=== PATIENT | male | born 1950 | race Two or more races ===

== ENCOUNTER 2020-09-16 10:29 | Outpatient (REF) | payer MEDICARE, OTHER, SELFPAY ==
--- NOTE | 2020-09-16 10:37 | US_ITS ---
EXAMINATION: US VENOUS ULTRASOUND WITH DOPPLER LOWER EXTREMITY, LEFT CLINICAL INFORMATION: History of DVT COMPARISON: Previous exam July 2013 TECHNIQUE: Ultrasound of the deep veins is performed from the hip to the calf with compression sonography and color and pulse Doppler assessment. Spectral analysis with color-flow imaging is performed. FINDINGS: There is normal venous compression and respiratory variation and augmented flow. The visualized common femoral vein, superficial femoral vein, profunda femoral vein, popliteal vein, and the trifurcation region shows no evidence of deep venous thrombosis. There is no significant popliteal fossa cyst. If the patient's symptoms persist, followup ultrasound in 5 days 7 days might be of value to exclude proximal propagation from a non-visualized calf vein. US/US venous duplex LE IMPRESSION: No DVT demonstrated in the left lower extremity.
== END 2020-09-16 10:30 | disposition home or self-care (01) ==
LOC: HO.HMGCX 10:29
PROVIDERS: PCP Internal Medicine; Visit Provider Internal Medicine
DX: Z86.718 Personal history of other venous thrombosis and embolism (principal)
CPT/HCPCS: 93971

== ENCOUNTER 2020-10-02 15:38 | Outpatient (REF) | payer MEDICARE, OTHER, SELFPAY ==
--- NOTE | 2020-10-02 15:43 | XR_ITS ---
EXAMINATION: XR FOOT, LEFT CLINICAL INFORMATION: Left foot pain COMPARISON: 10/20/2019 TECHNIQUE: AP, lateral, and oblique views of the left foot. FINDINGS: No fracture or dislocation. Alignment is anatomic. Joint spaces are mildly narrowed at the interphalangeal joints. Remaining joint spaces are maintained. Mild soft tissue swelling of the forefoot. No ankle joint effusion. XR/XR foot LT min 3V IMPRESSION: Mild distal soft tissue swelling with arthritic changes of the digits. Otherwise unremarkable appearance of the foot.
== END 2020-10-02 15:39 | disposition home or self-care (01) ==
LOC: HO.HMGCX 15:38
PROVIDERS: PCP Internal Medicine; Visit Provider Internal Medicine
DX: M79.672 Pain in left foot (principal); I82.4Z9 Acute embolism and thrombosis of unspecified deep veins of unspecified distal lower extremity
CPT/HCPCS: 73630

== ENCOUNTER 2020-10-07 12:49 | Outpatient (REF) | payer MEDICARE, OTHER, SELFPAY ==
--- NOTE | 2020-10-07 13:00 | US_ITS ---
EXAMINATION: US VENOUS ULTRASOUND WITH DOPPLER LOWER EXTREMITY, LEFT CLINICAL INFORMATION: Swelling and pain. History of greater saphenous vein stripping. COMPARISON: Previous exam most recent 09/16/2020 TECHNIQUE: Ultrasound of the deep veins is performed from the hip to the calf with compression sonography and color and pulse Doppler assessment. Spectral analysis with color-flow imaging is performed. FINDINGS: There is normal venous compression and respiratory variation and augmented flow. The visualized common femoral vein, superficial femoral vein, profunda femoral vein, popliteal vein, and the trifurcation region shows no evidence of deep venous thrombosis. There are varicosities at the ankle. There is no significant popliteal fossa cyst. There are small left inguinal lymph nodes. US/US venous duplex LE LT IMPRESSION: No DVT demonstrated in the left lower extremity.
== END 2020-10-07 12:50 | disposition home or self-care (01) ==
LOC: HO.HMGCX 12:49
PROVIDERS: PCP Internal Medicine; Visit Provider Internal Medicine
DX: I82.4Z9 Acute embolism and thrombosis of unspecified deep veins of unspecified distal lower extremity (principal); M25.572 Pain in left ankle and joints of left foot; R60.0 Localized edema
CPT/HCPCS: 93971

== ENCOUNTER → 2020-11-04 12:43 | Outpatient (BNVA) | payer MEDICARE, OTHER, SELFPAY | PROVIDERS: PCP Internal Medicine; Visit Provider Surgery Vascular Surgery | DX: I83.12 Varicose veins of left lower extremity with inflammation (principal) | CPT/HCPCS: 99202 ==

== ENCOUNTER 2020-11-18 12:49 | Outpatient (REF) | payer MEDICARE, OTHER, SELFPAY ==
--- NOTE | 2020-11-18 12:53 | US_ITS ---
EXAMINATION: US LOWER EXTREMITY VENOUS (REFLUX EXAM), BILATERAL CLINICAL INDICATION: Leg pain and varicose veins. COMPARISON: Previous exam most recent September 2020. TECHNIQUE: Color flow triplex imaging and compression Doppler was performed to evaluate both the deep and the superficial systems bilaterally. To evaluate the superficial system, the examination was performed in the upright position. Color-flow Doppler ultrasound and compression ultrasound were utilized. In addition, maneuvers were utilized to demonstrate reflux. FINDINGS: 1. DEEP VENOUS ULTRASOUND OF THE RIGHT LOWER EXTREMITY: Respiratory variation, normal compression and augmented flow are noted in the right common femoral vein as well as the right popliteal vein and there is no evidence of deep venous thrombosis at these locations. There is no evidence of reflux in the deep system in either the common femoral vein or mid femoral vein. There is 2 second reflux in the right popliteal vein. There is no evidence of a Munoz's cyst. 2. SUPERFICIAL ULTRASOUND WITH DOPPLER OF RIGHT LOWER EXTREMITY: The right greater saphenous vein is not identified. The right small saphenous vein measures 2 to 4 mm and does not demonstrate reflux. There is a business continuity coordinator arising from the right common femoral vein that measures 4 mm and does not demonstrate reflux. There 2 perforators in the calf that measure 2 mm and do not demonstrate reflux. There are multiple varicosities. The largest varicosity measures 8 mm in the mid calf and does not demonstrate reflux. There are multiple varicosities in the mid and distal thigh and calf that measure 4-5 mm and demonstrate 2.8 to 3.3 seconds reflux. 3. DEEP VENOUS ULTRASOUND OF THE LEFT LOWER EXTREMITY: Respiratory variation, normal compression and augmented flow are noted in the left common femoral vein as well as the left popliteal vein and there is no evidence of deep venous thrombosis at these locations. There is a 1.7 second reflux in the common femoral vein, 2.4 seconds reflux in the mid femoral vein and 3.1 second reflux in the popliteal vein. There is no evidence of a Munoz's cyst. 4. SUPERFICIAL ULTRASOUND WITH DOPPLER OF LEFT LOWER EXTREMITY: The left greater saphenous vein is not identified. The left small saphenous vein measures 2 mm and does not demonstrate reflux. There is a business continuity coordinator in the proximal thigh that measures 4 mm and does not demonstrate reflux. There is a business continuity coordinator in the lateral mid calf that measures 3 mm and demonstrates 2.5 second reflux. There are multiple varicosities in the thigh and calf measuring between 3 and 10 mm that demonstrate greater than 3 second reflux. US/US venous duplex LE BI IMPRESSION: 1. No evidence of DVT. Right popliteal vein and left common femoral, mid femoral and popliteal vein deep venous reflux. 2. Bilateral greater saphenous veins not seen post stripping. Normal caliber lesser saphenous veins without reflux. Bilateral varicosities with reflux. Left business continuity coordinator in the lateral mid calf with reflux.
== END 2020-11-18 12:50 | disposition home or self-care (01) ==
LOC: HO.US 12:49
PROVIDERS: Visit Provider Surgery Vascular Surgery
DX: I83.893 Varicose veins of bilateral lower extremities with other complications (principal); I83.12 Varicose veins of left lower extremity with inflammation
CPT/HCPCS: 93970

== ENCOUNTER → 2020-12-02 09:52 | Outpatient (BNVA) | payer MEDICARE, OTHER, SELFPAY | PROVIDERS: Visit Provider Surgery Vascular Surgery | DX: I83.12 Varicose veins of left lower extremity with inflammation (principal) | CPT/HCPCS: 99212 ==

== ENCOUNTER 2020-12-15 08:31 | Day surgery (SDC) | payer MEDICARE, OTHER, SELFPAY ==
[2020-12-09 10:36] VITALS: BMI 31.0
--- NOTE | 2020-12-12 10:25 | HO.ANESPROP2 ---
Documented by User: Tram Guerrero 12/12/20 10:31 HPI - Anesthesia Eval Consult details Narrative: 70yo M for Left Phlebectomy LLE DVT resolved by imaging 09/2020. Apixiban d/c'd [facility] Past Medical History Medical History Anxiety Gout H/O irritable bowel syndrome History of hepatitis B HTN (hypertension) Impaired fasting glucose Insomnia Lower leg DVT (deep venous thromboembolism), acute Mixed dyslipidemia Obesity Pain in joint, foot, left Varicose vein of leg Family History Family History Mother Varicose vein of leg Surgical History Surgical History H/O varicose vein stripping Hx of colonoscopy S/P lumbar microdiscectomy Status post rotator cuff surgery Social History Social History Are you a primary care team coordinator scheduler to a significant other at home: No Do you presently have visiting nurse or other home services: No Alcohol intake: current Alcohol intake frequency: 0-2 drinks per day Smoking Status: Former smoker Tobacco Type: Cigarette Smoking Quit Date: 2003 Use of substances other than those prescribed or required for medical reasons: Yes Substance Use Frequency: Weekly Have you been hit, kicked, punched, or otherwise hurt by someone within the past year? If so, by whom?: No Advance Directives: No Advance Directives Information Provided: No Advance Directives on File: No Recently lost weight without trying: No Meds Allergies Allergy/AdvReac Type Severity Reaction Status Date / Time No Known Allergies Allergy Verified 12/15/20 09:52 [No Known Allergies*] Home Medications Medication Instructions Recorded Confirmed Type pantoprazole 40 mg tablet,delayed 40 mg PO DAILY 09/18/20 12/09/20 History release flu vacc (65yr 0.5 ml IM DIRECTED 09/29/20 10/12/20 History up)-MF59C(PF) 60 mcg(15 mcgx4)/0.5 mL IM syringe Exam Exam Date and Time: December 12, 2020 1025 Height,Weight and Vital Signs: Height 5 ft 9 in Weight 95.254 kg Assessment and Plan Assessment Anesthesia Assessment: Chart Reviewed Documented by User: Tono Carnes 12/15/20 10:30 PMFSH Past Medical History Medical History Anxiety Gout H/O irritable bowel syndrome History of hepatitis B HTN (hypertension) Impaired fasting glucose Insomnia Lower leg DVT (deep venous thromboembolism), acute Mixed dyslipidemia Obesity Pain in joint, foot, left Varicose vein of leg Family History Family History Mother Varicose vein of leg Surgical History Surgical History H/O varicose vein stripping Hx of colonoscopy S/P lumbar microdiscectomy Status post rotator cuff surgery Social History Social History Are you a primary care team coordinator scheduler to a significant other at home: No Do you presently have visiting nurse or other home services: No Alcohol intake: current Alcohol intake frequency: 0-2 drinks per day Smoking Status: Former smoker Tobacco Type: Cigarette Smoking Quit Date: 2003 Use of substances other than those prescribed or required for medical reasons: Yes Substance Use Frequency: Weekly Have you been hit, kicked, punched, or otherwise hurt by someone within the past year? If so, by whom?: No Advance Directives: No Advance Directives Information Provided: No Advance Directives on File: No Recently lost weight without trying: No Meds Allergies Allergy/AdvReac Type Severity Reaction Status Date / Time No Known Allergies Allergy Verified 12/15/20 09:52 [No Known Allergies*] Home Medications Medication Instructions Recorded Confirmed Type pantoprazole 40 mg tablet,delayed 40 mg PO DAILY 09/18/20 12/09/20 History release flu vacc (65yr 0.5 ml IM DIRECTED 09/29/20 10/12/20 History up)-MF59C(PF) 60 mcg(15 mcgx4)/0.5 mL IM syringe Exam Airway Mallampati Class: II TM Dist: >3cm Neck ROM: Full Loose/Missing/Broken Teeth: Yes Heart: [id number] Lungs: cta b/l Assessment and Plan Assessment Anesthesia Assessment: Anesthesia Plan Discussed, PAT Visit and Chart Reviewed Final Anesthetic Review NPO: Yes ASA Class: II Final Preanesthetic Review: No Changes in Pt Med Stat, Meds/Allgs Chart Reviewed, Consent Obtained/Reviewed and Anes Risks/Benef Reviewed Patient Risk: Low Procedure Risk: Low Assessment/Block/Sedation in SS: Assess/Block/Sedation-SS Anesthetic Plan Anesthetic Plan: GA Disposition: Standard PACU
[2020-12-15 09:18] LABS: Hematocrit 43.6 % (42-52); Hemoglobin 15.1 g/dl (14.0-18.0); Mean Corpuscular HGB Conc 34.6 g/dl (31.0-36.0); Mean Corpuscular Hemoglobin 32.3 pg (27.0-33.0); Mean Corpuscular Volume 93.4 fL (80-98); Mean Platelet Volume 9.7 fL (9.4-12.4); Platelet Count 162 X10*3/uL (160-400); Red Blood Count 4.67 X10*6/uL (4.60-5.80); Red Cell Distribution Width 12.8 % (11.0-16.0); White Blood Count 6.1 X10*3/uL (4.8-10.8)
[2020-12-15 09:24] LABS: Prothrombin Time 11.4 SEC (10.8-13.0)
[2020-12-15 09:26] LABS: Partial Thromboplastin Time 32.8 SEC (24.1-38.0)
[2020-12-15] MEDS: Lactated Ringers 1,000 ML 100 ML IVCONT (09:34)
[2020-12-15 09:35] VITALS: BP 134/80; PULSE 64; RESP 18; TEMP 36.8; O2SAT 95
[2020-12-15 09:44] LABS: Anion Gap 14 (12-20); Blood Urea Nitrogen 8 mg/dL (9-16); Calcium 8.2 mg/dL (8.4-10.2); Carbon Dioxide 27 mmol/L (22-29); Chloride 103 mmol/L (96-108); Creatinine Clr Calc Pharmacy 97.8; Estimated Glomerular Filt Rate > 60; Glucose Random 104 mg/dL (60-115); Potassium 3.8 mmol/L (3.3-5.1); Sodium 140 mmol/L (135-145)
--- NOTE | 2020-12-15 09:56 | PC.NURSE ---
left leg no open areas noted. pulses per doppler/marked bilat. +capillary refill, no edema noted.
[2020-12-15 12:20] VITALS: BP 147/92; PULSE 82; RESP 12; TEMP 36.1; O2SAT 99
[2020-12-15 12:25] VITALS: BP 155/86; PULSE 80; RESP 16; O2SAT 100
--- NOTE | 2020-12-15 12:29 | MHC.SHP ---
Pre-Procedural Eval Section B Chief Complaint: Varicose Veins Allergies: Allergies Allergy/AdvReac Type Severity Reaction Status Date / Time No Known Allergies Allergy Verified 12/15/20 09:52 [No Known Allergies*] Plan I have reviewed the history and physical and performed a pertinent physical examination on my patient. No changes have occurred unless specified.
--- NOTE | 2020-12-15 12:29 | W.PM.OPN ---
Operative Note Operative Note Date of Service: 12/15/20 Narrative: Preoperative diagnosis: Left leg varicose veins with inflammation Postoperative diagnosis: Same Procedure: 1. Left leg microphlebectomy Two. Left leg venous cluster ligation Surgeon:Matthew Duggan M.D. Instructor Of Education: None Anesthesia: General Specimens: 1 Drains: None Estimated blood loss: Minimal Indications: 70-year-old gentleman who has a history inflammatory varicosities presents for left leg microphlebectomy. Risks benefits complications were discussed in detail with patient. He understood and consented. Procedure in detail:Varicose veins were marked in the standing position on the left leg and the patient was then placed in the supine position. The left lower extremity was prepared and draped to allow knee flexion in the sterile field. The patient had large superficial varicose veins with significant symptoms of pain. It was therefore determined to perform microphlebectomies of the clusters of varicose veins. The patient had bulging varicose veins which were previously marked in the standing position. A small stab incision was made longitudinally directly overlying the varicose vein in the calf and the varicose vein was grasped with a hemostat aided by a vein hook. It was then dissected as far proximally and distally as possible and avulsed. A total of 25 stab incisions were made and the procedure of stab phlebectomies was repeated 25 times. In addition and the medial aspect of the left thigh cluster was noted. Cutdown was made at the base of the cluster. This was ligated with 3-0 poly Sorb suture. Residual varicosities were removed from this site. Skin incision was then closed. Hemostasis was checked and stab incision sites were closed with steri-strips and sterile dressing was given with gauze and krilex wrap followed by an adriana bandage. There were no complications and blood loss was minimal. Post-Op instructions were given and a follow-up appointment was recommended. This note is constructed using voice recognition software. While every effort has been made to ensure accuracy, event planning manager errors may have been included. Thank you for allowing me to participate in the care of your patient. Yours sincerely, Matthew Duggan MD, FACS, R.P.V.I.
[2020-12-15 12:30] VITALS: BP 168/86; PULSE 75; RESP 16; O2SAT 96
[2020-12-15] MEDS: oxyCODONE HCl Immed Release 5 MG TABLET 10 MG PO (12:34)
[2020-12-15 12:35] VITALS: BP 161/87; PULSE 69; RESP 16; O2SAT 97
[2020-12-15 12:50] VITALS: BP 150/92; PULSE 65; RESP 18; TEMP 36.1; O2SAT 96
--- NOTE | 2020-12-15 14:39 | HO.POSTANES ---
Post Anesthesia Evaluation Post Anesthesia Evaluation Vital Signs: Vital Signs Temp Pulse Resp BP Pulse Ox 12/15/20 12:50 97.0 F 65 18 150/92 H 96 12/15/20 12:35 69 16 161/87 H 97 12/15/20 12:30 75 16 168/86 H 96 12/15/20 12:25 80 16 155/86 H 100 12/15/20 12:20 97.0 F 82 12 147/92 H 99 12/15/20 09:35 98.3 F 64 18 134/80 95 Anesthesia: General Pain Control: Satisfactory Nausea/Vomiting: None Hydration: Adequate Anesthesia-Related Issues: No Anes. Related Issues
== END 2020-12-15 13:09 | disposition home or self-care (01) ==
PROVIDERS: PCP Internal Medicine; Visit Provider Surgery Vascular Surgery
PROC: (CPT 37766; principal; 2020-12-15 10:20)
DX: I83.12 Varicose veins of left lower extremity with inflammation (principal); I10 Essential (primary) hypertension; R73.01 Impaired fasting glucose; Z79.899 Other long term (current) drug therapy; Z86.718 Personal history of other venous thrombosis and embolism; Z86.19 Personal history of other infectious and parasitic diseases
CPT/HCPCS: 37766; 37785; 36415; 80048; 85027; 85610; 85730; 88304; J0690; J1100; J2250; J2405; J3010

== ENCOUNTER → 2020-12-25 14:08 | Outpatient (BNVA) | payer MEDICARE, OTHER, SELFPAY | PROVIDERS: PCP Internal Medicine; Visit Provider Surgery Vascular Surgery | DX: I83.11 Varicose veins of right lower extremity with inflammation (principal) | CPT/HCPCS: 99212 ==

== ENCOUNTER 2021-01-01 09:30 | Outpatient (REF) | payer MEDICARE, OTHER, SELFPAY ==
[2021-01-01 11:27] LABS: Estimated Average Glucose 85 mg/dL; Hemoglobin A1c % 4.6 %
[2021-01-01 12:01] LABS: Alanine Aminotransferase 23 U/L (0-40); Anion Gap 14 (12-20); Aspartate Amino Transferase 24 U/L (5-37); Blood Urea Nitrogen 8 mg/dL (9-16); Calcium 8.2 mg/dL (8.4-10.2); Carbon Dioxide 26 mmol/L (22-29); Chloride 107 mmol/L (96-108); Cholesterol 150 mg/dL; Estimated Glomerular Filt Rate > 60; Glucose Fasting 96 mg/dL (60-99); HDL Cholesterol 63 mg/dL; LDL Cholesterol Calculated 47 mg/dl; Potassium 3.9 mmol/L (3.3-5.1); Sodium 143 mmol/L (135-145); Triglycerides 201 mg/dL; Uric Acid 7.4 mg/dL (3.4-7.0)
== END 2021-01-01 09:31 | disposition home or self-care (01) ==
LOC: HO.HMGCLDS 09:30
PROVIDERS: PCP Internal Medicine; Visit Provider Internal Medicine
DX: R60.0 Localized edema (principal); R73.01 Impaired fasting glucose; M1A.0790 Idiopathic chronic gout, unspecified ankle and foot, without tophus (tophi); E78.2 Mixed hyperlipidemia; I10 Essential (primary) hypertension
CPT/HCPCS: 36415; 80048; 80061; 83036; 84450; 84460; 84550

== ENCOUNTER → 2021-01-02 09:23 | Outpatient (BNVA) | payer MEDICARE, OTHER, SELFPAY | PROVIDERS: PCP Internal Medicine; Visit Provider Surgery Vascular Surgery | DX: I83.11 Varicose veins of right lower extremity with inflammation (principal) | CPT/HCPCS: 37765 ==

== ENCOUNTER → 2021-01-15 08:51 | Outpatient (BNVA) | payer MEDICARE, OTHER, SELFPAY | PROVIDERS: PCP Internal Medicine; Visit Provider Surgery Vascular Surgery | DX: I83.11 Varicose veins of right lower extremity with inflammation (principal) | CPT/HCPCS: 99212 ==

== ENCOUNTER 2021-04-03 09:36 | Outpatient (REF) | payer MEDICARE, OTHER, SELFPAY ==
[2021-04-03 11:31] LABS: Ammonia 29 umol/L (13-55)
[2021-04-03 12:37] LABS: Alanine Aminotransferase 25 U/L (0-40); Albumin Level 3.9 g/dL (3.5-5.0); Alkaline Phosphatase 78 U/L (39-117); Anion Gap 13 (12-20); Aspartate Amino Transferase 22 U/L (5-37); Bilirubin Total 0.7 mg/dL (0.0-1.0); Blood Urea Nitrogen 6 mg/dL (9-16); Calcium 8.8 mg/dL (8.4-10.2); Carbon Dioxide 24 mmol/L (22-29); Chloride 107 mmol/L (96-108); Cholesterol 167 mg/dL; Estimated Glomerular Filt Rate > 60; Glucose Fasting 92 mg/dL (60-99); HDL Cholesterol 55 mg/dL; LDL Cholesterol Calculated 91 mg/dl; Magnesium 1.4 mg/dL (1.6-2.6); Potassium 4.5 mmol/L (3.3-5.1); Sodium 139 mmol/L (135-145); Total Protein 6.1 g/dL (6.5-8.0); Triglycerides 105 mg/dL
[2021-04-03 12:38] LABS: ~Hepatitis B Surface Antibody REACTIVE (Nonreactive)
[2021-04-03 12:59] LABS: HBsAGNum1 0.22 S/CO (0.00-0.99); Hepatitis B Surface Antigen Negative (Negative)
[2021-04-03 14:16] LABS: ~HepC Num1 0.85 S/CO (0.00-0.79); ~HepC Num2 0.71
[2021-04-03 14:17] LABS: HBc Num1 3.31 S/CO (0.00-0.79); HBc Num2 3.01 S/CO; HBc Num3 2.93 S/CO; Hepatitis B Core Antibody Reactive (Nonreactive); ~Hepatitis C Antibody NONREACTIVE (Nonreactive)
== END 2021-04-03 09:37 | disposition home or self-care (01) ==
LOC: HO.HMGCLDS 09:36
PROVIDERS: PCP Internal Medicine; Visit Provider Internal Medicine
DX: M1A.0790 Idiopathic chronic gout, unspecified ankle and foot, without tophus (tophi) (principal); E78.2 Mixed hyperlipidemia; I10 Essential (primary) hypertension; K72.90 Hepatic failure, unspecified without coma
CPT/HCPCS: 36415; 80053; 80061; 82140; 83735; 84550; 86704; 86706; 86803; 87340

== ENCOUNTER 2021-06-13 15:25 | Outpatient (REF) | payer MEDICARE, OTHER, SELFPAY | END 2021-06-13 15:26 | disposition home or self-care (01) | LOC: HO.LNP 15:25 | PROVIDERS: Visit Provider Physician Assistant Medical | DX: Z20.822 Contact with and (suspected) exposure to COVID-19 (principal) | CPT/HCPCS: U0003; U0005 ==

== ENCOUNTER 2022-10-04 10:19 | Outpatient (REF) | payer MEDICARE, OTHER, SELFPAY ==
[2022-10-04 10:59] LABS: Ammonia 22 umol/L (13-55)
[2022-10-04 13:11] LABS: Alanine Aminotransferase 18 U/L (0-40); Albumin Level 3.8 g/dL (3.5-5.0); Alkaline Phosphatase 72 U/L (39-117); Anion Gap 10 (12-20); Aspartate Amino Transferase 17 U/L (5-37); Bilirubin Total 0.8 mg/dL (0.0-1.0); Blood Urea Nitrogen 10 mg/dL (9-16); Calcium 8.7 mg/dL (8.4-10.2); Carbon Dioxide 29 mmol/L (22-29); Chloride 105 mmol/L (96-108); Cholesterol 166 mg/dL; Estimated Glomerular Filt Rate > 60; Glucose Fasting 91 mg/dL (60-99); HDL Cholesterol 54 mg/dL; LDL Cholesterol Calculated 88 mg/dl; Potassium 4.4 mmol/L (3.3-5.1); Sodium 140 mmol/L (135-145); Total Protein 5.9 g/dL (6.5-8.0); Triglycerides 120 mg/dL; Uric Acid 4.8 mg/dL (3.4-7.0); Vitamin D 25-OH Total 28.1 ng/mL (>30)
[2022-10-04 13:20] LABS: Folate 18.4 ng/mL (> or = 4.0); Vitamin B12 495 pg/mL (200-900)
[2022-10-04 13:33] LABS: Magnesium 1.2 mg/dL (1.6-2.6)
[2022-10-09 06:41] LABS: Vitamin B1 42 nmol/L (8-30)
== END 2022-10-04 10:20 | disposition home or self-care (01) ==
LOC: HO.LAB 10:19
PROVIDERS: PCP Internal Medicine; Visit Provider Internal Medicine
DX: E78.2 Mixed hyperlipidemia (principal); G47.00 Insomnia, unspecified; I10 Essential (primary) hypertension; M1A.0790 Idiopathic chronic gout, unspecified ankle and foot, without tophus (tophi); R12 Heartburn; R73.01 Impaired fasting glucose; E66.9 Obesity, unspecified
CPT/HCPCS: 36415; 80053; 80061; 82140; 82306; 82607; 82746; 83735; 84425; 84550

== ENCOUNTER 2022-10-08 11:01 | Outpatient (REF) | payer MEDICARE, OTHER, SELFPAY ==
[2022-10-08 15:46] LABS: Magnesium 1.3 mg/dL (1.6-2.6)
== END 2022-10-08 11:02 | disposition home or self-care (01) ==
LOC: HO.HMGCLDS 11:01
PROVIDERS: PCP Internal Medicine; Visit Provider Internal Medicine
DX: E83.42 Hypomagnesemia (principal)
CPT/HCPCS: 36415; 83735

== ENCOUNTER 2022-10-12 10:28 | Outpatient (REF) | payer MEDICARE, OTHER, SELFPAY ==
[2022-10-12 13:14] LABS: Anion Gap 12 (12-20); Blood Urea Nitrogen 15 mg/dL (9-16); Calcium 9.1 mg/dL (8.4-10.2); Carbon Dioxide 29 mmol/L (22-29); Chloride 104 mmol/L (96-108); Estimated Glomerular Filt Rate > 60; Glucose Random 84 mg/dL (60-115); Magnesium 1.3 mg/dL (1.6-2.6); Potassium 4.4 mmol/L (3.3-5.1); Sodium 141 mmol/L (135-145)
== END 2022-10-12 10:29 | disposition home or self-care (01) ==
LOC: HO.HMGCLDS 10:28
PROVIDERS: Visit Provider Internal Medicine
DX: E83.42 Hypomagnesemia (principal)
CPT/HCPCS: 36415; 80048; 83735

== ENCOUNTER 2022-11-03 10:05 | Outpatient (REF) | payer MEDICARE, OTHER, SELFPAY ==
[2022-11-03 12:57] LABS: Anion Gap 10 (12-20); Blood Urea Nitrogen 7 mg/dL (9-16); Calcium 8.8 mg/dL (8.4-10.2); Carbon Dioxide 29 mmol/L (22-29); Chloride 108 mmol/L (96-108); Estimated Glomerular Filt Rate > 60; Glucose Fasting 94 mg/dL (60-99); Potassium 3.9 mmol/L (3.3-5.1); Sodium 143 mmol/L (135-145)
[2022-11-03 14:06] LABS: Magnesium 1.2 mg/dL (1.6-2.6)
== END 2022-11-03 10:06 | disposition home or self-care (01) ==
LOC: HO.HMGCLDS 10:05
PROVIDERS: PCP Internal Medicine; Visit Provider Internal Medicine
DX: E83.42 Hypomagnesemia (principal)
CPT/HCPCS: 36415; 80048; 83735

== ENCOUNTER 2022-11-11 09:45 | Outpatient (REF) | payer MEDICARE, OTHER, SELFPAY ==
[2022-11-11 11:55] LABS: Magnesium 1.4 mg/dL (1.6-2.6)
== END 2022-11-11 09:46 | disposition home or self-care (01) ==
LOC: HO.HMGCLDS 09:45
PROVIDERS: PCP Internal Medicine; Visit Provider Internal Medicine
DX: E83.42 Hypomagnesemia (principal)
CPT/HCPCS: 36415; 83735

== ENCOUNTER 2022-11-19 10:29 | Outpatient (REF) | payer MEDICARE, OTHER, SELFPAY ==
[2022-11-19 12:33] LABS: Magnesium 1.3 mg/dL (1.6-2.6)
== END 2022-11-19 10:30 | disposition home or self-care (01) ==
LOC: HO.HMGCLDS 10:29
PROVIDERS: PCP Internal Medicine; Visit Provider Internal Medicine
DX: E83.42 Hypomagnesemia (principal)
CPT/HCPCS: 36415; 83735

== ENCOUNTER 2022-11-23 10:36 | Outpatient (REF) | payer MEDICARE, OTHER, SELFPAY ==
[2022-11-23 16:23] LABS: Anion Gap 12 (12-20); Blood Urea Nitrogen 11 mg/dL (9-16); Calcium 9.2 mg/dL (8.4-10.2); Carbon Dioxide 26 mmol/L (22-29); Chloride 107 mmol/L (96-108); Estimated Glomerular Filt Rate > 60; Glucose Random 94 mg/dL (60-115); Phosphorus 2.4 mg/dL (2.7-4.5); Potassium 4.2 mmol/L (3.3-5.1); Sodium 141 mmol/L (135-145)
[2022-11-23 20:18] LABS: Magnesium 1.3 mg/dL (1.6-2.6)
[2022-11-27 12:43] LABS: Creatinine, Random Urine 143 mg/dL (20-320); Magnesium, Random Urine 76 mg/g creat (22-130)
== END 2022-11-23 10:37 | disposition home or self-care (01) ==
LOC: HO.HMGCLDS 10:36
PROVIDERS: PCP Internal Medicine; Visit Provider Internal Medicine
DX: E83.42 Hypomagnesemia (principal)
CPT/HCPCS: 36415; 80048; 83735; 84100

== ENCOUNTER 2022-12-15 10:16 | Outpatient (REF) | payer MEDICARE, OTHER, SELFPAY ==
[2022-12-15 11:35] LABS: Appearance Urine Clear; Color Urine Yellow; Glucose Urine UA Negative (Negative); Leukocyte Esterase Urine Negative (Negative); Nitrite Urine Negative (Negative); PH 6.5 (5.0-9.0); Specific Gravity - Urine <= 1.005 (1.005-1.025); Urine Blood Negative (Negative); Urine Ketones Negative (Negative); Urine Protein Negative (Neg-Trace)
[2022-12-15 11:38] LABS: Bacteria Urine None Seen (None Seen); Hyaline Casts Urine 0-2 /LPF (0-2); RBC Urine 0-2 /HPF (0-2); Squamous Epithelial Cell Urine 0-2 /HPF (0-2); WBC Urine 0-5 /HPF (0-5)
[2022-12-15 11:43] LABS: Anion Gap 10 (12-20); Blood Urea Nitrogen 9 mg/dL (9-16); Calcium 9.2 mg/dL (8.4-10.2); Carbon Dioxide 27 mmol/L (22-29); Chloride 106 mmol/L (96-108); Estimated Glomerular Filt Rate > 60; Sodium 139 mmol/L (135-145)
[2022-12-15 11:49] LABS: Magnesium 1.2 mg/dL (1.6-2.6)
[2022-12-15 12:03] LABS: Creatinine Urine 12.76 mg/dL; Microalbumin Urine < 5.0 mg/L; Total Protein Urine Random < 7 mg/dL (<12)
== END 2022-12-15 10:17 | disposition home or self-care (01) ==
LOC: HO.LAB 10:16
PROVIDERS: PCP Internal Medicine; Visit Provider Internal Medicine Nephrology
DX: E83.42 Hypomagnesemia (principal)
CPT/HCPCS: 36415; 80051; 81001; 82043; 82310; 82565; 83735; 84156; 84520

== ENCOUNTER → 2023-01-14 09:09 | Outpatient (BNVA) | payer OTHER, MEDICARE, SELFPAY | PROVIDERS: PCP Internal Medicine; Visit Provider Nurse Practitioner Family | DX: Z13.89 Encounter for screening for other disorder (principal) ==

== ENCOUNTER → 2023-01-17 12:08 | Outpatient (BNVA) | payer OTHER, MEDICARE, SELFPAY | PROVIDERS: PCP Internal Medicine; Referring Provider Internal Medicine; Visit Provider Nurse Practitioner Family | DX: Z13.89 Encounter for screening for other disorder (principal) ==

== ENCOUNTER 2023-01-18 13:04 | Outpatient (REF) | payer OTHER, MEDICARE, SELFPAY ==
--- NOTE | ~2023-01-18 | XR_ITS ---
EXAMINATION: XR HIP, RIGHT CLINICAL INFORMATION: Pain right hip COMPARISON: None TECHNIQUE: Two views of the right hip. FINDINGS: Bones and soft tissues are normal. No fracture. Alignment is anatomic. Hip joint space is maintained. XR/XR hip RT min 2V IMPRESSION: Unremarkable right hip.
== END 2023-01-18 13:05 | disposition home or self-care (01) ==
LOC: HO.HMGCX 13:04
PROVIDERS: PCP Internal Medicine; Visit Provider Internal Medicine
DX: M25.551 Pain in right hip (principal)
CPT/HCPCS: 73502

== ENCOUNTER → 2023-01-19 10:40 | Outpatient (BNVA) | payer OTHER, MEDICARE, SELFPAY | PROVIDERS: PCP Internal Medicine; Visit Provider Nurse Practitioner Family | DX: Z13.89 Encounter for screening for other disorder (principal) ==

== ENCOUNTER 2023-01-20 15:26 | Outpatient (REF) | payer OTHER, MEDICARE, SELFPAY | END 2023-01-20 15:27 | disposition home or self-care (01) | LOC: HO.LNP 15:26 | PROVIDERS: Visit Provider Nurse Practitioner Family | DX: Z13.89 Encounter for screening for other disorder (principal) | CPT/HCPCS: 83013 ==

== ENCOUNTER 2023-02-01 08:57 | Outpatient (REF) | payer MEDICARE, OTHER, SELFPAY ==
[2023-02-02 11:55] LABS: H Pylori Breath Test Negative (Negative)
== END 2023-02-01 08:58 | disposition home or self-care (01) ==
LOC: CF 08:57
PROVIDERS: PCP Internal Medicine; Visit Provider Nurse Practitioner Family
DX: Z11.0 Encounter for screening for intestinal infectious diseases (principal)
CPT/HCPCS: 36415; 83013

== ENCOUNTER → 2023-02-18 10:00 | Outpatient (BNVA) | payer OTHER, MEDICARE, SELFPAY | PROVIDERS: PCP Internal Medicine; Visit Provider Nurse Practitioner Family | DX: Z13.89 Encounter for screening for other disorder (principal) ==

== ENCOUNTER 2023-02-21 10:20 | Outpatient (REF) | payer MEDICARE, OTHER, SELFPAY ==
--- NOTE | ~2023-02-21 | XR_ITS ---
EXAMINATION: XR LUMBOSACRAL SPINE WITH OBLIQUES CLINICAL INFORMATION: Lower back pain. COMPARISON: Portions of the MRI lumbar spine dated 522 and 12. TECHNIQUE: AP, both oblique, and lateral views of the lumbar spine. Lateral view of the lumbosacral junction. FINDINGS: There is bony demineralization. There are very mild T11-L1 anterior wedge compression fractures. There is a mild lumbar levoscoliosis. At L2-L3, there is a 4 mm retrolisthesis. At L3-L4, there is a 4 mm retrolisthesis and mild posterior disc space narrowing. There is moderately severe disc space narrowing at L5-S1. No acute fracture or spondylolisthesis is seen. There is multi-level thoracolumbar spondylosis and facet arthropathy. There are aortoiliac atherosclerotic calcifications. XR/XR lumbar spine 4V min IMPRESSION: 1. There is mild degenerative disc disease at L2-L3 and L3-L4, and moderately severe degenerative disc disease is seen at L5-S1. 2. There are age-indeterminate mild T11-L1 anterior wedge compression fractures. 3. There is multi-level lumbar spondylosis and facet arthropathy.
== END 2023-02-21 10:21 | disposition home or self-care (01) ==
LOC: HO.HMGCX 10:20
PROVIDERS: PCP Internal Medicine; Visit Provider Internal Medicine
DX: M54.50 Low back pain, unspecified (principal)
CPT/HCPCS: 72110

== ENCOUNTER 2023-02-22 09:13 | Outpatient (REF) | payer MEDICARE, OTHER, SELFPAY ==
[2023-02-22 12:02] LABS: Alanine Aminotransferase 14 U/L (0-40); Anion Gap 9 (12-20); Aspartate Amino Transferase 18 U/L (5-37); Blood Urea Nitrogen 11 mg/dL (9-16); Carbon Dioxide 30 mmol/L (22-29); Chloride 107 mmol/L (96-108); Cholesterol 161 mg/dL; Estimated Glomerular Filt Rate > 60; Glucose Fasting 99 mg/dL (60-99); HDL Cholesterol 52 mg/dL; LDL Cholesterol Calculated 83 mg/dl; Magnesium 1.5 mg/dL (1.6-2.6); Potassium 4.2 mmol/L (3.3-5.1); Sodium 142 mmol/L (135-145); Triglycerides 134 mg/dL; Uric Acid 4.4 mg/dL (3.4-7.0)
[2023-02-22 12:17] LABS: TSH reflex Free T4 3.15 uIU/mL (0.32-4.0)
[2023-02-22 12:39] LABS: Folate 16.6 ng/mL (> or = 4.0); Vitamin B12 296 pg/mL (200-900); Vitamin D 25-OH Total 49.4 ng/mL (>30)
[2023-02-27 13:34] LABS: Vitamin B1 78 nmol/L (8-30)
[2023-03-01 12:59] LABS: Vitamin D 25-OH, D2 <4 ng/mL; Vitamin D 25-OH, D3 38 ng/mL; Vitamin D 25-OH, Total 38 ng/mL (30-100)
== END 2023-02-22 09:14 | disposition home or self-care (01) ==
LOC: HO.HMGCLDS 09:13
PROVIDERS: Nurse Practitioner Family; PCP Internal Medicine; Visit Provider Internal Medicine
DX: E51.9 Thiamine deficiency, unspecified (principal); E55.9 Vitamin D deficiency, unspecified; E78.2 Mixed hyperlipidemia; I10 Essential (primary) hypertension; M10.9 Gout, unspecified; R73.01 Impaired fasting glucose; K59.00 Constipation, unspecified
CPT/HCPCS: 36415; 80048; 80061; 82306; 82607; 82746; 83735; 84425; 84443; 84450; 84460; 84550

== ENCOUNTER 2023-03-02 09:49 | Day surgery (SDC) | payer MEDICARE, OTHER, SELFPAY ==
--- NOTE | 2023-03-01 12:11 | P.CONAN_ITS ---
Documented by User: Tram Guerrero NP 03/01/23 12:14 HPI - Anesthesia Eval Consult details Narrative: 72yo M for Upper Endoscopy Hx DVT with phlebectomy. No anticoag at this time. ETOH use disorder PMFSH Active Problems Active Problems: All Active Problems (Updated 01/18/23 @ 12:50 by Luiza Johnson MD) Hypomagnesemia (Acute) Acute right hip pain (Acute) Chronic gastroesophageal reflux disease (Acute) Thiamine deficiency (Acute) Vitamin D deficiency (Acute) Obesity (BMI 30.0-34.9) (Acute) Heartburn (Acute) Varicose vein of leg (Acute) Insomnia (Acute) Anxiety (Acute) Mixed dyslipidemia (Acute) HTN (hypertension) (Acute) Gout (Acute) Impaired fasting glucose (Acute) Past Medical History Medical History Acute right hip pain Alcohol use disorder Anxiety Chronic deep vein thrombosis (DVT) of distal vein of right lower extremity Chronic gastroesophageal reflux disease Gout H/O irritable bowel syndrome Heartburn Hepatic encephalopathy History of hepatitis B HTN (hypertension) Hyperammonemia Impaired fasting glucose Insomnia Lower leg DVT (deep venous thromboembolism), acute Mixed dyslipidemia Obesity (BMI 30.0-34.9) Pain in joint, foot, left Thiamine deficiency Varicose vein of leg Vitamin D deficiency Family History Family History Mother Varicose vein of leg Father No problems noted. Brother No problems noted. Brother No problems noted. Son No problems noted. Son No problems noted. Surgical History Surgical History H/O varicose vein stripping Hx of colonoscopy S/P lumbar microdiscectomy Status post rotator cuff surgery Social History Social History Household Members: Spouse Housing: House Are you a primary patient centered care specialist to a significant other at home: No Do you presently have visiting nurse or other home services: No Alcohol intake: former Patient Tobacco Use Status: Never used Tobacco Tobacco use type: Cigar e-Cigarette/Vaping Use: Never Used Use of substances other than those prescribed or required for medical reasons: Yes Substance Use Frequency: Occasionally Are you DNR?: No Advance Directives: No Advance Directives Information Provided: Yes Current occupational status: retired Cognitive needs: No Hearing needs: No Vision needs: Yes Meds Allergies Allergy/AdvReac Type Severity Reaction Status Date / Time No Known Allergies Allergy Verified 02/18/23 10:23 [No Known Allergies*] Home Medications Medication Instructions Recorded Confirmed Last Taken Type magnesium oxide 400 mg PO BID 01/18/23 02/25/23 Unknown History Exam Exam Date and Time: March 01, 2023 121 Pertinent Lab Results Pertinent Lab Results: Laboratory Tests 02/22/23 09:19 Sodium 142 Potassium 4.2 Chloride 107 Carbon Dioxide 30 H BUN 11 Creatinine 0.96 Assessment and Plan Assessment Anesthesia Assessment: Chart Reviewed Documented by User: Aman Mills MD 03/02/23 11:27 [facility] Past Medical History Medical History Acute right hip pain Alcohol use disorder Anxiety Chronic deep vein thrombosis (DVT) of distal vein of right lower extremity Chronic gastroesophageal reflux disease Gout H/O irritable bowel syndrome Heartburn Hepatic encephalopathy History of hepatitis B HTN (hypertension) Hyperammonemia Impaired fasting glucose Insomnia Lower leg DVT (deep venous thromboembolism), acute Mixed dyslipidemia Obesity (BMI 30.0-34.9) Pain in joint, foot, left Thiamine deficiency Varicose vein of leg Vitamin D deficiency Family History Family History Mother Varicose vein of leg Father No problems noted. Brother No problems noted. Brother No problems noted. Son No problems noted. Son No problems noted. Family history of problems with anesthesia: No Surgical History Surgical History H/O varicose vein stripping Hx of colonoscopy S/P lumbar microdiscectomy Status post rotator cuff surgery History of Problems with Anesthesia: No Social History Social History Household Members: Spouse Housing: House Are you a primary patient centered care specialist to a significant other at home: No Do you presently have visiting nurse or other home services: No Alcohol intake: former Patient Tobacco Use Status: Never used Tobacco Tobacco use type: Cigar e-Cigarette/Vaping Use: Never Used Use of substances other than those prescribed or required for medical reasons: Yes Substance Use Frequency: Occasionally Are you DNR?: No Advance Directives: No Advance Directives Information Provided: Yes Current occupational status: retired Cognitive needs: No Hearing needs: No Vision needs: Yes Meds Allergies Allergy/AdvReac Type Severity Reaction Status Date / Time No Known Allergies Allergy Verified 02/18/23 10:23 [No Known Allergies*] Home Medications Medication Instructions Recorded Confirmed Last Taken Type magnesium oxide 400 mg PO BID 01/18/23 02/25/23 Unknown History Exam Airway Mallampati Class: II TM Dist: >3cm Neck ROM: Full Assessment and Plan Assessment Anesthesia Assessment: Anesthesia Plan Discussed Final Anesthetic Review Family History of Problems with Anesthesia: No History of Problems with Anesthesia: No NPO: Yes ASA Class: II Final Preanesthetic Review: No Changes in Pt Med Stat, Meds/Allgs Chart Reviewed, Consent Obtained/Reviewed and Anes Risks/Benef Reviewed Patient Risk: Low Procedure Risk: Low Anesthetic Plan Anesthetic Plan: MAC: Disposition: Standard PACU
--- NOTE | 2023-03-02 09:44 | MHC.SHP ---
Pre-Procedural Eval Section A Date of Service: 03/02/23 The patient is an INPATIENT: No Section B Chief Complaint: vit d def,reflux disease,hypomagnesema Relevant Family History (Specify if Yes): No Relevant Social History: Tobacco Use Present Medications: see Short Stay Collaborative assessment Medical History: Significant History (Chronic deep vein thrombosis (DVT) of distal vein of right lower extremity Chronic gastroesophageal reflux disease Gout H/O irritable bowel syndrome Heartburn Hepatic encephalopathy History of hepatitis B HTN (hypertension) Hyperammonemia Impaired fasting glucose Insomnia Lower leg DVT (deep venous ) History of Previous Operations: Relevant previous surgery/procedure and date(s) (H/O varicose vein stripping Hx of colonoscopy S/P lumbar microdiscectomy Status post rotator cuff surgery) Allergies: Allergies Allergy/AdvReac Type Severity Reaction Status Date / Time No Known Allergies Allergy Verified 02/18/23 10:23 [No Known Allergies*] Review of Systems Sugical H&P ROS: Negative: Constitution, Cardiovascular, Respiratory and Gastrointestinal Exam Surgical H&P Exam: Normal: Heart, Normal: Lungs, Normal: Extremities and Normal: Abdomen Plan Diagnosis/Plan: Change (proceed with EGD for evaluation of GERD) I have reviewed the history and physical and performed a pertinent physical examination on my patient. No changes have occurred unless specified. Time Spent With Patient Time: Total time managing care of this patient today ____ minutes.
[2023-03-02 10:46] VITALS: BMI 28.7; BMI 29.5
[2023-03-02 10:50] VITALS: BP 147/74; PULSE 54; RESP 18; TEMP 36.6; O2SAT 98
[2023-03-02] MEDS: Lactated Ringers 1,000 ML 100 ML IVCONT (10:52)
--- NOTE | 2023-03-02 11:27 | W.PM.OPN ---
Operative Note Operative Note Date of Service: 03/02/23 Narrative: FLEXIBLE TRANSORAL UPPER GASTROINTESTINAL ENDOSCOPY WITH BIOPSIES Pre-op diagnosis: GERD, dyspepsia, abdominal bloating Post-op diagnosis: GERD, esophagitis, esophageal nodule, gastritis, gastric polyps, duodenal bulb ulcers Endoscopist:Dariel Diego MD Anesthesia:?MAC Consent: Indications for the procedure and potential complications of bleeding, perforation, reaction to medications and missed diagnosis were discussed with the patient and informed consent was obtained. Instrument: Olympus GIF H 190 mid size upper endoscope Monitoring: Vital signs and clinical assessment, continuous EKG monitoring, Pulse oximetry, Carbon Dioxide monitoring and blood pressure monitoring were done throughout the procedure. Procedure: The patient was placed in the left lateral decubitis position and pre-procedure medications were administered and a bite block was placed. The endoscope was inserted into the mouth and advanced under direct vision to the third part of duodenum. A careful inspection was made as the upper endoscope was withdrawn including a retroflexed examination of the proximal stomach; Findings and interventions are described below. Findings: Larynx: Normal Esophagus: GE junction at 40 cms. A single 1 cms linear erosion at the GE junction. A 7-8 mm benign appearing nodule in the proximal esophagus at 22 cms - removed with a cold bx Stomach: Moderate gastric erythema with nodular appearing gastric mucosa in the body of the stomach. Biopsies were obtained from the body and antrum. A few 5- 8 mm benign appearing polyps in the gastric body - biopsied. Grade 2 flap valve on retroflexed examination of the cardia. Duodenum: Multiple 10 to 15 mm superficial ulcers in the bulb and normal descending duodenum Intervention: Biopsies as noted above Impression and Post Procedure Diagnosis: Endoscopy Findings: ESOPHAGUS: A single 1 cms linear erosion at the GE junction. A 7-8 mm benign appearing nodule in the proximal esophagus at 22 cms - removed with a cold bx STOMACH: Gastritis and gastric polyps DUODENUM: superficial ulcers in the bulb Plan: Await pathology results Patient has an appointment on 03/14/23 in the GI Clinic with Lizbeth Balbuena FNP-BC. Above findings were reviewed with the patient and GERD and Gastric Polyps handouts were given in the discharge area. 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 BIOPSIES OBTAINED: A- SMALL BOWEL BXS? R/O CELIAC B- GASTRIC ANTRUM BXS? R/O H. PYLORI C-? GASTRIC BODY BXS D- GASTRIC POLYP E -ESOPHAGUS NODULE AT 20CM.
[2023-03-02 11:56] VITALS: BP 105/60; PULSE 50; RESP 17; TEMP 36.2; O2SAT 97
[2023-03-02 12:11] VITALS: BP 132/87; PULSE 57; RESP 16; O2SAT 98
== END 2023-03-02 12:51 | disposition home or self-care (01) ==
PROVIDERS: PCP Internal Medicine; Visit Provider Internal Medicine Gastroenterology
PROC: 0DJ08ZZ Inspection of Upper Intestinal Tract, Via Natural or Artificial Opening Endoscopic (ICD-10-PCS; CPT 43235; principal; 2023-03-02 11:00)
DX: K21.9 Gastro-esophageal reflux disease without esophagitis (principal); K20.80 Other esophagitis without bleeding; K29.50 Unspecified chronic gastritis without bleeding; K31.7 Polyp of stomach and duodenum; K26.9 Duodenal ulcer, unspecified as acute or chronic, without hemorrhage or perforation; K76.82 Hepatic encephalopathy; Z86.19 Personal history of other infectious and parasitic diseases; D13.0 Benign neoplasm of esophagus; I10 Essential (primary) hypertension; I82.4Z1 Acute embolism and thrombosis of unspecified deep veins of right distal lower extremity; E55.9 Vitamin D deficiency, unspecified; R73.01 Impaired fasting glucose; M10.20 Drug-induced gout, unspecified site; Z79.899 Other long term (current) drug therapy
CPT/HCPCS: 43239; 88305; 88342

== ENCOUNTER → 2023-03-14 10:11 | Outpatient (BNVA) | payer MEDICARE, OTHER, SELFPAY | PROVIDERS: PCP Internal Medicine; Visit Provider Nurse Practitioner Family | DX: K21.9 Gastro-esophageal reflux disease without esophagitis (principal); E83.42 Hypomagnesemia; R12 Heartburn | CPT/HCPCS: 99212 ==

== ENCOUNTER 2023-04-19 09:22 | Outpatient (REF) | payer MEDICARE, OTHER, SELFPAY ==
[2023-04-19 12:08] LABS: Alanine Aminotransferase 11 U/L (0-40); Anion Gap 11 (12-20); Aspartate Amino Transferase 14 U/L (5-37); Blood Urea Nitrogen 9 mg/dL (9-16); Calcium 9.4 mg/dL (8.4-10.2); Carbon Dioxide 29 mmol/L (22-29); Chloride 106 mmol/L (96-108); Cholesterol 150 mg/dL; Estimated Glomerular Filt Rate > 60; Glucose Fasting 100 mg/dL (60-99); HDL Cholesterol 61 mg/dL; LDL Cholesterol Calculated 58 mg/dl; Magnesium 1.7 mg/dL (1.6-2.6); Potassium 3.8 mmol/L (3.3-5.1); Sodium 142 mmol/L (135-145); Triglycerides 157 mg/dL; Uric Acid 4.9 mg/dL (3.4-7.0)
[2023-04-19 12:26] LABS: Vitamin D 25-OH Total 36.9 ng/mL (>30)
[2023-04-24 04:35] LABS: Vitamin B1 14 nmol/L (8-30)
== END 2023-04-19 09:23 | disposition home or self-care (01) ==
LOC: HO.HMGCLDS 09:22
PROVIDERS: PCP Internal Medicine; Visit Provider Internal Medicine
DX: E55.9 Vitamin D deficiency, unspecified (principal); E66.9 Obesity, unspecified; E78.2 Mixed hyperlipidemia; I10 Essential (primary) hypertension; R73.01 Impaired fasting glucose; E51.9 Thiamine deficiency, unspecified; M10.9 Gout, unspecified
CPT/HCPCS: 36415; 80048; 80061; 82306; 83735; 84425; 84450; 84460; 84550

== ENCOUNTER → 2023-05-02 13:29 | Outpatient (BNVA) | payer MEDICARE, OTHER, SELFPAY | PROVIDERS: PCP Internal Medicine; Visit Provider Nurse Practitioner Family | DX: K21.9 Gastro-esophageal reflux disease without esophagitis (principal); K58.0 Irritable bowel syndrome with diarrhea; K59.1 Functional diarrhea; R12 Heartburn; E83.42 Hypomagnesemia | CPT/HCPCS: 99212 ==

== ENCOUNTER 2023-07-12 09:41 | Outpatient (AMB) | payer MEDICARE, OTHER, SELFPAY ==
--- NOTE | 2023-07-12 10:18 | AM.OFFWIN_ITS ---
Intake Vital Signs 07/12/23 10:20 Height 5 ft 10 in Weight 86.636 kg BMI 27.4 BP 120/72 Blood Pressure Location Lt brachial Position Sitting Pulse 56 Pulse Source Pulse Oximeter Temp 97 F Temp Source Temporal Artery Scan Pulse Oximetry (%) 98 Oxygen Delivery Method Room Air Intake Visit Reasons: EP, Swelling/Pain to right ring finger Intake Note: Patient here for right hand ring finger swelling, he is unsure if he cut himself while cutting some fruit since he did poke himself with the tip of knife but it did not puncture. Patient Tobacco Use Status: Never used Tobacco Allergies No Known Allergies [No Known Allergies*] Allergy (Verified 07/12/23 10:24) Do you need a note to return to daycare/school/sports/work: No HPI HPI Comments History of Present Illness Details [id number] 72 year old male presents w/ R. ring finger discomfort X 2 days. Patient reports he may have nicked his finger with the tip of a knife but he is not sure. He also tells me this somewhat feels like gout, he has a hx of this and take allopurinol. No fevers, chills, numbness, or tingling PE w/ edema to entire r ring finger with full painless ROM. Cap refill < 2 sconds. Normal sensation distally. No wrist drop. Likely gout. but some suspicion for cellulitis. Unlikely septic joint, fx, dislocation, gangrene, necrosis Plan dc w/ keflex and prednison. Educated patient on diagnosis and treatment plan, answered all question, patient verbalizes understanding. At this time patient will be discharged home, advised to return with new or worsening symptoms. Educated on worrisome signs and symptoms and when to return. At this time I feel comfortable discharge home. FORMERLY [facility] Medical History Alcohol use disorder Anxiety Chronic deep vein thrombosis (DVT) of distal vein of right lower extremity Chronic gastroesophageal reflux disease Gout H/O irritable bowel syndrome Hepatic encephalopathy History of hepatitis B HTN (hypertension) Hyperammonemia Impaired fasting glucose Insomnia Lower leg DVT (deep venous thromboembolism), acute Mixed dyslipidemia Obesity (BMI 30.0-34.9) Pain in joint, foot, left Thiamine deficiency Varicose vein of leg Vitamin D deficiency Surgical History H/O varicose vein stripping History of esophagogastroduodenoscopy (EGD) Hx of colonoscopy S/P lumbar microdiscectomy Status post rotator cuff surgery Family History Mother Varicose vein of leg Father No problems noted. Brother No problems noted. Brother No problems noted. Son No problems noted. Son No problems noted. Social History Household Members: Spouse Housing: House Are you a primary medicare contact specialist to a significant other at home: No Do you presently have visiting nurse or other home services: No Alcohol intake: former Patient Tobacco Use Status: Never used Tobacco Tobacco use type: Cigar e-Cigarette/Vaping Use: Never Used Current occupational status: retired Cognitive needs: No Hearing needs: No Vision needs: Yes Review of Systems Const Details: Constitutional : No Weight loss, No Fever, No Chills, No Fatigue, No Malaise ENT/Mouth : No sore throat, No Rhinorrhea Eyes: No Eye Pain, No Swelling, No Redness Cardiovascular : No Chest Pain, No SOB, No Dyspnea on Exertion, No Orthopnea, No Edema, No Palpitations Respiratory : No Cough, No Sputum, No Wheezing Gastrointestinal : No Nausea, No Vomiting, No Diarrhea, No Constipation, No abdominal Pain, No Hematochezia, No Melena Genitourinary : No Dysuria, No Urinary Frequency, No Hematuria, Musculoskeletal : No joint pain, No Myalgias, No Joint Swelling Skin : No Skin Lesions, No rash Neuro : No Weakness, No Numbness, No Dizziness, No Headache Psych : No Anxiety/Panic, No Depression All other systems reviewed and are negative All systems reviewed & are unremarkable except as noted in HPI and below Physical Exam Vital Signs: Last Vital Signs Temp 97 F 07/12/23 10:20 Pulse 56 07/12/23 10:20 BP 120/72 07/12/23 10:20 Pulse Ox 98 07/12/23 10:20 Oxygen Delivery Method Room Air 07/12/23 10:20 BMI result Body Mass Index 27.4 vss Appearance: Alert.? Oriented X3.? No acute distress.? Head: Normocephalic, atraumatic, no step-offs or deformities Eyes: Pupils equal, round and reactive to light.? CVS: Normal heart rate and rhythm.? Pulses normal.? Respiratory: No respiratory distress.? Breath sounds normal.? Abdomen: Soft and nontender.? Skin: Skin warm and dry.? Normal skin color.? Normal skin turgor.? Extremities: No lower extremity edema.? No calf ttp. 5/5 strength to bilateral upper and lower extremities + edema to entire r ring finger with full painless ROM. Cap refill < 2 sconds. Normal sensation distally. No wrist drop. Neuro: Oriented X 3.? No motor deficit.? No sensory deficit. CN 2-12 intact Assessment & Plan Assessment & Plan (1) Finger pain: Code(s): M79.646 - Pain in unspecified finger(s) Plan Take your medications as prescribed. If you were prescribed antibiotics today, it is important that you take your medication to their entirety, do not skip any doses, do not finish them early. Follow-up with your primary care provider this week. Return to the emergency department with new or worsening symptoms. Such as fevers, chills, chest pain, shortness of breath, nausea, vomiting, dizziness, headache, vision changes, lethargy In case of emergency call 911 Medications: New prednisone 40 mg (2 x 20 mg) PO DAILY 5 days 10 tabs 0RF cephalexin 500 mg PO QID 7 days 28 caps 0RF Coding Level of Care Code Est Pt Level 3 (34228) Diagnoses Finger pain M79.646
[2023-07-12 10:20] VITALS: BP 120/72; PULSE 56; TEMP 36.1; O2SAT 98; BMI 27.4
== END 2023-07-12 11:27 | disposition home or self-care (01) ==
PROVIDERS: PCP Internal Medicine; Visit Provider Physician Assistant
DX: M79.646 Pain in unspecified finger(s) (principal)
CPT/HCPCS: 99213

== ENCOUNTER 2023-07-19 10:00 | Emergency (ER) | payer MEDICARE, OTHER, SELFPAY ==
--- NOTE | ~2023-07-19 | XR_ITS ---
EXAMINATION: XR FINGER, RIGHT CLINICAL INFORMATION: Fourth digit pain. COMPARISON: None available. TECHNIQUE: 3 views of the right fourth digit. FINDINGS: Mild osteoarthritis of the first carpometacarpal joint as well as 1st, 2nd and 3rd MCP joints (where there is narrowing of joint space, small osteophytes and/or subchondral cysts). Degenerative narrowing of joint space and osteophyte formation at multiple interphalangeal joints, worse at the 2nd and 3rd DIP joints. Mild degenerative subluxations at 2nd and 3rd DIP joints. Findings include small osteophytes of mildly degenerated 4th DIP joint. There is mild flexion of the 4th PIP joint. No erosions or periostitis. No acute fracture. 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 * Within the fourth digit, the osteoarthritis is mild at the DIP joint. The PIP joint is intact. No acute osseous injury.
[2023-07-19 10:06] VITALS: BP 131/76; PULSE 53; RESP 18; TEMP 36.6; O2SAT 100; BMI 27.3
[2023-07-19 11:13] LABS: MANUAL DIFF FLAG NO
[2023-07-19 11:16] LABS: Basophils Percent Auto 0.5 % (0-2); Eosinophils Absolute Auto 0.1 X10*3/uL (0.0-0.4); Eosinophils Percent Auto 0.9 % (0-4); Hematocrit 45.9 % (42.0-52.0); Hemoglobin 15.7 g/dl (14.0-18.0); Imm Gran Abs Auto 0.05 X10*3/uL (0.00-0.03); Imm Gran Pct Auto 0.6 % (0.0-0.4); Lymphocytes Absolute Auto 2.7 X10*3/uL (1.2-4.9); Mean Corpuscular HGB Conc 34.2 g/dl (31.0-36.0); Mean Corpuscular Hemoglobin 33.5 pg (27.0-33.0); Mean Corpuscular Volume 98.1 fL (80.0-98.0); Mean Platelet Volume 9.6 fL (9.4-12.4); Monocytes Absolute Auto 0.6 X10*3/uL (0.1-1.2); Monocytes Percent Auto 6.8 % (2-11); Neutrophils Absolute Auto 5.2 x10*3/uL (2.0-8.3); Neutrophils Percent Auto 60.2 % (45-73); Platelet Count 182 X10*3/uL (160-400); Red Blood Count 4.68 X10*6/uL (4.60-5.80); Red Cell Distribution Width 13.2 % (11.0-16.0); White Blood Count 8.7 X10*3/uL (4.8-10.8)
--- NOTE | 2023-07-19 11:32 | ED.EXTPRO ---
HPI - Extremity Problem General Chief complaint: Extremity Injury, Upper Stated complaint: infected finger r hand Time Seen by Provider: 07/19/23 10:11 Source: patient and RN notes reviewed Mode of arrival: ambulatory Limitations: no limitations History of Present Illness HPI Narrative: This is a 72-year-old male presenting to the emergency department with complaints of right 4th finger injury which occurred 2-3 weeks ago. Patient states that around 3 weeks ago he believes that he poked his right 4th finger on a knife while cutting a watermelon. Patient was seen at urgent care on July 12, 2023 and was discharged home with Keflex and prednisone as unclear whether not this was a gouty flare up or cellulitis. Patient states that his symptoms improved for 1 day however states that his symptoms are now worsening. He is unable to fully strain his right 4th digit. He reports pain to his PIP. No fevers, chills, chest pain, shortness breath, nausea vomiting or diarrhea. Denies any new injury or trauma. He is right-handed No other complaints or concerns at this time. MD Complaint: extremity pain, joint swelling and joint pain Pain Consistency: constant Location: right and upper extremity Quality: aching Radiation: none Relieving factors: nothing Exacerbating factors: nothing Associated symptoms: denies other symptoms Related Data Previous Rx's Medication Instructions Recorded amlodipine 5 mg tablet 5 mg PO DAILY #90 tabs 11/17/22 cholecalciferol (vitamin D3) 50 50 mcg PO DAILY #90 caps 01/18/23 mcg (2,000 unit) capsule atorvastatin 10 mg tablet 10 mg PO DAILY #90 tabs 02/18/23 methylcellulose (laxative) 500 mg 500 mg PO DAILY #30 tabs 02/18/23 tablet (Citrucel) omeprazole 20 mg capsule,delayed 20 mg PO .COMPLEX #30 caps 03/14/23 release sucralfate 1 gram tablet 1 g PO BEDTIME #90 tabs 03/14/23 losartan 25 mg tablet 25 mg PO DAILY 90 days #90 tabs 04/21/23 magnesium oxide 400 mg PO BEDTIME #90 tabs 05/02/23 folic acid 1 mg tablet 1 mg PO DAILY #90 tabs 05/25/23 rivaroxaban 10 mg tablet 10 mg PO DAILY #10 tabs 06/13/23 alprazolam 0.5 mg tablet 0.25 mg PO DAILY PRN acute anxiety 06/17/23 attacks #20 tabs allopurinol 300 mg tablet 300 mg PO DAILY #90 tabs 06/28/23 escitalopram oxalate 20 mg tablet 20 mg PO DAILY #90 tabs 06/28/23 cephalexin 500 mg capsule 500 mg PO QID 7 days #28 caps 07/12/23 prednisone 20 mg tablet 40 mg PO DAILY 5 days #10 tabs 07/12/23 Allergies Allergy/AdvReac Type Severity Reaction Status Date / Time No Known Allergies Allergy Verified 07/12/23 10:24 [No Known Allergies*] Review of Systems Review of Systems: Yes all other systems are reviewed and are negative Constitutional: Constitutional: Reports as per [facility] Past Medical History Medical History Alcohol use disorder Anxiety Chronic deep vein thrombosis (DVT) of distal vein of right lower extremity Chronic gastroesophageal reflux disease Gout H/O irritable bowel syndrome Hepatic encephalopathy History of hepatitis B HTN (hypertension) Hyperammonemia Impaired fasting glucose Insomnia Lower leg DVT (deep venous thromboembolism), acute Mixed dyslipidemia Obesity (BMI 30.0-34.9) Pain in joint, foot, left Thiamine deficiency Varicose vein of leg Vitamin D deficiency Surgical History H/O varicose vein stripping History of esophagogastroduodenoscopy (EGD) Hx of colonoscopy S/P lumbar microdiscectomy Status post rotator cuff surgery Family History Family History Mother Varicose vein of leg Father No problems noted. Brother No problems noted. Brother No problems noted. Son No problems noted. Son No problems noted. Social History Social History Household Members: Spouse Housing: House Are you a primary care analyst to a significant other at home: No Do you presently have visiting nurse or other home services: No Alcohol intake: former Patient Tobacco Use Status: Never used Tobacco Tobacco use type: Cigar e-Cigarette/Vaping Use: Never Used Advance Directives: Yes Advance Directives Information Provided: No Advance Directives on File: No Current occupational status: retired Cognitive needs: No Hearing needs: No Vision needs: Yes Physical Exam Vital Signs: Vital Signs: Last Vital Signs Temp 97.8 F 07/19/23 10:06 Pulse 53 07/19/23 10:06 Resp 18 07/19/23 10:06 BP 131/76 07/19/23 10:06 Pulse Ox 100 07/19/23 10:06 O2 Del Method Room Air 07/19/23 10:06 BMI result Body Mass Index 27.3 Const: General: cooperative, comfortable and no acute distress Orientation/consciousness: patient oriented x3 Limitations: no limitations HEENT: Head: Yes normal to inspection, Yes normocephalic and Yes atraumatic Ears: hearing grossly normal bilaterally General nose exam: Normal external nose present Face and sinus: Yes normal facial exam Mouth: Normal oral and palatal mucosa present, oropharynx normal and moist mucous membranes Throat: Yes posterior oropharynx normal Eyes: General: appearance normal, both eyes and all related structures Eyelids: Yes eyelids normal Conjunctivae: conjunctivae normal Sclerae: sclerae normal Pupils: Equal, round and reactive pupils present EOM: EOMs intact bilaterally Neck: Neck: Yes normal visual inspection, Yes full ROM and Yes no lymphadenopathy Lymphatic: no lymphadenopathy noted Chest: Chest palpation & inspection: normal inspection of the chest Resp: Effort & Inspection: normal respiratory effort and able to speak in complete sentences Auscultation: clear to auscultation bilaterally, no crackles, no rales, no rhonchi and no wheezes Cardio: Rate: regular rate Rhythm: regular rhythm Heart sounds: S1 normal heart sound present and S2 normal heart sound present GI: Inspection: Yes normal to inspection Skin: General skin exam: no rashes or lesions noted Trauma: no lacerations or abrasions Wounds: no wounds Neuro: General: patient oriented x3 and moves all extremities Cranial nerves: Yes Equal, round and reactive pupils present Extrem: Other: Right fourth finger in flexed position at rest. Unable to flex and extend at DIP, Able to flex and extend at PIP. equistely TTP overlying the PIP. Mildly edematous, no surrounding erythema or warmth. Radial pulses 2+. Range of motion of the wirst is intact, wrist is nontender. General: Yes normal to inspection Right upper extremity: normal to inspection Left upper extremity: normal to inspection Right lower extremity: normal to inspection Left lower extremity: normal to inspection Course Reevaluation(s) Reevaluation #1: X-ray was performed revealing osteoarthritis of multiple joints in the hand. Within the 4th digit the osteoarthritis is mild but the DIP joint, the PIP joint is intact, no acute osseous injury. Pt was seen by orthopedic surgeon, Dr. Cruz and Nicolas Cantrell PA-C at bedside. They recommend placing pt in flexed splint and to call orthopedics for appt with Dr. Meraz. Will hold off on ABX at this time as does not appear to be flexor tenosynovitis or infectious process. Discussed return precuations with patient. Pt understands and agrees with plan. Stable for d/c. Time: 12:05 Medical Decision Making Medical Decision Making [facility] Narrative: 72-year-old male presenting to the emergency department for evaluation of right 4th finger pain x2 weeks. On arrival, vital signs within normal limits. Examination findings concerning for trigger finger versus flexor tenosynovitis versus gouty arthritis versus cellulitis. Plan: Labs, x-ray Differential Diagnosis Differential Diagnoses: The differential diagnosis associated with the presentation includes See above Admission/Observation Consideration of admission/observation: Escalation of care including admission/observation considered Escalation of care was considered given decreased range of motion of the Lab Data [facility] Lab Attestation statement: I reviewed the patient's lab results. No leukocytosis, stable H&H, chemistry nondiagnostic. CRP within normal limits with the, uric acid within normal limits. 07/19/23 11:05 07/19/23 11:05 Labs: Lab Results 07/19/23 07/19/23 07/19/23 Range/Units 11:05 11:05 11:05 WBC 8.7 (4.8-10.8) X10*3/uL RBC 4.68 (4.60-5.80) X10*6/uL Hgb 15.7 (14.0-18.0) g/dl Hct 45.9 (42.0-52.0) % MCV 98.1 H (80.0-98.0) fL MCH 33.5 H (27.0-33.0) pg MCHC 34.2 (31.0-36.0) g/dl RDW 13.2 (11.0-16.0) % Plt Count 182 (160-400) X10*3/uL MPV 9.6 (9.4-12.4) fL Immature Gran % (Auto) 0.6 H (0.0-0.4) % Neut % (Auto) 60.2 (45-73) % Lymph % (Auto) 31.0 (20-40) % [place] % (Auto) 6.8 (2-11) % Eos % (Auto) 0.9 (0-4) % Baso % (Auto) 0.5 (0-2) % Lymph # (Auto) 2.7 (1.2-4.9) X10*3/uL [place] # (Auto) 0.6 (0.1-1.2) X10*3/uL Eos # (Auto) 0.1 (0.0-0.4) X10*3/uL Baso # (Auto) 0.0 (0.0-0.2) X10*3/uL Abs Immat Gran (auto) 0.05 H (0.00-0.03) X10*3/uL Absolute Neuts (auto) 5.2 (2.0-8.3) x10*3/uL Absolute Nucleated RBC 0.000 (0.0-0.012) X10*3/uL Nucleated RBC % (auto) 0.0 (0.0-0.2) /100WBC ESR 2 (0-15) MM/HR Sodium 141 (135-145) mmol/L Potassium 4.5 (3.3-5.1) mmol/L Chloride 108 (96-108) mmol/L Carbon Dioxide 28 (22-29) mmol/L Anion Gap 10 L (12-20) BUN 10 (9-16) mg/dL Creatinine 0.81 (0.5-1.4) mg/dL Estim Creat Clear Calc 85.1 Estimated GFR > 60 Random Glucose 83 (60-115) mg/dL Uric Acid 4.8 (3.4-7.0) mg/dL Calcium 8.9 (8.4-10.2) mg/dL Total Bilirubin 0.5 (0.0-1.0) mg/dL Direct Bilirubin 0.2 (0.0-0.5) mg/dL AST 29 (5-37) U/L ALT 32 (0-40) U/L Alkaline Phosphatase 66 (39-117) U/L C-Reactive Protein < 0.10 (< or = 0.50) mg/dL Total Protein 6.0 L (6.5-8.0) g/dL Albumin 3.6 (3.5-5.0) g/dL Radiology Impression Discussion of test interpretation with radiology: I have reviewed the radiologist's reading. Radiologist Impression: EXAMINATION: XR FINGER, RIGHT CLINICAL INFORMATION: Fourth digit pain.? COMPARISON: None available.? TECHNIQUE: 3 views of the right fourth digit. FINDINGS: Mild osteoarthritis of the first carpometacarpal joint as well as 1st, 2nd and 3rd MCP joints (where there is narrowing of joint space, small osteophytes and/or subchondral cysts). Degenerative narrowing of joint space and osteophyte formation at multiple interphalangeal joints, worse at the 2nd and 3rd DIP joints. Mild degenerative subluxations at 2nd and 3rd DIP joints. Findings include small osteophytes of mildly degenerated 4th DIP joint. There is mild flexion of the 4th PIP joint. No erosions or periostitis. No acute fracture. XR/XR finger RT min 2V IMPRESSION: *? 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 ? *? Within the fourth digit, the osteoarthritis is mild at the DIP joint. The PIP joint is intact.? No acute osseous injury. Dictated By: Ronak Corona MD Procedures Orthopedic Splinting/Casting Injury #1: Side: right Upper Extremity Injury Location: finger Upper Extremity Immobilizer: aluminum form splint and finger (other) Discharge Plan Discharge Clinical Impression: Finger pain, right Patient Disposition: Home, Self-Care Instructions: Arthralgia (ED) Additional Instructions: Your x-rays show some arthritis. Please wear splint, and call orthopedic office for follow-up. Call today to make an appointment. You may take ibuprofen and Tylenol as needed. Rest, ice, elevate your finger. You may take ibuprofen as needed pain symptoms. If any new or worsening symptoms occur including evaluated to worsening redness, swelling Prescriptions: No Action amlodipine 5 mg tablet 5 mg PO DAILY Qty: 90 2RF atorvastatin 10 mg tablet 10 mg PO DAILY Qty: 90 1RF losartan 25 mg tablet 25 mg PO DAILY 90 Days Qty: 90 3RF folic acid 1 mg tablet 1 mg PO DAILY Qty: 90 1RF rivaroxaban 10 mg Tablet 10 mg PO DAILY Qty: 10 3RF Rx Instructions: To take an hour before travel. Same thing for the return flight. alprazolam 0.5 mg tablet 0.25 mg PO DAILY PRN (Reason: acute anxiety attacks ) Qty: 20 0RF allopurinol 300 mg tablet 300 mg PO DAILY Qty: 90 1RF escitalopram oxalate 20 mg tablet 20 mg PO DAILY Qty: 90 1RF prednisone 20 mg tablet 40 mg PO DAILY 5 Days Qty: 10 0RF cephalexin 500 mg capsule 500 mg PO QID 7 Days Qty: 28 0RF cholecalciferol (vitamin D3) 50 mcg (2,000 unit) capsule 50 mcg PO DAILY Qty: 90 0RF Citrucel 500 mg tablet 500 mg PO DAILY Qty: 30 2RF magnesium oxide 400 mg magnesium tablet 400 mg PO BEDTIME Qty: 90 2RF sucralfate 1 gram tablet 1 g PO BEDTIME Qty: 90 1RF Hold Instructions: Doctor's Order omeprazole 20 mg capsule,delayed release(DR/EC) 20 mg PO .COMPLEX Qty: 30 3RF Rx Instructions: 20 mg orally Take Tuesday, Tuesday, Tuesday; Interventions: ED Discharge Assessment Last Done: 07/19/23 12:44 Discharge Date/Time: 07/19/23 12:44
[2023-07-19 11:37] LABS: Alanine Aminotransferase 32 U/L (0-40); Albumin Level 3.6 g/dL (3.5-5.0); Alkaline Phosphatase 66 U/L (39-117); Anion Gap 10 (12-20); Aspartate Amino Transferase 29 U/L (5-37); Bilirubin Direct 0.2 mg/dL (0.0-0.5); Bilirubin Total 0.5 mg/dL (0.0-1.0); Blood Urea Nitrogen 10 mg/dL (9-16); C Reactive Protein < 0.10 mg/dL (< or = 0.50); Calcium 8.9 mg/dL (8.4-10.2); Carbon Dioxide 28 mmol/L (22-29); Chloride 108 mmol/L (96-108); Creatinine Clr Calc Pharmacy 85.1; Estimated Glomerular Filt Rate > 60; Glucose Random 83 mg/dL (60-115); Potassium 4.5 mmol/L (3.3-5.1); Sodium 141 mmol/L (135-145); Uric Acid 4.8 mg/dL (3.4-7.0)
[2023-07-19 11:53] LABS: Erythrocyte Sedimentation Rate 2 MM/HR (0-15)
--- NOTE | 2023-07-19 12:37 | MHC.EDTECH ---
This tech wrapped and splint pt's 4th finger on the right hand.
--- NOTE | 2023-07-20 09:56 | P.CONOP_ITS ---
History of Present Illness HPI Consult date: 07/19/23 Requesting physician: Alcira Damico Chief complaint: infected finger r hand Narrative: This is a 72 yo M with a ~ 2 wk history of right ring finger pain. He denies injury. He was seen in walk in clinic one week ago. His primary complaint is pain. He was treated with a Medrol dose pack and has a history of gout. [facility] Past Medical History Medical History Alcohol use disorder Anxiety Chronic deep vein thrombosis (DVT) of distal vein of right lower extremity Chronic gastroesophageal reflux disease Gout H/O irritable bowel syndrome Hepatic encephalopathy History of hepatitis B HTN (hypertension) Hyperammonemia Impaired fasting glucose Insomnia Lower leg DVT (deep venous thromboembolism), acute Mixed dyslipidemia Obesity (BMI 30.0-34.9) Pain in joint, foot, left Thiamine deficiency Varicose vein of leg Vitamin D deficiency Family History Family History Mother Varicose vein of leg Father No problems noted. Brother No problems noted. Brother No problems noted. Son No problems noted. Son No problems noted. Surgical History Surgical History H/O varicose vein stripping History of esophagogastroduodenoscopy (EGD) Hx of colonoscopy S/P lumbar microdiscectomy Status post rotator cuff surgery Social History Social History Household Members: Spouse Housing: House Are you a primary memory care program resident to a significant other at home: No Do you presently have visiting nurse or other home services: No Alcohol intake: former Patient Tobacco Use Status: Never used Tobacco Tobacco use type: Cigar e-Cigarette/Vaping Use: Never Used Advance Directives: Yes Advance Directives Information Provided: No Advance Directives on File: No Current occupational status: retired Cognitive needs: No Hearing needs: No Vision needs: Yes Meds Allergies Allergy/AdvReac Type Severity Reaction Status Date / Time No Known Allergies Allergy Verified 07/12/23 10:24 [No Known Allergies*] Physical Exam Vital Signs: Vital Signs: Last Vital Signs Temp 97.8 F 07/19/23 10:06 Pulse 53 07/19/23 10:06 Resp 18 07/19/23 10:06 BP 131/76 07/19/23 10:06 Pulse Ox 100 07/19/23 10:06 O2 Del Method Room Air 07/19/23 10:06 BMI result Body Mass Index 27.3 Extrem: Other: Right RF with ttp over the PIP with intact FDP/FDS and mild STS. Mild flexion and 1 cm loss of composite fist. Mild TTP along A1 kuldeep Results Labs 07/19/23 11:05 07/19/23 11:05 Labs: Abnormal lab results 07/19/23 07/19/23 Range/Units 11:05 11:05 MCV 98.1 H (80.0-98.0) fL MCH 33.5 H (27.0-33.0) pg Immature Gran % (Auto) 0.6 H (0.0-0.4) % Abs Immat Gran (auto) 0.05 H (0.00-0.03) X10*3/uL Anion Gap 10 L (12-20) Total Protein 6.0 L (6.5-8.0) g/dL H & H 07/19/23 Range/Units 11:05 Hgb 15.7 (14.0-18.0) g/dl Hct 45.9 (42.0-52.0) % All other labs normal. Assessment and Plan (1) Finger pain, right: Status: Inactive Plan Diabetic with painful DIP for 2 weeeks. No erythema. Mild pain with passive stretch but swelling is not present. No acute intervention warranted. If worsens will follow up in hand clinic. Time Spent With Patient Time: Total time managing care of this patient today ____ minutes. Procedures Date of Service Date of Service: 07/20/23
== END 2023-07-19 12:44 | disposition home or self-care (01) ==
PROVIDERS: Physician Assistant Medical; Emergency Provider Emergency Medicine; PCP Internal Medicine
DX: S60.414A Abrasion of right ring finger, initial encounter (principal); L08.9 Local infection of the skin and subcutaneous tissue, unspecified; M25.441 Effusion, right hand; W26.9XXA Contact with unspecified sharp object(s), initial encounter; Y93.9 Activity, unspecified; Y92.9 Unspecified place or not applicable; Y99.9 Unspecified external cause status; Z79.899 Other long term (current) drug therapy
CPT/HCPCS: 29130; 36415; 73140; 80048; 80076; 84550; 85025; 85652; 86140; 99283

== ENCOUNTER → 2023-07-19 10:21 | Outpatient (BNV) | payer MEDICARE, OTHER, SELFPAY | PROVIDERS: Emergency Provider Emergency Medicine; PCP Internal Medicine; Visit Provider Orthopaedic Surgery | DX: M79.644 Pain in right finger(s) (principal) | CPT/HCPCS: 99283 ==

== ENCOUNTER 2023-10-03 13:06 | Outpatient (REF) | payer MEDICARE, OTHER, SELFPAY ==
[2023-10-03 16:50] LABS: Alanine Aminotransferase 16 U/L (0-40); Albumin Level 3.8 g/dL (3.5-5.0); Alkaline Phosphatase 69 U/L (39-117); Aspartate Amino Transferase 20 U/L (5-37); Bilirubin Direct 0.2 mg/dL (0.0-0.5); Bilirubin Total 0.5 mg/dL (0.0-1.0); Total Protein 6.2 g/dL (6.5-8.0)
== END 2023-10-03 13:07 | disposition home or self-care (01) ==
LOC: HO.HMGCLDS 13:06
PROVIDERS: PCP Internal Medicine; Visit Provider Podiatrist
DX: B35.1 Tinea unguium (principal)
CPT/HCPCS: 36415; 80076

== ENCOUNTER 2023-10-24 08:16 | Outpatient (REF) | payer MEDICARE, OTHER, SELFPAY ==
[2023-10-24 08:34] LABS: MANUAL DIFF FLAG NO
[2023-10-24 10:03] LABS: Basophils Percent Auto 0.5 % (0-2); Eosinophils Absolute Auto 0.1 X10*3/uL (0.0-0.4); Eosinophils Percent Auto 1.7 % (0-4); Hematocrit 42.8 % (42.0-52.0); Hemoglobin 14.3 g/dl (14.0-18.0); Imm Gran Abs Auto 0.01 X10*3/uL (0.00-0.03); Imm Gran Pct Auto 0.1 % (0.0-0.4); Lymphocytes Absolute Auto 2.7 X10*3/uL (1.2-4.9); Lymphocytes Percent Auto 33.3 % (20-40); Mean Corpuscular HGB Conc 33.4 g/dl (31.0-36.0); Mean Corpuscular Volume 98.8 fL (80.0-98.0); Mean Platelet Volume 10.6 fL (9.4-12.4); Monocytes Absolute Auto 0.7 X10*3/uL (0.1-1.2); Monocytes Percent Auto 8.2 % (2-11); Neutrophils Absolute Auto 4.5 x10*3/uL (2.0-8.3); Neutrophils Percent Auto 56.2 % (45-73); Platelet Count 176 X10*3/uL (160-400); Red Blood Count 4.33 X10*6/uL (4.60-5.80); Red Cell Distribution Width 12.6 % (11.0-16.0)
[2023-10-24 11:10] LABS: Vitamin D 25-OH Total 30.8 ng/mL (>30)
[2023-10-24 11:16] LABS: Alanine Aminotransferase 21 U/L (0-40); Anion Gap 13 (12-20); Aspartate Amino Transferase 27 U/L (5-37); Blood Urea Nitrogen 16 mg/dL (9-16); Calcium 8.8 mg/dL (8.4-10.2); Carbon Dioxide 27 mmol/L (22-29); Chloride 105 mmol/L (96-108); Cholesterol 138 mg/dL (<200); Estimated Glomerular Filt Rate > 60; Glucose Fasting 85 mg/dL (60-99); HDL Cholesterol 57 mg/dL (>40); LDL Cholesterol Calculated 46 mg/dL (<100); Magnesium 1.4 mg/dL (1.6-2.6); Potassium 3.9 mmol/L (3.3-5.1); Sodium 141 mmol/L (135-145); Triglycerides 177 mg/dL (<150)
== END 2023-10-24 08:17 | disposition home or self-care (01) ==
LOC: HO.LAB 08:16
PROVIDERS: PCP Internal Medicine; Visit Provider Internal Medicine
DX: K58.9 Irritable bowel syndrome, unspecified (principal); E78.2 Mixed hyperlipidemia; I10 Essential (primary) hypertension; R73.01 Impaired fasting glucose; E66.9 Obesity, unspecified; E55.9 Vitamin D deficiency, unspecified; K21.9 Gastro-esophageal reflux disease without esophagitis; R12 Heartburn; K59.1 Functional diarrhea
CPT/HCPCS: 36415; 80048; 80061; 82306; 83735; 84450; 84460; 85025; 99212

== ENCOUNTER 2023-10-24 08:41 | Outpatient (AMB) | payer MEDICARE, OTHER, SELFPAY ==
--- NOTE | 2023-10-24 09:33 | MHC.OFFVIS ---
Intake Vital Signs 10/24/23 09:35 Height 5 ft 10 in Weight 190 lb 7.67 oz BMI 27.3 BP 119/79 Blood Pressure Location Lt brachial Position Sitting Pulse 60 Intake Visit Reasons: 6 mnth follow up Intake Note: Kelvin presents today in 6 months follow up of IBS and GERD. CC: Patient reports that he continues to have loose stools. Denies any new GI concerns or problems. He continues to take Sucralfate at bedtime, and would like to know if he needs to continue taking. Technical Maintenance Specialist Required: No Accompanied by: Self / Same As Patient Allergies No Known Allergies [No Known Allergies*] Allergy (Verified 10/24/23 12:34) HPI 6 mnth follow up HPI Details LAST VISIT Chronic gastroesophageal reflux disease Continue avoiding dietary triggers a late night snacking. Staying upright for minimum 3 hours after meals discussed with patient. Heartburn Patient reports occasional heartburn only when he is something spicy. Patient can use omeprazole on as needed basis. Hypomagnesemia Patient's level normalized. Patient can take magnesium once a day at night time IBS (irritable bowel syndrome) Occasional loose stools, however now that patient start taking Citrucel his bowels are moving better. Reports to be more solid. Continue Citrucel once a day. May increase to 2 times a day if needs to. Continue avoiding dietary triggers. Low FODMAP diet encouraged Diarrhea Continue Citrucel. Monitor diet. Possible that diarrhea was from magnesium replacement. Change the dosing and patient can take it at bedtime. Most likely not due to malabsorption as his vitamin levels were normal. Avoid lactose. Low FODMAP diet discussed with patient. I will see patient in 6 months, sooner on as needed basis. Patient is agreeable to this plan and verbalizes understanding of instructions. He was given the opportunity to ask questions and all questions answered. ? Thank you for allowing me to participate in his care Plan Medications Changed From magnesium oxide 400 mg PO BID To magnesium oxide 400 mg PO BEDTIME 90 tabs 2RF Discontinued thiamine HCl (vitamin B1) Discontinued Reason: Patient no longer taking 100 mg PO DAILY 90 tabs 0RF famotidine Discontinued Reason: Doctor's Order 40 mg PO DAILY 90 tabs 3RF K21.9 - Gastro-esophageal reflux disease without esophagitis TODAY'S VISIT Patient is here today for follow-up. Patient reports that he has been feeling better. His symptoms of acid reflux are suppressed. Only uses omeprazole on as needed basis. Patient still is taking sucralfate at bedtime. Denies any nausea or vomiting. Reports that his bowels are moving without any issues. Currently taking magnesium oxide at bedtime only. Patient denies any dyspepsia, dysphagia or odynophagia. Denies any melena, hematochezia, unintentional weight loss or ribbon like stools. Patient states that he is due for colonoscopy. Last colonoscopy was done by Dr. Garcia in 2019 in November. Recommendation was for patient to repeat colonoscopy in 5 years. He will be due to go for colonoscopy after November of 2023. [facility] Medical History Thiamine deficiency Vitamin D deficiency Chronic gastroesophageal reflux disease Obesity (BMI 30.0-34.9) Hepatic encephalopathy Alcohol use disorder Hyperammonemia Chronic deep vein thrombosis (DVT) of distal vein of right lower extremity History of hepatitis B Varicose vein of leg Pain in joint, foot, left Lower leg DVT (deep venous thromboembolism), acute H/O irritable bowel syndrome Insomnia Anxiety Mixed dyslipidemia HTN (hypertension) Gout Impaired fasting glucose Surgical History History of esophagogastroduodenoscopy (EGD) H/O varicose vein stripping Hx of colonoscopy Status post rotator cuff surgery S/P lumbar microdiscectomy Family History Mother Varicose vein of leg Father No problems noted. Brother No problems noted. Brother No problems noted. Son No problems noted. Son No problems noted. Social History Household Members: Spouse Housing: House Are you a primary senior resident care director to a significant other at home: No Do you presently have visiting nurse or other home services: No Alcohol intake: former Patient Tobacco Use Status: Never used Tobacco Tobacco use type: Cigar e-Cigarette/Vaping Use: Never Used Current occupational status: retired Cognitive needs: No Hearing needs: No Vision needs: Yes Review of Systems Const Denies weight gain and Denies weight loss ENT Reports no additional complaints, Denies dysphagia and Denies odynophagia Card Reports no additional complaints Resp Reports no additional complaints GI Denies abdominal pain, Denies belching, Denies melena, Denies bloating, Denies change in bowel habits, Denies dysphagia, Denies excessive flatus, Denies dyspepsia, Denies heartburn, Denies diarrhea, Denies loose stools, Denies nausea, Denies odynophagia and Denies vomiting Reports no additional complaints Musc Reports no additional complaints Neuro Reports no additional complaints Psych Reports no additional complaints Endo Reports no additional complaints Physical Exam Vital Signs: Last Vital Signs Pulse 60 10/24/23 09:35 BP 119/79 10/24/23 09:35 BMI result Body Mass Index 27.3 Const General: healthy appearing, no acute distress and well developed Nutritional Appearance: well nourished Orientation/consciousness: patient oriented x3 HEENT Head: Yes normal to inspection, Yes normocephalic and Yes atraumatic Face and sinus: Yes normal facial exam Mouth: Normal oral and palatal mucosa present Throat: Yes posterior oropharynx normal, Yes tonsils normal and Yes uvula midline Eyes General: appearance normal, both eyes and all related structures Neck Neck: Yes normal visual inspection, Yes full ROM and Yes trachea midline Thyroid: Thyroid normal Resp Effort & Inspection: normal respiratory effort, able to speak in complete sentences, no tracheal deviation and symmetric chest movement Auscultation: clear to auscultation bilaterally Cardio Rate: regular rate GI Inspection: Yes normal to inspection and No distended Palpation (GI): Soft to palpation, not firm, nontender and No hepatosplenomegaly present Auscultation: normal bowel sounds General: Yes no CVA tenderness Back/Spine/Pelvis Back: no CVA tenderness Skin General skin exam: elasticity normal, turgor normal and dry skin Neuro General: patient oriented x3 Psych Appearance: grossly normal Mental Status: mental status grossly normal Affect: normal affect Assessment & Plan Assessment & Plan (1) Chronic gastroesophageal reflux disease: Code(s): K21.9 - Gastro-esophageal reflux disease without esophagitis (2) Heartburn: Code(s): R12 - Heartburn (3) Hypomagnesemia: Code(s): E83.42 - Hypomagnesemia (4) IBS (irritable bowel syndrome): Code(s): K58.9 - Irritable bowel syndrome without diarrhea Qualifiers: Irritable bowel syndrome type: without diarrhea Qualified Code(s): K58.9 - Irritable bowel syndrome without diarrhea (5) Diarrhea: Code(s): R19.7 - Diarrhea, unspecified Qualifiers: Diarrhea type: functional diarrhea Qualified Code(s): K59.1 - Functional diarrhea Plan Continue fiber and high-fiber diet. Avoid dietary triggers. Continue omeprazole on as needed basis. Patient can stop taking sucralfate. Continue following low FODMAP diet. I will see patient in 2 months to discuss going for colonoscopy. Patient is agreeable to this plan and verbalizes understanding of instructions. He was given the opportunity to ask questions all questions answered. Thank you for allowing me to participate in his care Coding Level of Care Code Est Pt Level 3 (75306) Diagnoses Chronic gastroesophageal reflux disease K21.9 Heartburn R12 Hypomagnesemia E83.42 Irritable bowel syndrome without diarrhea K58.9 Irritable bowel syndrome type: without diarrhea Functional diarrhea K59.1 Diarrhea type: functional diarrhea Time Spent (min) 25 Comment 15 minutes spent with patient and additional 10 minutes spent reviewing his records
[2023-10-24 09:35] VITALS: BP 119/79; PULSE 60; BMI 27.3
== END 2023-10-24 11:11 | disposition home or self-care (01) ==
PROVIDERS: PCP Internal Medicine; Visit Provider Nurse Practitioner Family
DX: K21.9 Gastro-esophageal reflux disease without esophagitis (principal); R12 Heartburn; E83.42 Hypomagnesemia; K58.9 Irritable bowel syndrome, unspecified; K59.1 Functional diarrhea
CPT/HCPCS: 99213

== ENCOUNTER 2023-10-24 10:55 | Outpatient (AMB) | payer MEDICARE, OTHER, SELFPAY ==
[2023-10-24 11:46] VITALS: BP 122/70; PULSE 61; O2SAT 97; BMI 27.3
--- NOTE | 2023-10-24 11:46 | A.OFFPC_ITS ---
Vital Signs 10/24/23 11:46 Height 5 ft 10 in Weight 190 lb 4 oz BMI 27.3 BP 122/70 Blood Pressure Location Lt brachial Position Sitting Pulse 61 Pulse Source Pulse Oximeter Pulse Oximetry (%) 97 Oxygen Delivery Method Room Air Intake Visit Reasons: 6m follow up Intake Note: Pt is here to follow up for his lab results Allergies No Known Allergies [No Known Allergies*] Allergy (Verified 10/24/23 12:34) Medication List - Last Reconciled 10/24/23 by Luiza Johnson MD allopurinol 300 mg PO DAILY alprazolam 0.25 mg (1/2 x 0.5 mg) PO DAILY PRN amlodipine 5 mg PO DAILY atorvastatin 10 mg PO DAILY escitalopram oxalate 20 mg PO DAILY folic acid 1 mg PO DAILY losartan 25 mg PO DAILY 90 days magnesium oxide 400 mg PO BEDTIME methylcellulose (laxative) (Citrucel) 500 mg PO DAILY omeprazole 20 mg orally Take Tuesday, Tuesday, Tuesday; rivaroxaban 10 mg PO DAILY PRN sucralfate 1 g PO BEDTIME Tobacco use date assessed: 10/24/23 Fall risk assessment: No Falls in past year Last assessed Fall Risk: 10/24/23 Dental Screening Dental Screen Date: 10/24/23 Did you have a dental visit in the last 12 months?: Yes Did you have a dental problem in the last 6 months where you did not have access to dental care?: No Was dental information given to patient?: Patient has dentist HPI 6m follow up HPI Details Male with hypertension, hyperlipidemia, hypo magnesemia, generalized anxiety disorder, and prediabetes, here today for follow-up. He has been feeling well, with no complaints at present time, compliant with taking his medications. FORMERLY [facility], [facility] Medical History Thiamine deficiency Vitamin D deficiency Chronic gastroesophageal reflux disease Obesity (BMI 30.0-34.9) Hepatic encephalopathy Alcohol use disorder Hyperammonemia Chronic deep vein thrombosis (DVT) of distal vein of right lower extremity History of hepatitis B Varicose vein of leg Pain in joint, foot, left Lower leg DVT (deep venous thromboembolism), acute H/O irritable bowel syndrome Insomnia Anxiety Mixed dyslipidemia HTN (hypertension) Gout Impaired fasting glucose Surgical History History of esophagogastroduodenoscopy (EGD) H/O varicose vein stripping Hx of colonoscopy Status post rotator cuff surgery S/P lumbar microdiscectomy Family History Mother Varicose vein of leg Father No problems noted. Brother No problems noted. Brother No problems noted. Son No problems noted. Son No problems noted. Social History Household Members: Spouse Housing: House Are you a primary healthcare administrator to a significant other at home: No Do you presently have visiting nurse or other home services: No Alcohol intake: former Patient Tobacco Use Status: Never used Tobacco Tobacco use type: Cigar e-Cigarette/Vaping Use: Never Used Current occupational status: retired Cognitive needs: No Hearing needs: No Vision needs: Yes Questionnaire PHQ-9 Over the last 2 weeks, how often have you been bothered by any of the following problems? 1. Little interest or pleasure in doing things: not at all 2. Feeling down, depressed, or hopeless: not at all 3. Trouble falling or staying asleep, or sleeping too much: not at all 4. Feeling tired or having little energy: not at all 5. Poor appetite or overeating: not at all 6. Feeling bad about yourself - or that you are a failure or have let yourself or your family down: not at all 7. Trouble concentrating on things, such as reading the newspaper or watching television: not at all 8. Moving or speaking so slowly that other people could have noticed. Or the opposite - being so fidgety or restless that you have been moving around a lot more than usual: not at all 9. Thoughts that you would be better off or of hurting yourself in some way: not at all Total score: 0 Depression Screening Interpretation: Negative Depression Screening Done: Yes 94951 - PHQ-9 Billing: Yes Source: Developed by Drs. Max Pollard, Siobhan Diop, Steven Mirza and colleagues, with an educational winsome from [employer]. Thrive Questionnaire Date Thrive assessed: 10/24/23 I am a: Patient What is your living situation today?: I have a steady place to live Within the past 12 months, did the food you bought not last and you didn't have the money to get more?: Never true Within the past 12 months, did you worry whether your food would run out before you got money to buy more?: Never true Do you have trouble paying for medicines?: No Do you have trouble getting transportation to medical appointments?: No Do you have trouble paying your heating and electricity bill?: No Do you have trouble taking care of your child, family member or friend?: No Do you have trouble with day-to-day activities such as bathing, preparing meals, shopping, managing finances, etc.?: No Are you currently unemployed and looking for a job?: No Are you interested in more education?: No AUDIT C Alcohol Use Questionnaire (AUDIT-C) 1. How often do you have a drink containing alcohol?: Never (Stopped drinking several months ago) Total Score: 0 MARY-7 AMB Questionnaire MARY-7 Date MARY - 7 assessed: 10/24/23 Feeling nervous, anxious, or on edge: 1 = Several days Not being able to stop or control worryin = Not at all Worrying too much about different things: 1 = Several days Trouble relaxin = Not at all Being so restless that it is hard to sit still: 0 = Not at all Becoming easily annoyed or irritable: 0 = Not at all Feeling afraid as if something awful might happen: 0 = Not at all Total MARY-7 score (0-4 normal; 5-9 mild; 10-14 moderate; 15-21 severe): 2 Source: Developed by Drs. Max Pollard, Siobhan Diop, Steven Mirza and colleagues, with an educational winsome from [employer]. MARY-7 Assessment Billing MARY-7 Assessment Tool: MARY-7 Assessment 69584 Review of Systems Const Denies weight gain and Denies weight loss ENT Reports no additional complaints Card Reports no additional complaints Resp Reports no additional complaints GI Denies abdominal pain, Denies melena, Denies bloating, Denies change in bowel habits, Denies heartburn and Denies nausea Reports no additional complaints Musc Reports no additional complaints Neuro Reports no additional complaints and Denies Sensory deficit (Neuro) Psych Reports no additional complaints Endo Reports no additional complaints Physical exam (Primary Care) Vital Signs: Last Vital Signs Pulse 61 10/24/23 11:46 BP 122/70 10/24/23 11:46 Pulse Ox 97 10/24/23 11:46 Oxygen Delivery Method Room Air 10/24/23 11:46 BMI result Body Mass Index 27.3 Tobacco/Smoking Status: Tobacco use Status Tobacco use date assessed 10/24/23 10/24/23 11:54 Patient Tobacco Use Status Never used Tobacco 10/24/23 11:47 Tobacco use type Cigar 10/24/23 11:47 e-Cigarette/Vaping Use Never Used 10/24/23 11:47 Depression Screening Interpretation: Negative Thrive Assessment: Date of Thrive Assessment Date Thrive assessed 04/21/22 10/24/23 11:47 Const General: cooperative, no acute distress and alert Orientation/consciousness: patient oriented x3 HENMT Face and sinus: Yes face symmetric Mouth: Normal oral and palatal mucosa present and moist mucous membranes Eyes General: appearance normal, both eyes and all related structures Neck Neck: Yes full ROM, Yes no lymphadenopathy and Yes supple Resp Effort & Inspection: normal respiratory effort and able to speak in complete sentences Auscultation: clear to auscultation bilaterally Cardio Rate: regular rate Rhythm: regular rhythm Heart sounds: S1 normal heart sound present and S2 normal heart sound present GI Inspection: Yes normal to inspection Palpation (GI): Soft to palpation, nontender, no guarding and no masses Auscultation: normal bowel sounds Neuro General: patient oriented x3, gait normal, tone normal, moves all extremities, n o focal motor deficits and CN's II-XI intact bilaterally Cognition (Neuro): normal cognition Gait exam (Neuro): Normal gait present Motor exam (neuro): 5/5 motor strength present throughout Sensory Exam: No Sensory deficit (Neuro) Extrem General: Yes normal to inspection and Yes no joint enlargement Psych Appearance: grossly normal and well kempt Mental Status: mental status grossly normal Speech and movement: Normal speech and movement present Affect: normal affect Results Reviewed Results Reviewed: Laboratory Tests l 10/24/23 08:33 WBC 8.0 Hgb 14.3 Hct 42.8 MCV 98.8 H MCH 33.0 RDW 12.6 Plt Count 176 Name: Kelvin Chauhan Hunter Age/Sex: 72/M : 1950 Unit#: [id number] Attend Dr: Luiza Johnson MD Re10/24/23 Status: DEP REF Location: .LAB Disch: SPEC : [id number] GEORGE: 10/24/23 STATUS: COMP REQ : [id number] RECD: 10/24/[address]: Luiza Johnson MD COMP: 10/24/23 ENTERED: 10/24/[address] [facility] DR: ORDERED: Met Prof Fast, MG, AST, ALT, Lipid Panel, Vitamin D 25-OH Test Result Flag Reference Sodium 141 135-145 mmol/L Potassium 3.9 3.3-5.1 mmol/L CL 105 96-108 mmol/L CO2 27 22-29 mmol/L Gap 13 12-20 BUN 16 9-16 mg/dL Creat 0.83 0.5-1.4 mg/dL EGFR > 60 NOTE: For -Prydeinig individuals, multiply the result by 1.210. Chronic Kidney Disease: Estimated GFR < 60 mL/min/1.73m2 Severe Kidney Disease: Estimated GFR < 15 mL/min/1.73m2 FBS 85 60-99 mg/dL CA 8.8 8.4-10.2 mg/dL Magnesium 1.4 *L 1.6-2.6 mg/dL Critical value for MAG: Results called to and read back by: EZEQUIEL Olson Person calling: JADA Date: 10/24/23 Time: 1115 AST (GOT) 27 5-37 U/L ALT (GPT) 21 0-40 U/L Triglyceride 177 H <150 mg/dL Desirable Triglyceride: less than 150 mg/dL Borderline High Triglyceride 150-199 mg/dL High Triglyceride: 200-499 mg/dL Very High Triglyceride: greater than or equal to 5OO mg/dL Cholesterol 138 <200 mg/dL Desirable Cholesterol: less than 200 mg/dL Borderline High Cholesterol: 200-239 mg/dL High Cholesterol: greater than 239 mg/dL LDL Calculated 46 <100 mg/dL Desirable LDL: less than 100 mg/dL Near Optimal/Above Optimal LDL: 110-129 mg/dL Borderline High LDL: 130-159 mg/dL High LDL: 160-189 mg/dL Very High LDL: greater than or equal to 190 mg/dL HDL 57 >40 mg/dL Desirable HDL: greater than 40 mg/dL Note: This HDL assay may give artificially low results in patients with liver disease. Vit D 25-OH Tot 30.8 L >30 ng/mL Health Based Reference Values* < 20 ng/mL Deficient 20-30 ng/mL Insufficient > 30 ng/mL Sufficient Assessment and Plan Assessment & Plan (1) Mixed dyslipidemia: Code(s): E78.2 - Mixed hyperlipidemia Plan: Reviewed recent fasting lipid profile with patient with levels within normal limits . Continue with atorvastatin 10 mg daily , in addition to adherence to low-cholesterol diet and regular exercise, at least 30 minutes 3 to 4 times a week. Advised patient to make healthy food choices, eat more fruits, vegetables, whole grains, wild caught fish and low-fat dairy. Limit amount of meat and fried or fatty food products, as well as processed foods and fast foods. Follow-up scheduled with repeat fasting lipid panel in 3 months. (2) HTN (hypertension): Code(s): I10 - Essential (primary) hypertension Qualifiers: Hypertension type: primary hypertension Qualified Code(s): I10 - Essential (primary) hypertension Plan: Blood pressure at goal of less than 130/80. Continue with losartan 25 mg daily and amlodipine 5 mg daily. Reinforced importance of following a low sodium diet, getting regular exercise, and lowering stress levels. (3) Impaired fasting glucose: Code(s): R73.01 - Impaired fasting glucose Plan: Your fasting blood sugars days within normal limit , previously find the past. Impaired glucose metabolism O2 at risk for developing diabetes mellitus type 2, as well as heart attack and stroke later on. Lifestyle changes at just weight loss, healthy eating habits, and regular exercise are important, and can prevent the progression to diabetes (4) Hypomagnesemia: Code(s): E83.42 - Hypomagnesemia Plan: Improving serum magnesium levels with no complaints of leg cramps or weakness. Continue magnesium oxide 400 mg daily. Strict avoidance of alcohol pain for, take omeprazole only as needed heartburn (5) Anxiety: Code(s): F41.9 - Anxiety disorder, unspecified Plan: Stable controlled on escitalopram continue at 20 mg daily, and alprazolam 0.25 mg 1 tablet as needed for acute for acute anxiety attacks. Discussed symptoms of anxiety, , discussed use and side effects of medication, Pt instructed to take medicines exactly as directed and that these medications can be habit forming. Will refer to counseling. Discussed other ways to relieve stress including : exercise or a massage, Get enough rest, Avoid alcohol, caffeine, nicotine, and illegal drugs which can increase your anxiety level and cause sleep problems. Orders: Orders PSA,Total (Free>4and<10) 01/16/24 Z12.5 - Encounter for screening for malignant neoplasm of prostate Alanine Aminotransferase 01/16/24 E66.9 - Obesity, unspecified, E78.2 - Mixed hyperlipidemia, I10 - Essential (primary) hypertension, R73.01 - Impaired fasting glucose, E83.42 - Hypomagnesemia Magnesium 01/16/24 E66.9 - Obesity, unspecified, E78.2 - Mixed hyperlipidemia, I10 - Essential (primary) hypertension, R73.01 - Impaired fasting glucose, E8 3.42 - Hypomagnesemia Aspartate Amino Transferase 01/16/24 E66.9 - Obesity, unspecified, E78.2 - Mixed hyperlipidemia, I10 - Essential (primary) hypertension, R73.01 - Impaired fasting glucose, E83.42 - Hypomagnesemia Basic Metabolic Panel Fasting 01/16/24 E66.9 - Obesity, unspecified, E78.2 - Mixed hyperlipidemia, I10 - Essential (primary) hypertension, R73.01 - Impaired fasting glucose, E83.42 - Hypomagnesemia Medications: Refilled alprazolam 0.25 mg (1/2 x 0.5 mg) PO DAILY PRN 20 tabs 0RF acute anxiety attacks Coding Level of Care Code Est Pt Level 4 (25838) Diagnoses Mixed dyslipidemia E78.2 Primary hypertension I10 Hypertension type: primary hypertension Impaired fasting glucose R73.01 Hypomagnesemia E83.42 Anxiety F41.9 Additional Codes MARY-7 Assessment Billing - MARY-7 Assessment Tool: MARY-7 Assessment 12842 ([id number])
== END 2023-10-24 12:54 | disposition home or self-care (01) ==
PROVIDERS: PCP Internal Medicine; Visit Provider Internal Medicine
DX: E78.2 Mixed hyperlipidemia (principal); I10 Essential (primary) hypertension; R73.01 Impaired fasting glucose; E83.42 Hypomagnesemia; F41.9 Anxiety disorder, unspecified
CPT/HCPCS: 99214

== ENCOUNTER 2023-12-23 14:04 | Outpatient (AMB) | payer MEDICARE, SELFPAY ==
--- NOTE | 2023-12-23 14:08 | MHC.OFFVIS ---
Intake Vital Signs 12/23/23 14:20 Height 5 ft 10 in Weight 188 lb BMI 27.0 BP 125/71 Blood Pressure Location Lt brachial Position Sitting Pulse 55 Intake Visit Reasons: 2 month follow up Intake Note: Patient is seen in office for 2 month follow up visit, following IBS and GERD. Pt c/o: denies any concerns or changes at the time of visit, taking Prilosec as needed Foundry Technician Required: No Accompanied by: Self / Same As Patient Allergies No Known Allergies [No Known Allergies*] Allergy (Verified 12/23/23 14:22) HPI 2 month follow up HPI Details LAST VISIT: Chronic gastroesophageal reflux disease Heartburn Hypomagnesemia IBS (irritable bowel syndrome) Diarrhea Plan Continue fiber and high-fiber diet. Avoid dietary triggers. Continue omeprazole on as needed basis. Patient can stop taking sucralfate. Continue following low FODMAP diet. I will see patient in 2 months to discuss going for colonoscopy. Patient is agreeable to this plan and verbalizes understanding of instructions. He was given the opportunity to ask questions all questions answered. ? TODAY'S VISIT: Patient is here today for follow-up and to discuss going for colonoscopy. Patient had colonoscopy in November of [address] Garcia and was told to repeat colonoscopy in 5 years. Patient will be leaving to go to [facility] for few months to his house and is requesting to go for screening when he returns. Patient denies any issues with anesthesia in the past. No history of sleep apnea. He is not on any anticoagulation medication. His acid reflux is suppressed with omeprazole and he takes it on as needed basis. Patient denies any cardiac or respiratory symptoms. Reports to be doing fairly well. Trying to follow FODMAP diet as much as possible. FORMERLY [facility] Medical History Thiamine deficiency Vitamin D deficiency Chronic gastroesophageal reflux disease Obesity (BMI 30.0-34.9) Hepatic encephalopathy Alcohol use disorder Hyperammonemia Chronic deep vein thrombosis (DVT) of distal vein of right lower extremity History of hepatitis B Varicose vein of leg Pain in joint, foot, left Lower leg DVT (deep venous thromboembolism), acute H/O irritable bowel syndrome Insomnia Anxiety Mixed dyslipidemia HTN (hypertension) Gout Impaired fasting glucose Surgical History History of esophagogastroduodenoscopy (EGD) H/O varicose vein stripping Hx of colonoscopy Status post rotator cuff surgery S/P lumbar microdiscectomy Family History Mother Varicose vein of leg Father No problems noted. Brother No problems noted. Brother No problems noted. Son No problems noted. Son No problems noted. Social History Household Members: Spouse Housing: House Are you a primary animal daycare provider to a significant other at home: No Do you presently have visiting nurse or other home services: No Alcohol intake: former Patient Tobacco Use Status: Never used Tobacco Tobacco use type: Cigar e-Cigarette/Vaping Use: Never Used Current occupational status: retired Cognitive needs: No Hearing needs: No Vision needs: Yes Review of Systems Const Denies weight gain and Denies weight loss ENT Reports no additional complaints, Denies dysphagia and Denies odynophagia Card Reports no additional complaints Resp Reports no additional complaints GI Denies abdominal pain, Denies belching, Denies melena, Denies bloating, Denies change in bowel habits, Denies dysphagia, Denies excessive flatus, Denies dyspepsia, Denies heartburn, Denies diarrhea, Denies loose stools, Denies nausea, Denies odynophagia and Denies vomiting Reports no additional complaints Musc Reports no additional complaints Neuro Reports no additional complaints Psych Reports no additional complaints Endo Reports no additional complaints Physical Exam Vital Signs: Last Vital Signs Pulse 55 12/23/23 14:20 BP 125/71 12/23/23 14:20 BMI result Body Mass Index 27.0 Const General: healthy appearing, no acute distress and well developed Nutritional Appearance: well nourished Orientation/consciousness: patient oriented x3 Resp Effort & Inspection: normal respiratory effort, able to speak in complete sentences, no tracheal deviation and symmetric chest movement Auscultation: clear to auscultation bilaterally Cardio Rate: regular rate GI Inspection: Yes normal to inspection and No distended Palpation (GI): Soft to palpation, not firm, nontender and No hepatosplenomegaly present Auscultation: normal bowel sounds General: Yes no CVA tenderness Back/Spine/Pelvis Back: no CVA tenderness Skin General skin exam: elasticity normal, turgor normal and dry skin Neuro General: patient oriented x3 Psych Appearance: grossly normal Mental Status: mental status grossly normal Assessment & Plan Assessment & Plan (1) Chronic gastroesophageal reflux disease: Code(s): K21.9 - Gastro-esophageal reflux disease without esophagitis (2) Heartburn: Code(s): R12 - Heartburn (3) Hypomagnesemia: Code(s): E83.42 - Hypomagnesemia (4) IBS (irritable bowel syndrome): Code(s): K58.9 - Irritable bowel syndrome without diarrhea Qualifiers: Irritable bowel syndrome type: with both diarrhea and constipation Qualified Code(s): K58.2 - Mixed irritable bowel syndrome (5) Diarrhea: Code(s): R19.7 - Diarrhea, unspecified Qualifiers: Diarrhea type: functional diarrhea Qualified Code(s): K59.1 - Functional diarrhea (6) Screen for colon cancer: Code(s): Z12.11 - Encounter for screening for malignant neoplasm of colon Plan Continue avoiding dietary triggers. Staying upright for minimum 3 hours after meals discussed with patient. Low FODMAP diet as recommended before. Continue Prilosec on as-needed basis or Pepcid whichever works better for him. Patient will be scheduled for colonoscopy. Denies any issues with anesthesia in the past. No history of sleep apnea. Not on any anticoagulation medication. No cardiac or respiratory symptoms. What to expect before, during or after procedure discussed with patient. I will see him after the procedure, sooner on as needed basis. Patient is agreeable to this plan and verbalizes understanding of instructions. He was given the opportunity to ask questions and all questions answered. Thank you for allowing me to participate in his care Medications: New bisacodyl (Dulcolax (bisacodyl)) take 4 tabs at noon the day before your colonoscopy 20 mg (4 x 5 mg) PO ONCE 1 day 4 tabs 0RF Z12.11 - Encounter for screening for malignant neoplasm of colon polyethylene glycol 3350 (Miralax) As directed by gastroenterology department at [facility] 238 grams PO ONCE 238 grams 0RF Z12.11 - Encounter for screening for malignant neoplasm of colon Coding Level of Care Code Est Pt Level 4 (05508) Diagnoses Chronic gastroesophageal reflux disease K21.9 Heartburn R12 Hypomagnesemia E83.42 Irritable bowel syndrome with both constipation and diarrhea K58.2 Irritable bowel syndrome type: with both diarrhea and constipation Functional diarrhea K59.1 Diarrhea type: functional diarrhea Screen for colon cancer Z12.11 Time Spent (min) 35 Comment 25 minutes spent with patient and additional 10 minutes spent reviewing his records
[2023-12-23 14:20] VITALS: BP 125/71; PULSE 55; BMI 27.0
== END 2023-12-23 14:40 | disposition home or self-care (01) ==
PROVIDERS: PCP Internal Medicine; Visit Provider Nurse Practitioner Family
DX: K21.9 Gastro-esophageal reflux disease without esophagitis (principal); R12 Heartburn; E83.42 Hypomagnesemia; K58.2 Mixed irritable bowel syndrome; K59.1 Functional diarrhea; Z12.11 Encounter for screening for malignant neoplasm of colon
CPT/HCPCS: 99214

== ENCOUNTER → 2023-12-23 14:04 | Outpatient (BNVA) | payer MEDICARE, SELFPAY | PROVIDERS: PCP Internal Medicine; Visit Provider Nurse Practitioner Family | DX: Z12.11 Encounter for screening for malignant neoplasm of colon (principal); K21.9 Gastro-esophageal reflux disease without esophagitis; K58.2 Mixed irritable bowel syndrome; K59.1 Functional diarrhea; R12 Heartburn; E83.42 Hypomagnesemia | CPT/HCPCS: 99212 ==

== ENCOUNTER 2024-01-04 10:53 | Emergency (ER) | payer MEDICARE, SELFPAY ==
--- NOTE | ~2024-01-04 | CT_ITS ---
EXAMINATION: CT CHEST WITH CONTRAST CLINICAL INFORMATION: Trauma. Left chest wall pain. COMPARISON: None available. TECHNIQUE: Multidetector volumetric CT imaging of the chest was obtained after the administration of 65 mL of Omnipaque 350 intravenous contrast without immediate adverse reactions. Axial MIP volume rendering provided. Sagittal and coronal reformatted images were obtained. This CT examination was performed using dose optimization techniques as appropriate, variously including the following: *Automated exposure control *Adjustment of mA and/or kV according to patient size (this includes techniques or standardized protocols for targeted exams where dose is matched to indication/reason for exam; i.e. extremities or head) *Use of iterative reconstruction technique DLP: 323 mGy-cm FINDINGS: STITCH BONDING MACHINE DRAWER IN: Normal LUNGS: The lungs are clear with no evidence of inflammation or nodules. MEDIASTINUM: The mediastinum is normal. Mild coronary artery calcification PLEURA: There is no pleural effusion. No pleural mass or thickening. AXILLA: No lymphadenopathy. UPPER ABDOMEN: Unremarkable OSSEOUS STRUCTURES: Old right anterior fourth fractures. No acute rib fracture. Degenerative changes of spine. CT/CT chest w IV con IMPRESSION: No acute findings. Fleischner guidelines were followed.
--- NOTE | ~2024-01-04 | XR_ITS ---
EXAMINATION: XR KNEE, RIGHT CLINICAL INFORMATION: Trauma COMPARISON: None available. TECHNIQUE: Four views of the right knee. FINDINGS: No acute fracture or dislocation. Some degenerative changes are noted here. XR/XR knee RT 4V IMPRESSION: No acute fracture or dislocation.
--- NOTE | ~2024-01-04 | CT_ITS ---
EXAMINATION: CT HEAD WITHOUT CONTRAST CT FACE WITHOUT CONTRAST CT CERVICAL SPINE WITHOUT CONTRAST CLINICAL INFORMATION: Fall. Right orbital trauma. Anterior chest pain. COMPARISON: No relevant prior imaging. TECHNIQUE: Diamond Sizer And Sorter images were obtained. CT imaging of the head, face, and cervical spine was performed without contrast. Data was reformatted into multiplanar images at the acquisition workstation. This CT examination was performed using dose optimization techniques as appropriate, including one or more of the following: Automated exposure control, iterative reconstruction, and adjustment of technique factors (mA and/or kVp) according to patient size (this includes techniques or standardized protocols for targeted exams where dose is matched to indication/reason for exam). Fleischner Society criteria for the followup of incidental pulmonary nodules was implemented if appropriate. DLP: 1464 mGy-cm. FINDINGS: Head: There is no acute intracranial hemorrhage or abnormal extra-axial collection. No intracranial mass effect or midline shift. Lateral and third ventricles are normal. No hydrocephalus. Tyson-white matter differentiation is grossly preserved and there is no evidence of acute territorial infarct. The calvarium and skull base are grossly intact. Face: There is an acute minimally displaced right orbital blowout fracture with approximately 2 mm downward displacement of the right orbital floor. No identifiable entrapment of the right inferior rectus muscle. No retrobulbar hematoma. Scattered foci of soft tissue gas are visualized within the retrobulbar fat and preseptal soft tissues. Lamina papyracea are grossly intact. Orbital apices are unremarkable. Grossly no evidence of globe rupture. There is no acute mandibular fracture. The temporomandibular joints are symmetric. Cervical spine: There is slight retrolisthesis of to 4 on C5. Alignment is otherwise normal. Vertebral heights are preserved. No acute fracture. No abnormal prevertebral soft tissue swelling. There is relatively advanced degenerative arthrosis of the atlantodental joint. There is also loss of intervertebral disc height with associated sclerotic degenerative endplate changes and marginal hypertrophic disc osteophyte spurring at C4-C5 and C5-C6. Grossly no canal compromise. Mild left bony neuroforaminal encroachment at C4-C5. Visualized soft tissues of the neck are unremarkable. Lung apices are clear. CT/CT cervical spine wo IV con IMPRESSION: There is an acute minimally displaced right orbital blowout fracture with approximately 2 mm downward displacement of the right orbital floor. No identifiable entrapment of the nearby right inferior rectus muscle. No retrobulbar hematoma. No acute intracranial hemorrhage. No acute cervical spine fracture.
--- NOTE | ~2024-01-04 | CT_ITS ---
EXAMINATION: CT HEAD WITHOUT CONTRAST CT FACE WITHOUT CONTRAST CT CERVICAL SPINE WITHOUT CONTRAST CLINICAL INFORMATION: Fall. Right orbital trauma. Anterior chest pain. COMPARISON: No relevant prior imaging. TECHNIQUE: Telephone Lineman images were obtained. CT imaging of the head, face, and cervical spine was performed without contrast. Data was reformatted into multiplanar images at the acquisition workstation. This CT examination was performed using dose optimization techniques as appropriate, including one or more of the following: Automated exposure control, iterative reconstruction, and adjustment of technique factors (mA and/or kVp) according to patient size (this includes techniques or standardized protocols for targeted exams where dose is matched to indication/reason for exam). Fleischner Society criteria for the followup of incidental pulmonary nodules was implemented if appropriate. DLP: 1464 mGy-cm. FINDINGS: Head: There is no acute intracranial hemorrhage or abnormal extra-axial collection. No intracranial mass effect or midline shift. Lateral and third ventricles are normal. No hydrocephalus. Tyson-white matter differentiation is grossly preserved and there is no evidence of acute territorial infarct. The calvarium and skull base are grossly intact. Face: There is an acute minimally displaced right orbital blowout fracture with approximately 2 mm downward displacement of the right orbital floor. No identifiable entrapment of the right inferior rectus muscle. No retrobulbar hematoma. Scattered foci of soft tissue gas are visualized within the retrobulbar fat and preseptal soft tissues. Lamina papyracea are grossly intact. Orbital apices are unremarkable. Grossly no evidence of globe rupture. There is no acute mandibular fracture. The temporomandibular joints are symmetric. Cervical spine: There is slight retrolisthesis of to 4 on C5. Alignment is otherwise normal. Vertebral heights are preserved. No acute fracture. No abnormal prevertebral soft tissue swelling. There is relatively advanced degenerative arthrosis of the atlantodental joint. There is also loss of intervertebral disc height with associated sclerotic degenerative endplate changes and marginal hypertrophic disc osteophyte spurring at C4-C5 and C5-C6. Grossly no canal compromise. Mild left bony neuroforaminal encroachment at C4-C5. Visualized soft tissues of the neck are unremarkable. Lung apices are clear. CT/CT facial bones wo IV con IMPRESSION: There is an acute minimally displaced right orbital blowout fracture with approximately 2 mm downward displacement of the right orbital floor. No identifiable entrapment of the nearby right inferior rectus muscle. No retrobulbar hematoma. No acute intracranial hemorrhage. No acute cervical spine fracture.
[2024-01-04 11:03] VITALS: BP 138/68; PULSE 70; RESP 18; TEMP 37.1; O2SAT 98; BMI 28.5
--- NOTE | 2024-01-04 11:06 | ECG_ITS ---
Test Reason : SYNCOPE Blood Pressure : / mmHG Vent. Rate : 045 BPM Atrial Rate : 058 BPM P-R Int : 164 ms QRS Dur : 080 ms QT Int : 428 ms P-R-T Axes : 019 039 043 degrees QTc Int : 370 ms Sinus bradycardia with with junctional escape Abnormal ECG No previous ECGs available Referred By: Glenny Dao Electronically Signed By:DALILA JO MD
--- NOTE | 2024-01-04 11:09 | ED.FALL ---
HPI - Fall General Chief Complaint: Fall Stated Complaint: fall head and eye inj chest pain Time Seen by Provider: 01/04/24 12:53 History of Present Illness HPI Narrative: 73-year-old male with a history александр deficiency, magnesium deficiency, GERD, alcohol use disorder, hepatic encephalopathy, DVT, hepatitis-B,, IBS, insomnia, anxiety, hyperlipidemia, hypertension, gout who presents emergency department for evaluation of trip and fall that occurred last night at 20:00 hours. The patient reports that he tripped and fell either over his long pant leg or over a cold that was draped over chair. Patient fell forward and did not brace himself and landed on his face chest and right knee. His heard the fall and found him lying on the floor face down. Patient does not believe that he had any loss of consciousness. states that he was confused and did not remember the conversation that they had just before his fall. The patient did sustain right facial injury, right-sided chest injury and right knee injury but refused to come to the emergency department yesterday. Today, his right eye was swollen shut and had increased pain in his right face right chest and right knee therefore came to emergency department for evaluation. He states that his pain overall is 8/10 and he did not take any pain medications at home. Patient states he does drink 2-3 glasses of wine with dinner. He also smokes marijuana once a day. He has currently not on any blood thinners. Related Data Home Medications Medication Instructions Recorded Confirmed sucralfate 1 gram tablet 1 g PO BEDTIME 10/24/23 terbinafine HCl 250 mg tablet mg PO 12/23/23 Previous Rx's Medication Instructions Recorded omeprazole 20 mg capsule,delayed 20 mg PO .COMPLEX #30 caps 03/14/23 release losartan 25 mg tablet 25 mg PO DAILY 90 days #90 tabs 04/21/23 magnesium oxide 400 mg PO BEDTIME #90 tabs 05/02/23 folic acid 1 mg tablet 1 mg PO DAILY #90 tabs 05/25/23 allopurinol 300 mg tablet 300 mg PO DAILY #90 tabs 06/28/23 escitalopram oxalate 20 mg tablet 20 mg PO DAILY #90 tabs 06/28/23 atorvastatin 10 mg tablet 10 mg PO DAILY #90 tabs 08/15/23 amlodipine 5 mg tablet 5 mg PO DAILY #90 tabs 08/22/23 alprazolam 0.5 mg tablet 0.25 mg (1/2 x 0.5 mg) PO DAILY 10/24/23 PRN acute anxiety attacks #20 tabs bisacodyl 5 mg tablet,delayed 20 mg (4 x 5 mg) PO ONCE 1 day #4 12/23/23 release (Dulcolax (bisacodyl)) tabs polyethylene glycol 3350 17 238 g PO ONCE #238 grams 12/23/23 gram/dose oral powder (Miralax) amoxicillin 875 mg-potassium 1 tab PO Q12H 7 days #14 tabs 01/04/24 clavulanate 125 mg tablet morphine 15 mg immediate release 15 mg PO Q6H PRN pain #10 tabs 01/04/24 tablet Allergies Allergy/AdvReac Type Severity Reaction Status Date / Time No Known Allergies Allergy Verified 01/04/24 11:03 [No Known Allergies*] Review of Systems Review of Systems: Yes all other systems are reviewed and are negative [facility] Past Medical History [facility] Narrative: Social history: Patient is . He denies tobacco use. He drinks 3 glasses of wine per day with dinner. He smokes marijuana daily. Medical History Thiamine deficiency Vitamin D deficiency Chronic gastroesophageal reflux disease Obesity (BMI 30.0-34.9) Hepatic encephalopathy Alcohol use disorder Hyperammonemia Chronic deep vein thrombosis (DVT) of distal vein of right lower extremity History of hepatitis B Varicose vein of leg Pain in joint, foot, left Lower leg DVT (deep venous thromboembolism), acute H/O irritable bowel syndrome Insomnia Anxiety Mixed dyslipidemia HTN (hypertension) Gout Impaired fasting glucose Surgical History History of esophagogastroduodenoscopy (EGD) H/O varicose vein stripping Hx of colonoscopy Status post rotator cuff surgery S/P lumbar microdiscectomy Family History Family History Mother Varicose vein of leg Father No problems noted. Brother No problems noted. Brother No problems noted. Son No problems noted. Son No problems noted. Social History Social History Household Members: Spouse Housing: House Are you a primary transitional care manager to a significant other at home: No Do you presently have visiting nurse or other home services: No Alcohol intake: former Patient Tobacco Use Status: Never used Tobacco Tobacco use type: Cigar Smoked in Last 30 Days: No e-Cigarette/Vaping Use: Never Used Use of substances other than those prescribed or required for medical reasons: Yes Substance Use Type: Marijuana Advance Directives: Yes Advance Directives on File: Yes Advance Directives Date on File: 04/26/23 Current occupational status: retired Cognitive needs: No Hearing needs: No Vision needs: Yes Physical Exam Vital Signs: Vital Signs: Last Vital Signs Temp 98.7 F 01/04/24 11:03 Pulse 54 01/04/24 12:56 Resp 18 01/04/24 11:03 BP 108/79 01/04/24 12:56 Pulse Ox 98 01/04/24 11:03 O2 Del Method Room Air 01/04/24 11:03 BMI result Body Mass Index 28.5 Vital signs were normal Exam: General: Awake, alert in no distress Head: Patient has significant ecchymosis and soft tissue swelling of his right forehead, right upper and lower eyelids to the point where he is eyes swollen shut. His right maxillary and zygomatic area is also swollen and tender to palpation EENT: PERRL, patient's right circumferential right scleral hemorrhage, extraocular muscles are intact with no double vision, upper and lower lids are ecchymotic and swollen shut. Patient does have ecchymosis over his nasal bridge but no significant tenderness, septum is midline . Ears appear normal Neck: Supple, no adenopathy Lung: breath sounds symmetric, no wheezing, rales or rhonchi Chest: symmetric movement, patient has ecchymosis to the sternum and right chest with significant tenderness palpation of the right anterior chest and sternum Heart: regular rate and rhythm, normal S1, S2 no murmurs or rubs Abdomen: soft, moderate right upper quadrant tenderness, nondistended, normal bowel sounds Back: no vertebral tenderness, no CVAT Extremities: no deformities, moves all extremities symmetrically, tenderness palpation over the medial aspect of the right knee with no ecchymosis, full range of motion, patient is able to walk in any difficulty Neuro: Awake, alert, oriented, normal speech, cranial nerves intact, moves all extremities symmetrically Psych: Pleasant, cooperative Course Course Course Narrative: RME: 73 year-old M w/ PMHx gout, HTN, HLD ETOH use, presenting to the ED c/o right eye/facial, anterior/right rib/chest wall pain and right knee pain s/p ?syncope w/fall last night around 8PM w/+head strike, unknown LOC. take Xarelto p.r.n. with travel, denies taking recently. + right periorbital ecchymosis and swelling appreciated with right subconjunctival hemorrhage. Difficult to examine in triage. Anterior chest/right rib tenderness appreciated. Patient will be brought back to main ED directly from triage EKG, Labs, CTs, XR, Orthos ordered Full HPI, ROS and PE to be performed by primary ED provider. Medications Administered Discontinued Medications Generic Name Dose Route Start Last Admin Trade Name Freq PRN Reason Stop Dose Admin Magnesium Sulfate 2 gm in 50 mls @ 25 mls/hr 01/04/24 12:42 01/04/24 13:06 Magnesium Sulfate/H2o IV 01/04/24 14:41 25 mls/hr ONCE ONE Administration Iohexol 100 ml 01/04/24 13:25 01/04/24 13:26 Iohexol 350 Mg/Ml 100 Ml Infus..Btl IV 01/04/24 13:26 65 ml ONCE ONE Administration Morphine Sulfate 4 mg 01/04/24 13:15 01/04/24 13:40 Morphine Sulfate 4 Mg/Ml Cartridge IVPUSH 01/04/24 13:16 4 mg ONCE STA Administration Protocol Ondansetron HCl 4 mg 01/04/24 13:15 01/04/24 13:37 Ondansetron Hcl 4 Mg/2 Ml Vial IVPUSH 01/04/24 13:16 4 mg ONCE ONE Administration Medical Decision Making Medical Decision Making [facility] Narrative: 73-year-old male with a history александр deficiency, magnesium deficiency, GERD, alcohol use disorder, hepatic encephalopathy, DVT, hepatitis-B,, IBS, insomnia, anxiety, hyperlipidemia, hypertension, gout who presents emergency department for evaluation of trip and fall that occurred last night at 20:00 hours with right facial injury, right chest injury and right knee injury. Vital signs were unremarkable. Examination did reveal significant right periorbital swelling with involvement of both the right upper and lower eyelids, circumferential your testing scleral hematoma with intact extraocular muscles shows and small significant tenderness palpation of the right lower minute with an your maxillary area with his stones and zygoma area. Patient also has significant your right sternal and right chest tenderness with ecchymosis area. Right knee had full range of motion is able to walk without any difficulty Differential diagnosis: Includes but is not limited to skull fracture, intracranial bleed, orbital fracture, same number maxillary sinus fracture, right zygoma fracture, sternal fracture, rib fractures, right knee fracture, liver laceration Following evaluation was ordered: CT scan of the head, cervical spine and facial bones without IV contrast. CT chest with IV contrast. Right knee x-ray. CBC, BMP, liver panel, PT/INR, magnesium, troponin, urinalysis, urine drug screen, ethanol level Patient was initially treated with the following: Morphine 4 mg IV and Zofran 4 mg IV 13:34 My interpretation patient's laboratory evaluation is as follows: Thrombocytopenia with a platelet count a [id number]. H&H was normal 14 and 40.3. CMP was normal. Troponin was below detectable limits. Magnesium was low at 1.4. PT/INR were normal. 15:[address] scan of the face did reveal a blowout fracture but no obvious entrapment of the patient's extraocular muscles which is consistent with the patient's ocular exam. The CT head, cervical spine and chest did not reveal any acute fractures which is reassuring. The right knee x-ray also revealed no acute fractures. I did discuss these findings with the patient. The patient will be started on Augmentin 875/125 mg q.12 hours x7 days prophylactically to prevent infection. He was advised to use natural tears 2 drops every hours in his right eye secondary to the scleral hematoma. He was advised to avoid Tylenol and ibuprofen given his liver disease and alcohol use disorder. He was prescribed morphine 15 mg, 1 pill every 6 hours as needed for pain. Patient will be referred to our pv design and installation technician, Dr. Farnsworth for evaluation of his eye injury. Admission/Observation Consideration of admission/observation: Escalation of care including admission/observation considered Lab Data MDM Lab Attestation statement: I reviewed the patient's lab results. 01/04/24 11:33 01/04/24 11:33 Labs: Lab Results 01/04/24 01/04/24 Range/Units 11:33 13:35 WBC 7.2 (4.8-10.8) X10*3/uL RBC 4.18 L (4.60-5.80) X10*6/uL Hgb 14.0 (14.0-18.0) g/dl Hct 40.3 L (42.0-52.0) % MCV 96.4 (80.0-98.0) fL MCH 33.5 H (27.0-33.0) pg MCHC 34.7 (31.0-36.0) g/dl RDW 12.7 (11.0-16.0) % Plt Count 145 L (160-400) X10*3/uL MPV 9.3 L (9.4-12.4) fL Immature Gran % (Auto) 0.3 (0.0-0.4) % Neut % (Auto) 64.5 (45-73) % Lymph % (Auto) 23.6 (20-40) % [place] % (Auto) 9.9 (2-11) % Eos % (Auto) 1.3 (0-4) % Baso % (Auto) 0.4 (0-2) % Lymph # (Auto) 1.7 (1.2-4.9) X10*3/uL [place] # (Auto) 0.7 (0.1-1.2) X10*3/uL Eos # (Auto) 0.1 (0.0-0.4) X10*3/uL Baso # (Auto) 0.0 (0.0-0.2) X10*3/uL Abs Immat Gran (auto) 0.02 (0.00-0.03) X10*3/uL Absolute Neuts (auto) 4.6 (2.0-8.3) x10*3/uL Absolute Nucleated RBC 0.000 (0.0-0.012) X10*3/uL Nucleated RBC % (auto) 0.0 (0.0-0.2) /100WBC PT 11.6 (11.1-13.3) SEC INR 1.0 (0.9-1.1) Sodium 141 (135-145) mmol/L Potassium 4.5 (3.3-5.1) mmol/L Chloride 107 (96-108) mmol/L Carbon Dioxide 27 (22-29) mmol/L Anion Gap 12 (12-20) BUN 14 (9-16) mg/dL Creatinine 0.76 (0.5-1.4) mg/dL Estim Creat Clear Calc 94.7 Estimated GFR > 60 Random Glucose 80 (60-115) mg/dL Calcium 8.8 (8.4-10.2) mg/dL Magnesium 1.4 L* (1.6-2.6) mg/dL Total Bilirubin 0.6 (0.0-1.0) mg/dL Direct Bilirubin 0.2 (0.0-0.5) mg/dL AST 24 (5-37) U/L ALT 17 (0-40) U/L Alkaline Phosphatase 61 (39-117) U/L Troponin I High Sens < 2.7 (<3.5-35.0) ng/L Total Protein 5.7 L (6.5-8.0) g/dL Albumin 3.5 (3.5-5.0) g/dL Urine Color Yellow Urine Appearance Clear Urine pH 6.0 (5.0-9.0) Ur Specific [place] 1.020 (1.005-1.025) Urine Protein Negative (Neg-Trace) mg/dL Urine Glucose (UA) Negative (Negative) mg/dL Urine Ketones Negative (Negative) mg/dL Urine Blood Negative (Negative) Urine Nitrite Negative (Negative) Ur Leukocyte Esterase Negative (Negative) Urine Opiates Screen Not Detected (Not Detect) Urine Fentanyl Screen Not Detected (Not Detect) Ur Barbiturates Screen Not Detected (Not Detect) Ur Phencyclidine Scrn Not Detected (Not Detect) Ur Amphetamines Screen Not Detected (Not Detect) U Benzodiazepines Scrn Not Detected (Not Detect) Urine Cocaine Screen Not Detected (Not Detect) U Marijuana (THC) Screen POSITIVE H (Not Detect) Ethyl Alcohol < 10 mg/dL Independent Interpretation I performed an independent interpretation of an: Plain X-Ray Interpretation: My interpretation the patient's three-view right knee x-ray is as follows: No acute fracture seen Radiology Impression Discussion of test interpretation with radiology: I have reviewed the radiologist's reading. Radiologist Impression: EXAMINATION: CT HEAD WITHOUT CONTRAST CT FACE WITHOUT CONTRAST CT CERVICAL SPINE WITHOUT CONTRAST CLINICAL INFORMATION: Fall. Right orbital trauma. Anterior chest pain. FINDINGS: Head: There is no acute intracranial hemorrhage or abnormal extra-axial collection. No intracranial mass effect or midline shift. Lateral and third ventricles are normal. No hydrocephalus. Tyson-white matter differentiation is grossly preserved and there is no evidence of acute territorial infarct. The calvarium and skull base are grossly intact. Face: There is an acute minimally displaced right orbital blowout fracture with approximately 2 mm downward displacement of the right orbital floor. No identifiable entrapment of the right inferior rectus muscle. No retrobulbar hematoma. Scattered foci of soft tissue gas are visualized within the retrobulbar fat and preseptal soft tissues. Lamina papyracea are grossly intact. Orbital apices are unremarkable. Grossly no evidence of globe rupture. There is no acute mandibular fracture. The temporomandibular joints are symmetric. Cervical spine: There is slight retrolisthesis of to 4 on C5. Alignment is otherwise normal. Vertebral heights are preserved. No acute fracture. No abnormal prevertebral soft tissue swelling. There is relatively advanced degenerative arthrosis of the atlantodental joint. There is also loss of intervertebral disc height with associated sclerotic degenerative endplate changes and marginal hypertrophic disc osteophyte spurring at C4-C5 and C5-C6. Grossly no canal compromise. Mild left bony neuroforaminal encroachment at C4-C5. Visualized soft tissues of the neck are unremarkable. Lung apices are clear. IMPRESSION: There is an acute minimally displaced right orbital blowout fracture with approximately 2 mm downward displacement of the right orbital floor. No identifiable entrapment of the nearby right inferior rectus muscle. No retrobulbar hematoma. No acute intracranial hemorrhage. No acute cervical spine fracture. Dictated By: Max Babcock MD XR knee RT 4V IMPRESSION: No acute fracture or dislocation. Dictated By: Roberto Marcos MD EXAMINATION: CT CHEST WITH CONTRAST CLINICAL INFORMATION: Trauma. Left chest wall pain. COMPARISON: None available. LUNGS: The lungs are clear with no evidence of inflammation or nodules. MEDIASTINUM: The mediastinum is normal. Mild coronary artery calcification PLEURA: There is no pleural effusion. No pleural mass or thickening. AXILLA: No lymphadenopathy. UPPER ABDOMEN: Unremarkable OSSEOUS STRUCTURES: Old right anterior fourth fractures. No acute rib fracture. Degenerative changes of spine. IMPRESSION: No acute findings. Fleischner guidelines were followed. Dictated By: Viviane Mares MD Independent Historian Clinical information obtained from an independent historian. History obtained from or confirmed by: Spouse External Record Review External record reviewed: Office record Prescription Management I considered prescription management with: Pain Medication (Morphine) Chronic Conditions Patient?s care impacted by: Hypertension and Other (Hyperlipidemia, alcohol use disorder) Critical Care Time Critical Care Time Critical Care Time: Yes Total Critical Care Time: 60 Attestation: Critical Care: The patient was critically ill with a high probability of imminent or life threatening deterioration. I spent greater than 30 minutes of discontinuous time evaluating the patient,delivering critical care at the bedside, discussing and evaluating pertinent data with consultants. Critical care time does not include time spent performing separately billable procedures or teaching. Total time spent performing critical care was 60 minutes. Discharge Plan Discharge Clinical Impression: Fall, Closed blow-out fracture of right orbit, Scleral hemorrhage of right eye, Chest wall contusion, Closed head injury, Contusion of knee, right Patient Disposition: Home, Self-Care Instructions: Facial Fracture (ED), Head Injury (ED), Chest Wall Pain (ED) Additional Instructions: The CT scan of your head neck and chest revealed no broken bones which is reassuring. The x-ray of your right knee also showed no broken bones The CT scan of your facial bones revealed a blowout fracture of the floor of the orbit around the on and the ceiling of the maxillary sinus. The muscles of the eye do look like they are in the fracture however they do not look like they are stuck since you can move your eye back and forth without seeing double which is very reassuring. You also have bleeding of the white part of your eye (scleral hemorrhage). Apply natural teardrops 2 drops every hour while awake to keep your eye moist. Do not take NSAIDs ( ibuprofen, Motrin, Advil, Aleve, naproxen) or Tylenol since you have liver disease. For pain take morphine 15 mg pills, 1 pill every 6 hours as needed for pain. This medication will make you sleepy, do not drive or work while taking this medication. Morphine is a narcotic medication and can be addicting. If you are concerned about addiction you can ask the pharmacist for less pills or do not get this prescription filled. Please follow-up with our pv design and installation technician, Dr. Farnsworth for re-evaluation of your scleral hemorrhage and your blowout fracture. Take Augmentin 875/125, 1 pill every 12 hours for 7 days to try to prevent infection of your eye and sinuses. DO NOT BLOW YOUR NOSE! Follow-up with your doctor in 2 days. Please return to the emergency department if your symptoms get worse or if you develop any symptoms that are concerning to you. Prescriptions: New amoxicillin-pot clavulanate 875-125 mg tablet 1 tab PO Q12H 7 Days Qty: 14 0RF morphine 15 mg tablet 15 mg PO Q6H PRN (Reason: pain) Qty: 10 0RF Rx Instructions: The patient may ask for partial fill; Partial Fill upon patient request. No Action losartan 25 mg tablet 25 mg PO DAILY 90 Days Qty: 90 3RF folic acid 1 mg tablet 1 mg PO DAILY Qty: 90 1RF allopurinol 300 mg tablet 300 mg PO DAILY Qty: 90 1RF escitalopram oxalate 20 mg tablet 20 mg PO DAILY Qty: 90 1RF atorvastatin 10 mg tablet 10 mg PO DAILY Qty: 90 1RF amlodipine 5 mg tablet 5 mg PO DAILY Qty: 90 1RF alprazolam 0.5 mg tablet 0.25 mg PO DAILY PRN (Reason: acute anxiety attacks ) Qty: 20 0RF magnesium oxide 400 mg magnesium tablet 400 mg PO BEDTIME Qty: 90 2RF terbinafine HCl 250 mg tablet PO bisacodyl [Dulcolax (bisacodyl)] 5 mg tablet,delayed release (DR/EC) 20 mg PO ONCE 1 Days Qty: 4 0RF Rx Instructions: take 4 tabs at noon the day before your colonoscopy polyethylene glycol 3350 [Miralax] 17 gram/dose powder 238 g PO ONCE Qty: 238 0RF Rx Instructions: As directed by gastroenterology department at [facility] omeprazole 20 mg capsule,delayed release(DR/EC) 20 mg PO .COMPLEX Qty: 30 3RF Rx Instructions: 20 mg orally Take Tuesday, Tuesday, Tuesday; sucralfate 1 gram tablet 1 g PO BEDTIME Hold Instructions: Doctor's Order Referrals: Jacobo Farnsworth [Physician] - (Right blowout fracture, no entrapment-eye moves normally with no double vision, circumferential scleral hemorrhage. Started on natural tears 2 drops every hour while awake and Augmentin 875/125 mg q.12 hours x7 days)
[2024-01-04 11:42] LABS: Basophils Percent Auto 0.4 % (0-2); Eosinophils Absolute Auto 0.1 X10*3/uL (0.0-0.4); Eosinophils Percent Auto 1.3 % (0-4); Hematocrit 40.3 % (42.0-52.0); Imm Gran Abs Auto 0.02 X10*3/uL (0.00-0.03); Imm Gran Pct Auto 0.3 % (0.0-0.4); Lymphocytes Absolute Auto 1.7 X10*3/uL (1.2-4.9); Lymphocytes Percent Auto 23.6 % (20-40); MANUAL DIFF FLAG NO; Mean Corpuscular HGB Conc 34.7 g/dl (31.0-36.0); Mean Corpuscular Hemoglobin 33.5 pg (27.0-33.0); Mean Corpuscular Volume 96.4 fL (80.0-98.0); Mean Platelet Volume 9.3 fL (9.4-12.4); Monocytes Absolute Auto 0.7 X10*3/uL (0.1-1.2); Monocytes Percent Auto 9.9 % (2-11); Neutrophils Absolute Auto 4.6 x10*3/uL (2.0-8.3); Neutrophils Percent Auto 64.5 % (45-73); Platelet Count 145 X10*3/uL (160-400); Red Blood Count 4.18 X10*6/uL (4.60-5.80); Red Cell Distribution Width 12.7 % (11.0-16.0); White Blood Count 7.2 X10*3/uL (4.8-10.8)
[2024-01-04 11:47] LABS: Prothrombin Time 11.6 SEC (11.1-13.3)
[2024-01-04 11:58] LABS: Ethanol < 10 mg/dL
[2024-01-04 12:01] LABS: Alanine Aminotransferase 17 U/L (0-40); Albumin Level 3.5 g/dL (3.5-5.0); Alkaline Phosphatase 61 U/L (39-117); Anion Gap 12 (12-20); Aspartate Amino Transferase 24 U/L (5-37); Bilirubin Direct 0.2 mg/dL (0.0-0.5); Bilirubin Total 0.6 mg/dL (0.0-1.0); Blood Urea Nitrogen 14 mg/dL (9-16); Calcium 8.8 mg/dL (8.4-10.2); Carbon Dioxide 27 mmol/L (22-29); Chloride 107 mmol/L (96-108); Creatinine Clr Calc Pharmacy 94.7; Estimated Glomerular Filt Rate > 60; Glucose Random 80 mg/dL (60-115); Magnesium 1.4 mg/dL (1.6-2.6); Potassium 4.5 mmol/L (3.3-5.1); Sodium 141 mmol/L (135-145); Total Protein 5.7 g/dL (6.5-8.0)
[2024-01-04 12:10] LABS: Troponin-I High Sensitivity < 2.7 ng/L (<3.5-35.0)
[2024-01-04 12:52] VITALS: BP 132/64; PULSE 59
--- NOTE | 2024-01-04 12:54 | PC.NURSE ---
pt a&o x4, pleasant, calm, and cooperative. 20G IV placed to LAC. pt reporting right sided rib/chest pain as well as right knee pain. pt given ice pack for right eye swelling. pt at bedside. call fish within reach. rr even/unlabored. plan of care ongoing.
[2024-01-04 12:55] VITALS: BP 129/63; PULSE 69
[2024-01-04 12:56] VITALS: BP 108/79; PULSE 54
[2024-01-04] MEDS: Magnesium Sulfate/H2O 2 GM/50 ML PIGGYBACK IV (13:06)
[2024-01-04] MEDS: iohexoL 350 MG/ML 100 ML INFUS..BTL IV (13:26)
[2024-01-04] MEDS: ondansetron HCL 4 MG/2 ML VIAL IVPUSH (13:37)
[2024-01-04] MEDS: Morphine Sulfate 4 MG/ML CARTRIDGE IVPUSH (13:40)
[2024-01-04 13:52] LABS: Appearance Urine Clear; Color Urine Yellow; Glucose Urine UA Negative (Negative); Leukocyte Esterase Urine Negative (Negative); Nitrite Urine Negative (Negative); Urine Blood Negative (Negative); Urine Ketones Negative (Negative); Urine Protein Negative (Neg-Trace)
[2024-01-04 14:02] LABS: Amphetamine Screen Urine Not Detected (Not Detect); Barbiturates, Urine Not Detected (Not Detect); Benzodiazepines Screen Urine Not Detected (Not Detect); Cannabinoid Screen Urine POSITIVE (Not Detect); Cocaine Screen Urine Not Detected (Not Detect); Fentanyl, urine Not Detected (Not Detect); Opiate Screen Urine Not Detected (Not Detect); Phencyclidine Screen Urine Not Detected (Not Detect)
[2024-01-04] MEDS: Amoxicillin/Potassium Clav 875 MG TABLET PO (15:37)
--- NOTE | 2024-01-04 15:49 | PC.NURSE ---
patient ambulated around unit, patient walked with steady gait. ED provider aware
[2024-01-04 16:43] VITALS: BP 133/85; PULSE 64; RESP 14; TEMP 36.4; O2SAT 97
== END 2024-01-04 17:02 | disposition home or self-care (01) ==
PROVIDERS: Physician Assistant; Emergency Provider Emergency Medicine Emergency Medical Services; PCP Internal Medicine
DX: S02.31XA Fracture of orbital floor, right side, initial encounter for closed fracture (principal); H11.31 Conjunctival hemorrhage, right eye; S20.211A Contusion of right front wall of thorax, initial encounter; S80.01XA Contusion of right knee, initial encounter; S00.11XA Contusion of right eyelid and periocular area, initial encounter; S00.83XA Contusion of other part of head, initial encounter; W01.198A Fall on same level from slipping, tripping and stumbling with subsequent striking against other object, initial encounter; R10.11 Right upper quadrant pain; I10 Essential (primary) hypertension; E78.2 Mixed hyperlipidemia; B19.10 Unspecified viral hepatitis B without hepatic coma; F12.90 Cannabis use, unspecified, uncomplicated; Z86.718 Personal history of other venous thrombosis and embolism; Z79.02 Long term (current) use of antithrombotics/antiplatelets; Z79.01 Long term (current) use of anticoagulants; Z79.899 Other long term (current) drug therapy; Y93.89 Activity, other specified; Y92.018 Other place in single-family (private) house as the place of occurrence of the external cause; Y99.9 Unspecified external cause status
CPT/HCPCS: 36415; 70450; 70486; 71260; 72125; 73564; 80048; 80076; 80307; 81003; 83735; 84484; 85025; 85610; 93005; 96365; 96366; 96375; 99285; J2270; J2405; J3475; Q9967

== ENCOUNTER → 2024-01-04 11:06 | Outpatient (BNV) | payer MEDICARE, SELFPAY | PROVIDERS: Emergency Provider Emergency Medicine Emergency Medical Services; PCP Internal Medicine; Visit Provider Internal Medicine Cardiovascular Disease | DX: R55 Syncope and collapse (principal) | CPT/HCPCS: 93010 ==

== ENCOUNTER 2024-01-27 09:21 | Outpatient (AMB) | payer OTHER, SELFPAY ==
--- NOTE | 2024-01-27 10:04 | A.OFFPC_ITS ---
Vital Signs 01/27/24 10:07 Height 5 ft 9 in Weight 187 lb BMI 27.6 BP 96/60 Blood Pressure Location Lt brachial Position Sitting Pulse 75 Pulse Source Pulse Oximeter Pulse Oximetry (%) 95 Oxygen Delivery Method Room Air Intake Visit Reasons: 4 Month follow up Intake Note: Pt is here today for his 4mo. f/u Allergies No Known Allergies [No Known Allergies*] Allergy (Verified 01/27/24 10:33) Medication List - Last Reconciled 01/27/24 by Luiza Johnson MD allopurinol 300 mg PO DAILY alprazolam 0.25 mg (1/2 x 0.5 mg) PO DAILY PRN amlodipine 5 mg PO DAILY atorvastatin 10 mg PO DAILY escitalopram oxalate 20 mg PO DAILY folic acid 1 mg PO DAILY losartan 25 mg PO DAILY 90 days morphine 15 mg PO Q6H PRN omeprazole 20 mg orally Take Tuesday, Tuesday, Tuesday; sucralfate 1 g PO BEDTIME terbinafine HCl mg PO Tobacco use date assessed: 01/27/24 HPI 4 Month follow up HPI Details 73-year-old male with a history of GERD, alcohol use disorder, DVT, hepatitis-B,, IBS, insomnia, anxiety, hyperlipidemia, hypertension, gout here today for follow-up after recent ER visit. He had a fall and sustained Closed blow-out fracture of right orbit, Scleral hemorrhage of right eye, Chest wall contusion, and Contusion of knee, right. CT scan of the face did reveal a blowout fracture but no obvious entrapment of the patient's extraocular muscles . CT head, cervical spine and chest did not reveal any acute fractures , right knee x-ray also revealed no acute fractures. He was prescribed Augmentin 875/125 mg q.12 hours x7 days prophylactically to prevent infection, advised to use natural tears 2 drops every hours in his right eye secondary to the scleral hem atoma, which has now resolved He was prescribed morphine 15 mg/tab, 1 pill every 6 hours as needed for pain, which he has been taking only as needed for severe pain .He has been seen and evaluated by Dr. Farnsworth . He has been feeling well at present time, with almost complete resolution of his periorbital hematoma and bruising in his chest and knee. Denies any headache, no chest pain, no knee pain, no changes in vision.. [facility] Medical History Thiamine deficiency Vitamin D deficiency Chronic gastroesophageal reflux disease Obesity (BMI 30.0-34.9) Hepatic encephalopathy Alcohol use disorder Hyperammonemia Chronic deep vein thrombosis (DVT) of distal vein of right lower extremity History of hepatitis B Varicose vein of leg Pain in joint, foot, left Lower leg DVT (deep venous thromboembolism), acute H/O irritable bowel syndrome Insomnia Anxiety Mixed dyslipidemia HTN (hypertension) Gout Impaired fasting glucose Surgical History History of esophagogastroduodenoscopy (EGD) H/O varicose vein stripping Hx of colonoscopy Status post rotator cuff surgery S/P lumbar microdiscectomy Family History Mother Varicose vein of leg Father No problems noted. Brother No problems noted. Brother No problems noted. Son No problems noted. Son No problems noted. Social History Household Members: Spouse Housing: House Are you a primary child care education coordinator to a significant other at home: No Do you presently have visiting nurse or other home services: No Alcohol intake: former Patient Tobacco Use Status: Never used Tobacco Tobacco use type: Cigar e-Cigarette/Vaping Use: Never Used Substance Use Type: Marijuana Advance Directives Date on File: 04/26/23 Current occupational status: retired Cognitive needs: No Hearing needs: No Vision needs: Yes Questionnaire PHQ-9 Over the last 2 weeks, how often have you been bothered by any of the following problems? 1. Little interest or pleasure in doing things: not at all 2. Feeling down, depressed, or hopeless: not at all 3. Trouble falling or staying asleep, or sleeping too much: not at all 4. Feeling tired or having little energy: not at all 5. Poor appetite or overeating: not at all 6. Feeling bad about yourself - or that you are a failure or have let yourself or your family down: not at all 7. Trouble concentrating on things, such as reading the newspaper or watching television: not at all 8. Moving or speaking so slowly that other people could have noticed. Or the opposite - being so fidgety or restless that you have been moving around a lot more than usual: not at all 9. Thoughts that you would be better off or of hurting yourself in some way: not at all Total score: 0 Depression Screening Interpretation: Negative Depression Screening Done: Yes 12079 - PHQ-9 Billing: Yes Source: Developed by Drs. Max Pollard, Steven Wilkes and colleagues, with an educational winsome from [employer]. Thrive Questionnaire Date Thrive assessed: 01/27/24 I am a: Patient What is your living situation today?: I have a steady place to live Within the past 12 months, did the food you bought not last and you didn't have the money to get more?: Never true Within the past 12 months, did you worry whether your food would run out before you got money to buy more?: Never true Do you have trouble paying for medicines?: No Do you have trouble paying your heating and electricity bill?: No Do you have trouble taking care of your child, family member or friend?: No Do you have trouble with day-to-day activities such as bathing, preparing meals, shopping, managing finances, etc.?: No Are you currently unemployed and looking for a job?: No Are you interested in more education?: No THRIVE Score: 0 AUDIT C Alcohol Use Questionnaire (AUDIT-C) 1. How often do you have a drink containing alcohol?: Never Total Score: 0 MARY-7 AMB Questionnaire MARY-7 Date MARY - 7 assessed: 01/27/24 Feeling nervous, anxious, or on edge: 1 = Several days Not being able to stop or control worryin = Several days Worrying too much about different things: 0 = Not at all Trouble relaxin = Not at all Being so restless that it is hard to sit still: 1 = Several days Becoming easily annoyed or irritable: 0 = Not at all Feeling afraid as if something awful might happen: 0 = Not at all Total MARY-7 score (0-4 normal; 5-9 mild; 10-14 moderate; 15-21 severe): 3 Source: Developed by Siobhan Larson. Jadon, Steven Mirza and colleagues, with an educational winsome from [employer]. MARY-7 Assessment Billing MARY-7 Assessment Tool: MARY-7 Assessment 26961 Review of Systems Const Denies body aches, Denies fatigue and Denies headache(s) Eyes Reports no additional complaints ENT Reports no additional complaints and Denies headache(s) Card Reports no additional complaints Resp Reports no additional complaints GI Denies abdominal pain, Denies belching, Denies melena, Denies bloating, Denies change in bowel habits, Denies excessive flatus, Denies dyspepsia, Denies heartburn, Denies diarrhea, Denies loose stools, Denies nausea and Denies vomiting Musc Reports no additional complaints Neuro Reports no additional complaints and Denies headache(s) Psych Reports no additional complaints Endo Reports no additional complaints and Denies fatigue Bassem/Lymph Reports no additional complaints Physical exam (Primary Care) Vital Signs: Last Vital Signs Pulse 75 01/27/24 10:07 BP 96/60 01/27/24 10:07 Pulse Ox 95 01/27/24 10:07 Oxygen Delivery Method Room Air 01/27/24 10:07 BMI result Body Mass Index 27.6 Tobacco/Smoking Status: Tobacco use Status Tobacco use date assessed 01/27/24 01/27/24 10:11 Patient Tobacco Use Status Never used Tobacco 01/27/24 10:07 Tobacco use type Cigar 01/27/24 10:07 e-Cigarette/Vaping Use Never Used 01/27/24 10:07 PHQ-9: PHQ-9 Score PHQ-9: Total score 0 01/27/24 10:33 Depression Screening Interpretation: Negative Thrive Assessment: Date of Thrive Assessment Date Thrive assessed 01/27/24 01/27/24 10:12 Const General: comfortable, no acute distress, alert and Physically active Nutritional Appearance: overweight Orientation/consciousness: patient oriented x3 HENMT Head: Yes normocephalic and Yes atraumatic Ears: external ears normal General nose exam: Normal external nose present Face and sinus: Yes sinuses nontender and Yes face symmetric Mouth: Normal oral and palatal mucosa present, oropharynx normal and moist mucous membranes Eyes General: appearance normal, both eyes and all related structures Periorbital: periorbital findings normal Eyelids: Yes eyelids normal Conjunctivae: conjunctivae normal Sclerae: sclerae normal Pupils: Equal, round and reactive pupils present EOM: EOMs intact bilaterally Neck Neck: Yes full ROM, Yes no lymphadenopathy and Yes supple Chest Chest palpation & inspection: normal inspection of the chest, normal palpation of entire chest wall and no tenderness Resp Auscultation: clear to auscultation bilaterally Cardio Rate: regular rate Rhythm: regular rhythm Heart sounds: S1 normal heart sound present and S2 normal heart sound present Skin General skin exam: no rashes or lesions noted Neuro General: patient oriented x3, gait normal, tone normal, moves all extremities, Normal light touch and pain sensation and no focal motor deficits Cranial nerves: Yes Equal, round and reactive pupils present Cognition (Neuro): normal cognition Gait exam (Neuro): Normal gait present Assessment and Plan Assessment & Plan (1) Closed blow-out fracture of right orbit: Code(s): S02.31XA - Fracture of orbital floor, right side, initial encounter for closed fracture Qualifiers: Encounter type: subsequent encounter Fracture healing: with routine healing Qualified Code(s): S02.31XD - Fracture of orbital floor, right side, subsequent encounter for fracture with routine healing Plan: Healing well, no vision changes, seen by ophthalmology, patient currently taking morphine 15 mg/tablet to take 1 tablet every 6 hours, as needed only for severe pain., 10 tabs with nor further refill (2) Contusion of knee, right: Code(s): S80.01XA - Contusion of right knee, initial encounter Qualifiers: Encounter type: subsequent encounter Qualified Code(s): S80.01XD - Contusion of right knee, subsequent encounter Plan: Healing well (3) HTN (hypertension): Code(s): I10 - Essential (primary) hypertension Qualifiers: Hypertension type: primary hypertension Qualified Code(s): I10 - Essential (primary) hypertension Plan: Blood pressure noted to be lower than usual. Patient with denies any headache, no lightheadedness, no chest pain, shortness of breath or gait instability Continue with losartan 25 mg daily and amlodipine 5 mg daily (4) Anxiety: Code(s): F41.9 - Anxiety disorder, unspecified Plan: Refill sent for alprazolam take only as needed acute anxiety attack. Patient cautioned not to take this together with morphine tablets (5) Scleral hemorrhage of right eye: Code(s): H11.31 - Conjunctival hemorrhage, right eye Plan: Resolving, no changes in vision noted, seen and evaluated by Dr. Farnsworth Medications: Refilled alprazolam 0.25 mg (1/2 x 0.5 mg) PO DAILY PRN 20 tabs 0RF acute anxiety attacks morphine The patient may ask for partial fill; Partial Fill upon patient request. 15 mg PO Q6H PRN 10 tabs 0RF pain Coding Level of Care Code Est Pt Level 4 (18822) Diagnoses Closed blow-out fracture of right orbit with routine healing, subsequent encounter S02.31XD Encounter type: subsequent encounter Fracture healing: with routine healing Contusion of right knee, subsequent encounter S80.01XD Encounter type: subsequent encounter Primary hypertension I10 Hypertension type: primary hypertension Anxiety F41.9 Scleral hemorrhage of right eye H11.31 Additional Codes MARY-7 Assessment Billing - MARY-7 Assessment Tool: MARY-7 Assessment 19782 ([id number])
[2024-01-27 10:07] VITALS: BP 96/60; PULSE 75; O2SAT 95; BMI 27.6
== END 2024-01-27 11:13 | disposition home or self-care (01) ==
PROVIDERS: PCP Internal Medicine; Visit Provider Internal Medicine
DX: I10 Essential (primary) hypertension (principal); S02.31XD Fracture of orbital floor, right side, subsequent encounter for fracture with routine healing; S80.01XD Contusion of right knee, subsequent encounter; F41.9 Anxiety disorder, unspecified; H11.31 Conjunctival hemorrhage, right eye
CPT/HCPCS: 99214

== ENCOUNTER 2024-01-31 10:10 | Outpatient (REF) | payer MEDICARE, SELFPAY ==
[2024-01-31 14:17] LABS: PSA,Total (Free>4and<10) 0.69 ng/mL (0.00-4.00)
[2024-01-31 15:31] LABS: Alanine Aminotransferase 22 U/L (0-40); Anion Gap 13 (12-20); Aspartate Amino Transferase 26 U/L (5-37); Blood Urea Nitrogen 13 mg/dL (9-16); Carbon Dioxide 27 mmol/L (22-29); Chloride 106 mmol/L (96-108); Estimated Glomerular Filt Rate > 60; Glucose Fasting 87 mg/dL (60-99); Magnesium 1.4 mg/dL (1.6-2.6); Potassium 4.3 mmol/L (3.3-5.1); Sodium 142 mmol/L (135-145)
== END 2024-01-31 10:11 | disposition home or self-care (01) ==
LOC: HO.HMGCLDS 10:10
PROVIDERS: PCP Internal Medicine; Visit Provider Internal Medicine
DX: Z12.5 Encounter for screening for malignant neoplasm of prostate (principal); E66.9 Obesity, unspecified; E78.2 Mixed hyperlipidemia; I10 Essential (primary) hypertension; R73.01 Impaired fasting glucose; E83.42 Hypomagnesemia
CPT/HCPCS: 36415; 80048; 83735; 84153; 84450; 84460

== ENCOUNTER 2024-05-01 10:54 | Outpatient (AMB) | payer MEDICARE, SELFPAY ==
--- NOTE | 2024-05-01 11:11 | A.OFFVIS_ITS ---
Intake Vital Signs 05/01/24 11:23 Height 5 ft 9 in Weight 188 lb BMI 27.8 BP 110/74 Blood Pressure Location Rt brachial Position Sitting Pulse 63 Pulse Source Pulse Oximeter Pulse Oximetry (%) 94 Oxygen Delivery Method Room Air Intake Visit Reasons: SWV Intake Note: Pt is here today for his SWV Allergies No Known Allergies [No Known Allergies*] Allergy (Verified 05/01/24 11:38) Medication List - Last Reconciled 05/01/24 by Luiza Johnson MD allopurinol 300 mg PO DAILY alprazolam 0.25 mg (1/2 x 0.5 mg) PO DAILY PRN amlodipine 5 mg PO DAILY atorvastatin 10 mg PO DAILY escitalopram oxalate 20 mg PO DAILY folic acid 1 mg PO DAILY losartan 25 mg PO DAILY 90 days magnesium oxide 400 mg PO DAILY omeprazole 20 mg orally Take Tuesday, Tuesday, Tuesday; sucralfate 1 g PO BEDTIME terbinafine HCl mg PO HPI HPI Comments History of Present Illness Details SWV ? 73-year-old male here today for his subsequent annual wellness visit. He is due for her screening colonoscopy this year, already scheduled for 07/10/2024 due to previous history of tubular adenoma removed. Up-to-date with his prostate cancer screening and diabetes mellitus screening done 01/31/2024 with normal findings. Last lipids screening was done and 10/24/2023 with normal findings except for slightly elevated triglycerides. He is up-to-date with all his COVID vaccination, gets yearly flu shot and up-to-date with his pneumococcal vaccination, recommended to get shingles vac cine, which she can get from the pharmacy. ? Medical / Social History Reviewed? Past Medical History ?Yes . ? Heath of Care / Care Team list updated ?Yes . ? Surgical/Hospitalization History ?Yes . ? Current Medications (including OTC and supplements) ?Yes . ? Family History ?Yes . ? Tobacco Control form ?Yes . ? AUDIT-C (Alcohol use) form ?Yes . ? Illicit drug use in Social History ?Yes . ? Current diagnosis of depression? ?No ? Appropriate PHQ2/PHQ9 completed ?Yes . ? Data entered by ?Hosted Services Analyst and reviewed by provider ? Fall Risk ? Fall History? Have you had any falls with injury in the past year? ?No . ? Have you had two or more falls in the past year? ?No . ? Fall Risk Assessment: ?No falls in the past year . ? HRA filled out by the patient, reviewed by Provider and scanned. ?SWV ? Balance? Romberg ?Yes . ? Tandem walk ?Yes . ? Walk and Turn ?Yes . ? Rise from sit to stand ?Yes . ?Vision? Corrective lens ?Yes, reading glasses ? Vision screen ?overdue, patient states that he usually goes to [facility] ?Hearing? Whisper test ?pass . ?Written Plan?Completed. See Patient Documents.? [facility] Medical History Onychomycosis of left great toe Thiamine deficiency Vitamin D deficiency Chronic gastroesophageal reflux disease Obesity (BMI 30.0-34.9) Hepatic encephalopathy Alcohol use disorder Hyperammonemia Chronic deep vein thrombosis (DVT) of distal vein of right lower extremity History of hepatitis B Varicose vein of leg Pain in joint, foot, left Lower leg DVT (deep venous thromboembolism), acute H/O irritable bowel syndrome Insomnia Anxiety Mixed dyslipidemia HTN (hypertension) Gout Impaired fasting glucose Surgical History History of esophagogastroduodenoscopy (EGD) H/O varicose vein stripping Hx of colonoscopy Status post rotator cuff surgery S/P lumbar microdiscectomy Family History Mother Varicose vein of leg Father No problems noted. Brother No problems noted. Brother No problems noted. Son No problems noted. Son No problems noted. Social History Household Members: Spouse Housing: House Are you a primary director of managed care to a significant other at home: No Do you presently have visiting nurse or other home services: No Alcohol intake: former Patient Tobacco Use Status: Never used Tobacco Tobacco use type: Cigar e-Cigarette/Vaping Use: Never Used Substance Use Type: Marijuana Advance Directives Date on File: 04/26/23 Current occupational status: retired Cognitive needs: No Hearing needs: No Vision needs: Yes Questionnaire Medicare Wellness Checkup [age] What gender do you identify with?: male During the past 4 weeks, how much have you been bothered by emotional problems such as feeling anxious, depressed, irritable, sad or downhearted, and blue?: slightly During the past 4 weeks, has your physical & emotional health limited your social activities with family, friends, neighbors, or groups?: not at all During the past 4 weeks, how much bodily pain have you generally had?: no pain During the past 4 weeks, was someone available to help you if you needed & wanted help?: yes, as much as I wanted During the past 4 weeks, what was the hardest physical activity you could do for at least 2 minutes?: moderate Can you get to places out of walking distance without help? (For eg., can you travel alone on buses, taxis or drive your car?): Yes Can you go shopping for groceries or clothes without someone's help?: Yes Can you prepare your own meals?: Yes Can you do your housework without help?: Yes Because of any health problems, do you need the help of another person with your personal care needs such as eating, bathing, dressing or getting around the house?: No Can you handle your own money without help?: Yes During the past 4 weeks, how would you rate your health in general?: very good During the past 4 weeks how have things been going for you?: very well; could hardly better Are you having difficulties driving your car?: no Do you always fasten your seat belt when you are in a car?: yes, usually During past 4 weeks, have you been bothered by the following: never: Falling or dizzy when standing up, Sexual problems?, Trouble eating well?, Teeth or denture problems? and Problems using the telephone? and seldom: Tiredness or fatigue? Have you fallen 2 or more times in the past year?: No Are you afraid of falling?: No Are you a smoker?: no During the past 4 weeks, how many drinks of wine, beer, or other alcoholic suyapa erages did you have?: 2-5 drinks per week Do you exercise for about 20 minutes 3 or more times a week?: yes, most of the time Have you been given information to help with the following?: no: Hazards in your house that might hurt you? and no: Keeping track of your medications? How often do you have trouble taking medicines the way you have been told to take them?: I always take medicine as prescribed How confident are you that you can control & manage most of your health problems?: very confident What is your race?: White Mini Mental State Exam (MMSE) Orientation What is the (year) (season) (date) (day) (month)?: year (2023), season (Spring), date (05/01/2024), day (Tuesday) and month (April) Where are we (state) (county) (town or city) (hospital) (floor)?: state ([place]), county ([place]), town or city ([place]) and hospital/clinic ([facility]) Score Score: 9 Activity of Daily Living Bathing - sponge bath, tub bath or shower: receives no assistance (gets in/out by self, if usual bathing means Dressing - getting clothes from closets & drawers, including inner/outer garments & fasteners.: gets clothes & gets completely dressed without help Toileting - going to the 'toilet room' for urine/bowel elimination & cleaning self/arranging clothes: goes to toilet room, cleans self, arranges clothes without help Transfer: moves in & out of bed and chair without help (may use support object) Continence: controls urination/bowel movements completely by self Feeding: feeds self without help Total Score: 0 Information obtained from: patient Using telephone: independent Traveling: independent Shopping: independent Preparing meals: independent Housework: independent Taking medicine: independent Managing money: independent PHQ-9 Over the last 2 weeks, how often have you been bothered by any of the following problems? 1. Little interest or pleasure in doing things: not at all 2. Feeling down, depressed, or hopeless: not at all 3. Trouble falling or staying asleep, or sleeping too much: not at all 4. Feeling tired or having little energy: not at all 5. Poor appetite or overeating: not at all 6. Feeling bad about yourself - or that you are a failure or have let yourself or your family down: not at all 7. Trouble concentrating on things, such as reading the newspaper or watching television: not at all 8. Moving or speaking so slowly that other people could have noticed. Or the opposite - being so fidgety or restless that you have been moving around a lot more than usual: not at all 9. Thoughts that you would be better off or of hurting yourself in some way: not at all Total score: 0 Depression Screening Interpretation: Negative Depression Screening Done: Yes 53706 - PHQ-9 Billing: Yes Source: Developed by Drs. Max Pollard, Siobhan Diop, Steven Mirza and colleagues, with an educational winsome from [employer]. Physical Exam Vital Signs: Last Vital Signs Pulse 63 05/01/24 11:23 BP 110/74 05/01/24 11:23 Pulse Ox 94 05/01/24 11:23 Oxygen Delivery Method Room Air 05/01/24 11:23 BMI result Body Mass Index 27.8 Assessment & Plan Assessment & Plan (1) Encounter for subsequent annual wellness visit (AWV) in Medicare patient: Code(s): Z00.00 - Encounter for general adult medical examination without abnormal findings Plan: Go wellness checklist reviewed, discussed with patient and updated. Copy given to patient (2) HTN (hypertension): Code(s): I10 - Essential (primary) hypertension Qualifiers: Hypertension type: primary hypertension Qualified Code(s): I10 - Essential (primary) hypertension Plan: Blood pressure is controlled, continue on amlodipine 5 mg daily and losartan 25 mg daily (3) Mixed dyslipidemia: Code(s): E78.2 - Mixed hyperlipidemia Plan: Continue with atorvastatin 10 mg daily (4) Onychomycosis of left great toe: Comment: Currently sees Dr. Lorrie saenz and on pulse therapy with terbinafine Code(s): B35.1 - Tinea unguium Plan: Currently on terbinafine, followed by Dr. Saenz (5) Chronic gastroesophageal reflux disease: Code(s): K21.9 - Gastro-esophageal reflux disease without esophagitis Plan: Takes omeprazole as needed (6) Anxiety: Code(s): F41.9 - Anxiety disorder, unspecified Plan: Refill prescription sent for alprazolam 0.25 mg taken once a day only as needed for acute anxiety attacks, continue escitalopram 20 mg daily (7) Impaired fasting glucose: Code(s): R73.01 - Impaired fasting glucose Plan: Reinforced importance of following healthy diet and getting regular exercise. Orders: Orders Comprehensive [place]. Panel Fast 05/01/24 B35.1 - Tinea unguium, E78.2 - Mixed hyperlipidemia, I10 - Essential (primary) hypertension, R73.01 - Impaired fasting glucose Lipid Panel 05/01/24 B35.1 - Tinea unguium, E78.2 - Mixed hyperlipidemia, I10 - Essential (primary) hypertension, R73.01 - Impaired fasting glucose Uric Acid 05/01/24 B35.1 - Tinea unguium, E78.2 - Mixed hyperlipidemia, I10 - Essential (primary) hypertension, R73.01 - Impaired fasting glucose Magnesium 05/01/24 B35.1 - Tinea unguium, E78.2 - Mixed hyperlipidemia, I10 - Essential (primary) hypertension, R73.01 - Impaired fasting glucose Medications: Refilled alprazolam 0.25 mg (1/2 x 0.5 mg) PO DAILY PRN 20 tabs 0RF acute anxiety attacks Quality Reporting (2019) Depression/Bipolar (159/160/161/177) PHQ-9: Total score: 0 Coding Level of Care Code Medicare Subsequent (G0439) Diagnoses Encounter for subsequent annual wellness visit (AWV) in Medicare patient Z00.00 Primary hypertension I10 Hypertension type: primary hypertension Mixed dyslipidemia E78.2 Onychomycosis of left great toe B35.1 Chronic gastroesophageal reflux disease K21.9 Anxiety F41.9 Impaired fasting glucose R73.01 CPT Codes Advance Care Planning - Advance Care Planning discussion: On file, no changes ([id number]) Advance Care Planning - Time spent: 1-15 minutes, on File ([id number]) Advance Care Planning Advance Care Planning discussion: On file, no changes Date of discussion: 04/26/23 Who was present: Patient Forms completed: Health Care Proxy Time spent: 1-15 minutes, on File Actual minutes spent: 15
[2024-05-01 11:23] VITALS: BP 110/74; PULSE 63; O2SAT 94; BMI 27.8
== END 2024-05-01 12:00 | disposition home or self-care (01) ==
PROVIDERS: PCP Internal Medicine; Visit Provider Internal Medicine
DX: Z00.00 Encounter for general adult medical examination without abnormal findings (principal); I10 Essential (primary) hypertension; E78.2 Mixed hyperlipidemia; B35.1 Tinea unguium; K21.9 Gastro-esophageal reflux disease without esophagitis; F41.9 Anxiety disorder, unspecified
CPT/HCPCS: 1123F; G0439

== ENCOUNTER 2024-05-21 07:45 | Day surgery (SDC) | payer MEDICARE, SELFPAY ==
[2024-05-21 07:56] VITALS: BP 123/96; PULSE 50; RESP 16; TEMP 36.6; O2SAT 97; BMI 27.1
--- NOTE | 2024-05-21 08:06 | HO.ANESPROP2 ---
[facility] Active Problems Active Problems: All Active Problems Onychomycosis of left great toe (Acute) Vitamin D deficiency (Acute) Chronic gastroesophageal reflux disease (Acute) Obesity (BMI 30.0-34.9) (Acute) Varicose vein of leg (Acute) Insomnia (Acute) Anxiety (Acute) Mixed dyslipidemia (Acute) HTN (hypertension) (Acute) Impaired fasting glucose (Acute) Past Medical History Medical History Onychomycosis of left great toe Thiamine deficiency Vitamin D deficiency Chronic gastroesophageal reflux disease Obesity (BMI 30.0-34.9) Hepatic encephalopathy Alcohol use disorder Hyperammonemia Chronic deep vein thrombosis (DVT) of distal vein of right lower extremity History of hepatitis B Varicose vein of leg Pain in joint, foot, left Lower leg DVT (deep venous thromboembolism), acute H/O irritable bowel syndrome Insomnia Anxiety Mixed dyslipidemia HTN (hypertension) Gout Impaired fasting glucose Family History Family History Mother Varicose vein of leg Father No problems noted. Brother No problems noted. Brother No problems noted. Son No problems noted. Son No problems noted. Family history of problems with anesthesia: No Surgical History Surgical History History of esophagogastroduodenoscopy (EGD) H/O varicose vein stripping Hx of colonoscopy Status post rotator cuff surgery S/P lumbar microdiscectomy History of Problems with Anesthesia: No Social History Social History Household Members: Spouse Housing: House Are you a primary physician assistant primary care to a significant other at home: No Do you presently have visiting nurse or other home services: No Alcohol intake: former Patient Tobacco Use Status: Current everyday Tobacco user Tobacco use type: Cigar e-Cigarette/Vaping Use: Never Used Use of substances other than those prescribed or required for medical reasons: Yes Substance Use Type: Marijuana Substance Use Frequency: Daily Are you DNR?: No Advance Directives: No Advance Directives Information Provided: Yes Advance Directives Date on File: 04/26/23 Current occupational status: retired Cognitive needs: No Hearing needs: No Vision needs: Yes Meds Allergies Allergy/AdvReac Type Severity Reaction Status Date / Time No Known Allergies Allergy Verified 05/01/24 11:38 [No Known Allergies*] Home Medications ?Medication ?Instructions ?Recorded ?Confirmed ?Last Taken ?Type sucralfate 1 gram tablet 1 g PO BEDTIME 10/24/23 01/27/24 Unknown History terbinafine HCl 250 mg tablet mg PO 12/23/23 01/27/24 Unknown History magnesium oxide 400 mg PO DAILY 02/02/24 Unknown History Exam Height,Weight and Vital Signs: Height 5 ft 9 in Weight 83.37 kg Last Vital Signs Temp 97.8 F 05/21/24 07:56 Pulse 50 05/21/24 07:56 Resp 16 05/21/24 07:56 BP 123/96 H 05/21/24 07:56 Pulse Ox 97 05/21/24 07:56 O2 Del Method Room Air 05/21/24 07:56 Airway Mallampati Class: II TM Dist: >3cm Neck ROM: Full Assessment and Plan Assessment Anesthesia Assessment: Anesthesia Plan Discussed and Chart Reviewed Final Anesthetic Review Family History of Problems with Anesthesia: No History of Problems with Anesthesia: No NPO: Yes ASA Class: III Final Preanesthetic Review: No Changes in Pt Med Stat, Meds/Allgs Chart Reviewed, Consent Obtained/Reviewed and Anes Risks/Benef Reviewed Patient Risk: Intermediate Procedure Risk: Low Anesthetic Plan Anesthetic Plan: TIVA Disposition: Standard PACU
--- NOTE | 2024-05-21 08:12 | P.HPSUR_ITS ---
Pre-Procedural Eval Section A - 24 Hr Update-Section A only Date of Service: 05/21/24 The patient is an INPATIENT: No The patient has been examined within 24 hours of the surgical procedure. The History & Physical has been completed within 30 days and I have reviewed it.: No Section B - Complete if H&P > 30 days Chief Complaint: screening Relevant Family History (Specify if Yes): No Relevant Social History: None Present Medications: see Short Stay Collaborative assessment Medical History: Significant History (Chronic gastroesophageal reflux disease Ob esity (BMI 30.0-34.9) Hepatic encephalopathy Alcohol use disorder Hyperammonemia Chronic deep vein thrombosis (DVT) of distal vein of right lower extremity History of hepatitis B Varicose vein of leg Pain in joint, foot, left Lower leg DVT (deep venous throm) History of Previous Operations: Relevant previous surgery/procedure and date(s) (History of esophagogastroduodenoscopy (EGD) H/O varicose vein stripping Hx of colonoscopy Status post rotator cuff surgery S/P lumbar microdiscectomy) Allergies: Allergies Allergy/AdvReac Type Severity Reaction Status Date / Time No Known Allergies Allergy Verified 05/01/24 11:38 [No Known Allergies*] Review of Systems Sugical H&P ROS: Negative: Constitution, Cardiovascular, Respiratory and Gastrointestinal Exam Surgical H&P Exam: Normal: Heart, Normal: Lungs, Normal: Extremities and Normal: Abdomen Plan Diagnosis/Plan: Unchanged I have reviewed the history and physical and performed a pertinent physical examination on my patient. No changes have occurred unless specified. Time Spent With Patient Time: Total time managing care of this patient today ____ minutes.
[2024-05-21] MEDS: Lactated Ringers 1,000 ML 100 ML IVCONT (08:21)
--- NOTE | 2024-05-21 09:12 | P.OPN-COLO_ITS ---
Colonoscopy Operative Note Operative Note Date of Service: 05/21/24 Narrative: COLONOSCOPY TILL CECUM Pre-op diagnosis: Surveillance for colon polyps. (Of note pt had an 8 mm tubular adenoma removed in 2013 and a negative colonoscopy in [address] Garcia) Post-op diagnosis:? Diverticulosis, hemorrhoids Endoscopist:? Jelani Diego MD Anesthesia:?MAC Consent: Indications for the procedure and potential complications of bleeding, perforation, reaction to medications and missed diagnosis were discussed with the patient and informed consent was obtained. Instrument: Olympus CF H 190 L variable stiffness adult colonoscope Monitoring: Vital signs and clinical assessment, intermittent blood pressure monitoring, continuous EKG monitoring, Pulse oximetry and Carbon Dioxide monitoring were done throughout the procedure. Please see anesthesia flowsheet. Colon withdrawl time was 20 minutes. Procedure: The patient was placed in the left lateral decubitis position and pre-procedure medications were administered. After a digital rectal examination of the ano-rectum, the video colonoscope was inserted into the rectum and advanced through the colon to the cecum. The colonoscope was slowly withdrawn in a retrograde panoramic fashion and the colon mucosa was carefully examined including a retroflexed view of the rectum. Findings and interventions are described below. Procedure Difficulty: without difficulty Findings: Terminal Ileum: Not evaluated Cecum: Normal Ascending Colon: Scattered moderate diverticulosis throughout the entire colon Transverse Colon: Scattered moderate diverticulosis throughout the entire colon Descending Colon: Scattered moderate diverticulosis throughout the entire colon Sigmoid Colon: Moderate diverticulosis Rectum: Normal Ano-rectum: Moderate internal hemorrhoids Colon preparation: Good after copious irrigation. [place] Bowel Preparation Scale Right colon; 2 Transverse colon: 2 Left colon; 2 (0 = Unprepared colon segment with mucosa not seen due to solid stool that cannot be cleared. 1 = Portion of mucosa of the colon segment seen, but other areas of the colon segment not well seen due to staining, residual stool and/or opaque liquid. 2 = Minor amount of residual staining, small fragments of stool and/or opaque liquid, but mucosa of colon segment seen well. 3 = Entire mucosa of colon segment seen well with no residual staining, small fragments of stool or opaque liquid) Impression and Post Procedure Diagnosis: Colonoscopy Findings: No polyps were detected Moderate diverticulosis seen in the entire colon Moderate hemorrhoids on retroflexed exam. Plan: Pt has a FU appointment on 06/04/24 with Dorothea Balbeuna NP Repeat Colonoscopy in 10 years if pt remains in stable health (Since pt has had 2 negative colonoscopies over the past 5 years. Above findings were reviewed with the patient and relevant handouts were given and the discharge area.
[2024-05-21 09:13] VITALS: BP 112/69; PULSE 58; RESP 18; TEMP 36.6; O2SAT 97
[2024-05-21 09:18] VITALS: BP 104/66; PULSE 66; RESP 18; O2SAT 97
[2024-05-21 09:23] VITALS: BP 112/73; PULSE 60; RESP 18; O2SAT 97
[2024-05-21 09:28] VITALS: BP 124/63; PULSE 60; RESP 18; TEMP 36.6; O2SAT 97
== END 2024-05-21 09:49 | disposition home or self-care (01) ==
PROVIDERS: PCP Internal Medicine; Visit Provider Internal Medicine Gastroenterology
PROC: 0DJD8ZZ Inspection of Lower Intestinal Tract, Via Natural or Artificial Opening Endoscopic (ICD-10-PCS; CPT 45378; principal; 2024-05-21 08:30)
DX: Z12.11 Encounter for screening for malignant neoplasm of colon (principal); Z86.010 Personal history of colon polyps; K57.30 Diverticulosis of large intestine without perforation or abscess without bleeding; K64.8 Other hemorrhoids; K21.9 Gastro-esophageal reflux disease without esophagitis; K58.2 Mixed irritable bowel syndrome; I10 Essential (primary) hypertension; E78.2 Mixed hyperlipidemia; E83.42 Hypomagnesemia; R73.01 Impaired fasting glucose; M10.9 Gout, unspecified; F10.90 Alcohol use, unspecified, uncomplicated; F17.290 Nicotine dependence, other tobacco product, uncomplicated; Z98.890 Other specified postprocedural states
CPT/HCPCS: G0105; J2704

== ENCOUNTER → 2024-05-21 07:45 | Outpatient (BNV) | payer MEDICARE, SELFPAY | PROVIDERS: PCP Internal Medicine; Visit Provider Internal Medicine Gastroenterology | DX: Z12.11 Encounter for screening for malignant neoplasm of colon (principal); Z86.010 Personal history of colon polyps; K57.30 Diverticulosis of large intestine without perforation or abscess without bleeding; K64.8 Other hemorrhoids | CPT/HCPCS: G0105 ==

== ENCOUNTER 2024-05-29 09:45 | Outpatient (REF) | payer MEDICARE, SELFPAY ==
[2024-05-29 13:34] LABS: Alanine Aminotransferase 21 U/L (0-40); Albumin Level 3.8 g/dL (3.5-5.0); Alkaline Phosphatase 83 U/L (39-117); Anion Gap 12 (12-20); Aspartate Amino Transferase 25 U/L (5-37); Bilirubin Total 0.7 mg/dL (0.0-1.0); Blood Urea Nitrogen 6 mg/dL (9-16); Calcium 9.3 mg/dL (8.4-10.2); Carbon Dioxide 26 mmol/L (22-29); Chloride 106 mmol/L (96-108); Cholesterol 156 mg/dL (<200); Estimated Glomerular Filt Rate > 60; Glucose Fasting 95 mg/dL (60-99); HDL Cholesterol 54 mg/dL (>40); LDL Cholesterol Calculated 51 mg/dL (<100); Magnesium 1.5 mg/dL (1.6-2.6); Potassium 3.8 mmol/L (3.3-5.1); Sodium 140 mmol/L (135-145); Total Protein 6.2 g/dL (6.5-8.0); Triglycerides 255 mg/dL (<150); Uric Acid 4.8 mg/dL (3.4-7.0)
== END 2024-05-29 09:46 | disposition home or self-care (01) ==
LOC: HO.HMGCLDS 09:45
PROVIDERS: PCP Internal Medicine; Visit Provider Internal Medicine
DX: B35.1 Tinea unguium (principal); R73.01 Impaired fasting glucose; I10 Essential (primary) hypertension; E78.2 Mixed hyperlipidemia
CPT/HCPCS: 36415; 80053; 80061; 83735; 84550

== ENCOUNTER 2024-06-04 09:02 | Outpatient (AMB) | payer MEDICARE, SELFPAY ==
--- NOTE | 2024-06-04 09:03 | MHC.OFFVIS ---
Vital Signs 06/04/24 09:08 Height 5 ft 9 in Weight 187 lb 6.287 oz BMI 27.7 BP 134/64 Blood Pressure Location Rt brachial Position Sitting Pulse 58 Pulse Source Pulse Oximeter Pulse Oximetry (%) 96 Oxygen Delivery Method Room Air Intake Visit Reasons: s/p colon Intake Note: Kelvin presents in office today for a scheduled post op FUV. CC;Pt denies any new complications or sx post op. Pt reports that he has remained stable and is here to discuss the results of their s/p. Pt has a couple of brief questions regarding the medication regimen he is on currently. Crossing Watchman Required: No Allergies No Known Allergies [No Known Allergies*] Allergy (Verified 06/04/24 09:04) HPI HPI s/p colon: Details: LAST VISIT Chronic gastroesophageal reflux disease Heartburn Hypomagnesemia IBS (irritable bowel syndrome) Diarrhea Screen for colon cancer Plan Continue avoiding dietary triggers. Staying upright for minimum 3 hours after meals discussed with patient. Low FODMAP diet as recommended before. Continue Prilosec on as-needed basis or Pepcid whichever works better for him. Patient will be scheduled for colonoscopy. Denies any issues with anesthesia in the past. No history of sleep apnea. Not on any anticoagulation medication. No cardiac or respiratory symptoms. What to expect before, during or after procedure discussed with patient. I will see him after the procedure, sooner on as needed basis. Patient is agreeable to this plan and verbalizes understanding of instructions. He was given the opportunity to ask questions and all questions answered. ? Thank you for allowing me to participate in his care Medications New bisacodyl (Dulcolax (bisacodyl)) take 4 tabs at noon the day before your colonoscopy 20 mg (4 x 5 mg) PO ONCE 1 day 4 tabs 0RF Z12.11 polyethylene glycol 3350 (Miralax) As directed by gastroenterology department at [facility] 238 grams PO ONCE 238 grams 0RF Z12.11 COLONOSCOPY Findings: Terminal Ileum: Not evaluated Cecum: Normal Ascending Colon: Scattered moderate diverticulosis throughout the entire colon Transverse Colon: Scattered moderate diverticulosis throughout the entire colon Descending Colon: Scattered moderate diverticulosis throughout the entire colon Sigmoid Colon: Moderate diverticulosis Rectum: Normal Ano-rectum: Moderate internal hemorrhoids Colon preparation: Good after copious irrigation. [place] Bowel Preparation Scale Right colon; 2 Transverse colon: 2 Left colon; 2 (0 = Unprepared colon segment with mucosa not seen due to solid stool that cannot be cleared. 1 = Portion of mucosa of the colon segment seen, but other areas of the colon segment not well seen due to staining, residual stool and/or opaque liquid. 2 = Minor amount of residual staining, small fragments of stool and/or opaque liquid, but mucosa of colon segment seen well. 3 = Entire mucosa of colon segment seen well with no residual staining, small fragments of stool or opaque liquid) Impression and Post Procedure Diagnosis: Colonoscopy Findings: No polyps were detected Moderate diverticulosis seen in the entire colon Moderate hemorrhoids on retroflexed exam. Plan: Repeat Colonoscopy in 10 years if pt remains in stable health (Since pt has had 2 negative colonoscopies over the past 5 years. TODAY'S VISIT Patient is here today for follow-up and to discuss colonoscopy results. Patient had no polyps, moderate diverticulosis seen in entire colon as well as moderate hemorrhoids. Patient denies any issues with the prep, anesthesia or procedure itself. Patient reports to be feeling well after the procedure. Patient is moving his bowels better now. No longer has diarrhea. Patient denies melena, hematochezia. Patient denies any dyspepsia, dysphagia or odynophagia. Patient reports to be doing well [facility] Medical History Onychomycosis of left great toe Thiamine deficiency Vitamin D deficiency Chronic gastroesophageal reflux disease Obesity (BMI 30.0-34.9) Hepatic encephalopathy Alcohol use disorder Hyperammonemia Chronic deep vein thrombosis (DVT) of distal vein of right lower extremity History of hepatitis B Varicose vein of leg Pain in joint, foot, left Lower leg DVT (deep venous thromboembolism), acute H/O irritable bowel syndrome Insomnia Anxiety Mixed dyslipidemia HTN (hypertension) Gout Impaired fasting glucose Surgical History History of esophagogastroduodenoscopy (EGD) H/O varicose vein stripping Hx of colonoscopy Status post rotator cuff surgery S/P lumbar microdiscectomy Family History Mother Varicose vein of leg Father No problems noted. Brother No problems noted. Brother No problems noted. Son No problems noted. Son No problems noted. Social History Household Members: Spouse Housing: House Are you a primary intensive care ambulance paramedic to a significant other at home: No Do you presently have visiting nurse or other home services: No Alcohol intake: former Patient Tobacco Use Status: Current everyday Tobacco user Tobacco use type: Cigar e-Cigarette/Vaping Use: Never Used Substance Use Type: Marijuana Advance Directives Date on File: 04/26/23 Current occupational status: retired Cognitive needs: No Hearing needs: No Vision needs: Yes Review of Systems Const Denies weight gain and Denies weight loss ENT Reports no additional complaints, Denies dysphagia and Denies odynophagia Card Reports no additional complaints Resp Reports no additional complaints GI Denies abdominal pain, Denies belching, Denies melena, Denies bloating, Denies change in bowel habits, Denies dysphagia, Denies excessive flatus, Denies dyspepsia, Denies heartburn, Denies diarrhea, Denies loose stools, Denies nausea, Denies odynophagia and Denies vomiting Reports no additional complaints Musc Reports no additional complaints Neuro Reports no additional complaints Psych Reports no additional complaints Endo Reports no additional complaints Physical Exam Vital Signs: Last Vital Signs Pulse 58 06/04/24 09:08 BP 134/64 06/04/24 09:08 Pulse Ox 96 06/04/24 09:08 Oxygen Delivery Method Room Air 06/04/24 09:08 BMI result Body Mass Index 27.7 Const General: healthy appearing, no acute distress and well developed Nutritional Appearance: well nourished Orientation/consciousness: patient oriented x3 Resp Effort & Inspection: normal respiratory effort, able to speak in complete sentences, no tracheal deviation and symmetric chest movement Auscultation: clear to auscultation bilaterally Cardio Rate: regular rate GI Inspection: Yes normal to inspection and No distended Palpation (GI): Soft to palpation, not firm, nontender and No hepatosplenomegaly present Auscultation: normal bowel sounds General: Yes no CVA tenderness Back/Spine/Pelvis Back: no CVA tenderness Skin General skin exam: elasticity normal, turgor normal and dry skin Neuro General: patient oriented x3 Psych Appearance: grossly normal Mental Status: mental status grossly normal Assessment & Plan Assessment & Plan (1) Chronic gastroesophageal reflux disease: Code(s): K21.9 - Gastro-esophageal reflux disease without esophagitis Category: Medical (2) IBS (irritable bowel syndrome): Code(s): K58.9 - Irritable bowel syndrome without diarrhea Qualifiers: Irritable bowel syndrome type: with both diarrhea and constipation Qualified Code(s): K58.2 - Mixed irritable bowel syndrome (3) Status post colonoscopy: Code(s): Z98.890 - Other specified postprocedural states Plan Colonoscopy in 10 years if health allows, sooner if clinically necessary. Patient can stop taking sucralfate. Reports that his bowels normalized now. Avoid dietary triggers and late night snacking. Staying upright for minimum 3 hours after meals discussed with patient. Patient will follow-up in our office on as needed basis. He is agreeable to this plan and verbalizes understanding of instructions. He was given the opportunity to ask questions and all questions answered. Thank you for allowing me to participate in his care Coding Level of Care Code Est Pt Level 3 (03102) Diagnoses Chronic gastroesophageal reflux disease K21.9 Irritable bowel syndrome with both constipation and diarrhea K58.2 Irritable bowel syndrome type: with both diarrhea and constipation Status post colonoscopy Z98.890 Time Spent (min) 30 Comment 20 minutes spent with patient and additional 10 minutes spent reviewing his records
[2024-06-04 09:08] VITALS: BP 134/64; PULSE 58; O2SAT 96; BMI 27.7
== END 2024-06-04 10:33 | disposition home or self-care (01) ==
PROVIDERS: PCP Internal Medicine; Visit Provider Nurse Practitioner Family
DX: K21.9 Gastro-esophageal reflux disease without esophagitis (principal); K58.2 Mixed irritable bowel syndrome; Z98.890 Other specified postprocedural states
CPT/HCPCS: 99213

== ENCOUNTER → 2024-06-04 09:02 | Outpatient (BNVA) | payer MEDICARE, SELFPAY | PROVIDERS: PCP Internal Medicine; Visit Provider Nurse Practitioner Family | DX: K21.9 Gastro-esophageal reflux disease without esophagitis (principal); K58.2 Mixed irritable bowel syndrome; Z98.890 Other specified postprocedural states | CPT/HCPCS: 99212 ==

== ENCOUNTER 2024-07-30 11:57 | Outpatient (AMB) | payer MEDICARE, SELFPAY ==
[2024-07-30 12:23] VITALS: BP 118/78; PULSE 62; O2SAT 98; BMI 27.9
--- NOTE | 2024-07-30 12:23 | MHC.OFFWIV ---
Intake Vital Signs 07/30/24 12:23 Height 5 ft 9 in Weight 189 lb BMI 27.9 BP 118/78 Blood Pressure Location Lt brachial Position Sitting Pulse 62 Pulse Source Pulse Oximeter Pulse Oximetry (%) 98 Oxygen Delivery Method Room Air Intake Visit Reasons: EP-rt knee pain Intake Note: Patient here for right knee pain that has been present 4-5 days. Denies any falls/injuries. Patient Tobacco Use Status: Current everyday Tobacco user Allergies No Known Allergies [No Known Allergies*] Allergy (Verified 07/30/24 12:30) Do you need a note to return to daycare/school/sports/work: No HPI EP-rt knee pain HPI Details This note is constructed using voice recognition software. While every effort has been made to ensure accuracy, materials technician errors may have been included. The patient is a 73 year old male who presents to the clinic today with right knee pain for the past 4-5 days. He reports a history of gout, but does typically present in his toe and he is currently on allopurinol for this. He denies any specific injury to the area now or in the past, no previous surgeries, he denies fever, chills, redness, warmth. He notes that it feels like his kneecap is being somewhat pushed forward and that there is swelling around the kneecap, and he had tried 400 mg of ibuprofen twice a day with moderate effect, however the symptoms returned. [facility] Medical History Onychomycosis of left great toe Thiamine deficiency Vitamin D deficiency Chronic gastroesophageal reflux disease Obesity (BMI 30.0-34.9) Hepatic encephalopathy Alcohol use disorder Hyperammonemia Chronic deep vein thrombosis (DVT) of distal vein of right lower extremity History of hepatitis B Varicose vein of leg Pain in joint, foot, left Lower leg DVT (deep venous thromboembolism), acute H/O irritable bowel syndrome Insomnia Anxiety Mixed dyslipidemia HTN (hypertension) Gout Impaired fasting glucose Surgical History History of esophagogastroduodenoscopy (EGD) H/O varicose vein stripping Hx of colonoscopy Status post rotator cuff surgery S/P lumbar microdiscectomy Family History Mother Varicose vein of leg Father No problems noted. Brother No problems noted. Brother No problems noted. Son No problems noted. Son No problems noted. Social History Household Members: Spouse Housing: House Are you a primary laboratory animal caretaker to a significant other at home: No Do you presently have visiting nurse or other home services: No Alcohol intake: former Patient Tobacco Use Status: Current everyday Tobacco user Tobacco use type: Cigar e-Cigarette/Vaping Use: Never Used Substance Use Type: Marijuana Advance Directives Date on File: 04/26/23 Current occupational status: retired Cognitive needs: No Hearing needs: No Vision needs: Yes Review of Systems Const All systems reviewed & are unremarkable except as noted in HPI and below Physical Exam Vital Signs: Last Vital Signs Pulse 62 07/30/24 12:23 BP 118/78 07/30/24 12:23 Pulse Ox 98 07/30/24 12:23 Oxygen Delivery Method Room Air 07/30/24 12:23 BMI result Body Mass Index 27.9 Const General: cooperative, healthy appearing, comfortable, no acute distress and alert Orientation/consciousness: patient oriented x3 Limitations: no limitations Skin General skin exam: no rashes or lesions noted, elasticity normal and turgor normal Neuro General: patient oriented x3 Extrem Other: Right knee full range of motion, infrapatellar swelling present without erythema or warmth. Normal distal neurovascular exam intact. General: Yes full ROM, Yes capillary refill normal and Yes normal exam except as noted Psych Appearance: grossly normal Mental Status: mental status grossly normal Speech and movement: Normal speech and movement present Affect: normal affect Assessment & Plan Assessment & Plan (1) Right knee pain: Code(s): M25.561 - Pain in right knee Qualifiers: Chronicity: acute Qualified Code(s): M25.561 - Pain in right knee Plan: X-ray ordered to evaluate for any contributing factors, no obvious deformity on imaging. Advised rest, ice, compression, elevation, and continued use of NSAIDs for pain. Advised follow up with PCP with ongoing symptoms or failure to resolve. Plan See above for full details and plan. Coding Level of Care Code Est Pt Level 4 (12417) Diagnoses Acute pain of right knee M25.561 Chronicity: acute
== END 2024-07-30 13:20 | disposition home or self-care (01) ==
PROVIDERS: PCP Internal Medicine; Visit Provider Registered Nurse
DX: M25.561 Pain in right knee (principal)

== ENCOUNTER → 2024-07-30 11:57 | Outpatient (BNVA) | payer MEDICARE, SELFPAY | PROVIDERS: PCP Internal Medicine ==

== ENCOUNTER 2024-07-30 13:10 | Outpatient (REF) | payer MEDICARE, SELFPAY ==
--- NOTE | ~2024-07-30 | XR_ITS ---
EXAMINATION: XR KNEE, RIGHT CLINICAL INFORMATION: Right knee pain. COMPARISON: None available. TECHNIQUE: AP, lateral, and both oblique views of the right knee. FINDINGS: Soft tissues are swollen at the knee with subcutaneous edema. No fracture or malalignment. Joint spaces are well preserved. Probable small joint effusion. Minimal patellofemoral compartment osteoarthritis. Atherosclerotic calcifications are present in the popliteal and runoff arteries. XR/XR knee RT 4V IMPRESSION: 1. Soft tissue swelling and edema at the knee. No acute osseous findings. 2. Minimal patellofemoral compartment osteoarthritis. Electronically signed by: Emil Jay MD 07/30/2024 02:25 PM EDT
== END 2024-07-30 13:11 | disposition home or self-care (01) ==
LOC: HO.HMGCLDS 13:10
PROVIDERS: PCP Internal Medicine; Visit Provider Registered Nurse
DX: M25.561 Pain in right knee (principal)
CPT/HCPCS: 73564; 99212

== ENCOUNTER 2024-10-29 11:23 | Outpatient (AMB) | payer MEDICARE, SELFPAY ==
--- OUTSIDE RECORDS SUMMARY | 2024-10-29 11:26 | XMS_ITS ---
Author Organization [facility] Address [address] [place] [address] Care Team Providers Care Heel Finisher Name Role Phone Alex ALY, Luiza Null Primary Care Provider Un available Black, Cristina Unavailable [phone] Allergies No Known Allergies REASON FOR VISIT Painful nail(s) aggrevated by shoes causing difficulty standing/walking, Wart(s) Medications Medication SIG (Take, Route, Frequency, Duration) Notes Start Date End Date Status Sertraline HCl 50 MG 1 tablet Orally Onc e a day 10/20/2017 Not-Taking Omeprazole 20 MG 1 capsule Orally Onc e a day for 30 day(s) Not-Taking Lisinopril 5 MG as directed Orally O nce a day Not-Taking Indomethacin 50 MG 1 capsule with food Orally Twice a day for 30 day(s) 08/08/2013 Not-Taking Gemfibrozil 600 MG Orally Twice a day Not-Taking Nabumetone 500 MG 1 tablet Orally Twic e a day prn Not-Taking Pantoprazole Sodium 40 MG 1 tablet Orall y Once a day for 30 day(s) Not-Taking Multivitamin Not-Gustabo ing Zolpidem Tartrate 10 MG 1 tablet at bedt candace as needed Orally Once a day Not-Taking ALPRAZolam 0.5 MG as directed Orally Not-Taking amLODIPine Besylate 5 MG as directed Ora lly Once a day Active Terbinafine HCl 250 MG 1 tablet Orally O nce a day for 7 days days then stop for 3 weeks repeat cycle for 90 days 10/04/2023 Active Vitamin B-1 100 MG 1 tablet Orally Once a day Not-Taking Xarelto 20 MG 1 tablet with food Orally Once a day prn Not-Taking hydrOXYzine HCl 25 MG 1 tablet as needed Orally Once a day prn Not-Taking Magnesium 250 MG 1 tablet with a meal Orally Once a day Active Folic Acid 1 MG 1 tablet Orally Once a day Active Losartan Potassium 25 MG Orally Active Atorvastatin Calcium 10 MG Orally Once a day Active Allopurinol 300 MG 1 tablet Orally Once a day for 30 day(s) Active Escitalopram Oxalate 10 MG 1 tablet Orally Once a day Active Social History Tobacco Use: Social History Observation Description Date Details (start date - stop date) Former Smoker NA - NA Tobacco Use/Smoking Question Answer Notes Are you a: former smoker Tobacco use other than smoking: Question Answer Notes Are you an other tobacco user? Yes o ne cigar every now and then Problems Problem Type SNOMED Code ICD Code Onset Dates Problem Status W/U Status Risk Notes Problem Plantar wart (13823629) Plantar wart (B07.0) Active confirmed Vital Signs Height 5ft9in in 08/06/2024 Weight 188 lbs 08/06/2024 BMI 27.76 kg/m2 08/06/2024 Procedures Procedure Date Ordered Date Performed Result Body Sit e 38988-Wkvo Destruction, -08/06/2024 N/A Encounters Encounter Location Date Provider Diagnosis [facility] [address] [address] 08/06/2024 Cristina Aguila Tinea unguium B35.1 ; Pain in left toe(s) M79.675 ; Left foot pain M79.672 and Plantar wart B07.0 Assessments Encounter Date Diagnosis (ICD Code) Assessment Notes Treatment Notes Treatment Clinical Notes Section Notes 08/06/2024 Tinea unguium (ICD-10 - B35.1) 08/06/2024 Pain in left toe(s) (ICD-10 - M79.675) 08/06/2024 Left foot pain (ICD-10 - M79.672) 08/06/2024 Plantar wart (ICD-10 - B07.0) Plan Of Treatment Pending Test Test Name Order Date 57267-Jsvz Destruction, -08/06/2024 Next Appt Details Follow Up: 3 Months, Reason: Provider Name:Cristina Aguila , 11/22/2024 09:30:00 AM, [address] [place], [address], Procedure Notes * Category Sub-Category Detail Notes Wart Treatment Procedure Verrucae were de brided to pin-point bleeding margins with sterile 15 surgical blade, silver nitrate chemocautery applied, recomm. immune-boosting meds such as zinc, recomm. follow up with topical chemosurgical agents, Pt defers any other forms of tx - 68257 Progress Notes * Kelvin EDGAR DDOB:[birth year] (73 yo M)Acc No.[id number]:08/06/2024 Progress Note Patient:?Kelvin Edgar Provider:?Cristina Aguila DPM :1950???Age:73 Y???Sex:Male Javier e:08/06/2024 Address:[address] [place], [place] [id number] Pcp:Bianka Perez Subjective: * Chief Complaints: * ???Painful nail(s) aggrevate d by shoes causing difficulty standing/walkingWart(s) * HPI: ???Painful Nails:?Pt States Last PCP Visit:?Date:?06/06/2024 ?Nature:?tender , dull , thick.?Location:?Great toe , Left foot.?Duration:?1 year or more.?Onset/Cause:?unknown.?Course:?, improved.?Treatments:?Pulse Dose PO Antifungal Treatment DOS 11/05 , denies any adverse side effects to medication , (i.e. rash, hives, taste/GI disturbance, yellow skin/eye discoloration, discolored stools, or any other unusual bodily complaints) Recent LFT's with PCP.?Skin problems:?Pt States PCP Visit: ?DATE?06/06/2024 * ROS:?General/Constitutional:?Nausea?denies.?Vomiting?denies.?Hunger Thirst?denies.?Loss appetite?denies.?Chills?denies.?Fatigue?denies.?Fever?denies.?Night Sweats?denies.?Unexplained weight loss?denies.?Unexplained weight gain?denies.?HEENTM:?Dentures?denies.?Dizziness?denies.?Glasses/contacts?denies.?Retinopathy?de nies.?Blurred/double vision?denies.?TMJ?denies.?Discharge/drainage?denies.?Implants?denies.?Sore throat?denies.?Dental implants?denies.?Hard of hearing ?admits.?Difficulty chewing/swallowing/speaking?denies.?Nose bleeds?denies.?Sore mouth?denies.?Respiratory:?On Oxygen?denies.?Pneumonia/pleurisy?denies.?Bronchitis?denies.?Emphysema?denies.?C oughing?admits.?Cough blood?denies.?Shortness of breath?denies.?Wheezing?denies.?Cardiovascular:?Pacemaker?denies.?MVP?denies.?WPW?denies.?CHF?denies.?Heart attack?denies.?Septal defect?denies.?Rapid beat?denies.?Chest pain ?denies.?Atrial Fib.?denies.?Murmur/Palpitations?denies.?Gastrointestinal:?Hemorrhoids?denies.?Stomach/Abdominal pain?denies.?Dark blood stool?denies.?Irritable bowel ?denies.?Constipation?denies.?Diarrhea?denies.?Hematology:?Swelling?denies.?Clots?denies.?Varicose Veins?denies.?Bruising?denies.?Bleeding problem?denies.?Genitourinary:?Blood urine?denies.?Frequent/Painfu/urination/bladder control?denies.?Kidney stones?denies.?Infection (UTI)?denies.?Nephropathy?denies.?sex trans dis (STD)?denies.?Prostate?denies.?Musculoskeletal:?Hammertoes?denies.?Bunions?denies.?Back Pain?denies.?Muscle Cramps/ Resting?denies.?Muscle cramps / walking?denies.?Generalized aches and pains?denies.?Weakness?denies.?Integ.:?Cuellar?denies.?Scars?denies.?Corns/calluses?denies.?Ingrown nails?denies.?Painful nails?admits.?Open Sores?denies.?Rashes?denies.?Neurologic:?Difficulty sleeping?denies.?Brain disorder?denies.?Numbness?denies.?Balance trouble?denies.?Confusion?denies.?Fainting/blackouts?denies.?Tingling?denies.?Tr emors?denies.? * Medical History:? * Surgical History:?back surge ry 04/2012rotator cuff tear repair 2015varicose vein stripping * Hospitalization/Major Diagno stic Procedure:?Denies Past Hospitalization * Family History:?Mother: dece ased, stroke.?Father: .? * Social History:?Tobacco Use:?Tobacco Use/Smoking?Are you a:?former smoker ?Tobacco use other than smoking?Are you an other tobacco user??Yes one cigar every now and then ???Miscellaneous:?Caffeine: yes, frequency:, 1-2 cups per day. ?Children: yes. ?Exercise: yes, walking. ?Marital status: . 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 * Medications:?TakingEscitalop natacha Oxalate 10 MG Tablet 1 tablet Orally Once a dayMagnesium 250 MG Tablet 1 tablet with a meal Orally Once a dayFolic Acid 1 MG Tablet 1 tablet Orally Once a dayLosartan Potassium 25 MG Tablet Orally Atorvastatin Calcium 10 MG Tablet Orally Once a dayAllopurinol 300 MG Tablet 1 tablet Orally Once a dayamLODIPine Besylate 5 MG Tablet as directed Orally Once a dayTerbinafine HCl 250 MG Tablet 1 tablet Orally Once a day for 7 days days then stop for 3 weeks repeat cycleTaking Escitalopram Oxalate 10 MG Tablet 1 tablet Orally Once a dayTaking Magnesium 250 MG Tablet 1 tablet with a meal Orally Once a dayTaking Folic Acid 1 MG Tablet 1 tablet Orally Once a dayTaking Losartan Potassium 25 MG Tablet Orally Taking Atorvastatin Calcium 10 MG Tablet Orally Once a dayTaking Allopurinol 300 MG Tablet 1 tablet Orally Once a dayTaking amLODIPine Besylate 5 MG Tablet as directed Orally Once a dayTaking Terbinafine HCl 250 MG Tablet 1 tablet Orally Once a day for 7 days days then stop for 3 weeks repeat cycleNot-Taking/PRNVitamin B-1 100 MG Tablet 1 tablet Orally Once a dayXarelto 20 MG Tablet 1 tablet with food Orally Once a day, Notes: prnhydrOXYzine HCl 25 MG Tablet 1 tablet as needed Orally Once a day, Notes: prnNabumetone 500 MG Tablet 1 tablet Orally Twice a day, Notes: prnPantoprazole Sodium 40 MG Tablet Delayed Release 1 tablet Orally Once a dayMultivitamin Zolpidem Tartrate 10 MG Tablet 1 tablet at bedtime as needed Orally Once a dayALPRAZolam 0.5 MG Tablet as directed Orally Gemfibrozil 600 MG Tablet Orally Twice a daySertraline HCl 50 MG Tablet 1 tablet Orally Once a dayOmeprazole 20 MG Capsule Delayed Release 1 capsule Orally Once a dayLisinopril 5 MG Tablet as directed Orally Once a dayIndomethacin 50 MG Capsule 1 capsule with food Orally Twice a dayMedication List reviewed and reconciled with the patientNot-Taking/PRN Vitamin B-1 100 MG Tablet 1 tablet Orally Once a dayNot-Taking/PRN Xarelto 20 MG Tablet 1 tablet with food Orally Once a day, Notes: prnNot-Taking/PRN hydrOXYzine HCl 25 MG Tablet 1 tablet as needed Orally Once a day, Notes: prnNot-Taking/PRN Nabumetone 500 MG Tablet 1 tablet Orally Twice a day, Notes: prnNot-Taking/PRN Pantoprazole Sodium 40 MG Tablet Delayed Release 1 tablet Orally Once a dayNot-Taking/PRN Multivitamin Not-Taking/PRN Zolpidem Tartrate 10 MG Tablet 1 tablet at bedtime as needed Orally Once a dayNot- Taking/PRN ALPRAZolam 0.5 MG Tablet as directed Orally Not-Taking/PRN Gemfibrozil 600 MG Tablet Orally Twice a dayNot-Taking/PRN Sertraline HCl 50 MG Tablet 1 tablet Orally Once a dayNot-Taking/PRN Omeprazole 20 MG Capsule Delayed Release 1 capsule Orally Once a dayNot-Taking/PRN Lisinopril 5 MG Tablet as directed Orally Once a dayNot- Taking/PRN Indomethacin 50 MG Capsule 1 capsule with food Orally Twice a dayMedication List reviewed and reconciled with the patient * Allergies:?N.K.D.A.yes[Aller gies Verified] Objective: * Vitals:?Ht: 5ft9in, Wt:188, BMI:27.76, Shoe size: 10.5, Ht-cm: 175.26 cm, Wt-k.28 kg. * Examination: ???General Examination: ?GENERAL APPEARANCE:?Reveals a pleasant, alert, well nourished, well- developed, well hydrated individual, who demonstrates proper attention to hygiene/body habitus, and is in no acute distress, Pt serves as own historian for office visit today.?ORIENTED:?person, place, and time.?Vascular: ?DP PULSES(B):?2/4, B/L.?PT PULSES(B):?2/4, B/L.?CAPILLARY FILL TIME:?immediate, all digits, B/L.?TROPHIC CONDITION-TEXTURE/ELASTICITY/TURGOR/HAIR GROWTH(B):?normal, B/L.?TEMPERTURE GRADIENT(C):?normal, warm to cool, proximal to distal, B/L, B/L.?Neurological: ?SENSORY:?Neurological exam reveals intact sensorium, pain sensation normal, vibration sensation intact, pinprick sensation is normal in the lower extremities, Pt denies, anesthesia, burning, paresthesia, tingling, B/L.?Nails: ?NAILS are:?Elongated, overgrown, dystrophic, lytic, greater than 3mm thick, discolored and friable with crumbly malodorous subungual debris, with pain on palpation , TA , proximal clearing of nail 50 percent.?Dermatologic: ?VERRUCA:?Reveals a Single , multi-loculated , mosaic-patterned, round, raised, flat-topped, petechial bleeding papule(s), with cauliflower appearance and interruption of skin lines, pain to lateral compression, and size estimated at 3 mm diameter left dorsal foot.? Assessment: * Assessment: 1.?Tinea unguium - B35.1?2.? Pain in left toe(s) - M79.675?3.?Left foot pain - M79.672?4.?Plantar wart - B07.0 (Primary)? Plan: * Treatment: * Procedures:?Wart Treatment:?Procedure?Verrucae were debrided to pin-point bleeding margins with sterile 15 surgical blade, silver nitrate chemocautery applied, recomm. immune-boosting meds such as zinc, recomm. follow up with topical chemosurgical agents, Pt defers any other forms of tx - 89560.? * Procedure Codes:?73395 Wart Destruction, 1-14, Modifiers: XS * Preventive Medicine:? ??Counseling:?Discussion:?-13: Office or other outpatient visit for the evaluation and management of an established patient, which required a medically appropriate history and/or examination and LOW level of DECISION MAKING for: 1 STABLE ACUTE UNCOMPLICATED PROBLEM, 2 OR MORE MINOR PROBLEMS, OR 1 STABLE CHRONIC PROBLEM, THAT POSE(S) A LOW RISK FOR MORBIDITY/MORTALITY. The visit on the day of the encounter encompassed interpreting the data and educating the patient as to the nature of their condition, treatment options available according to their individual PMH, meds, allergies, and overall health/living conditions, as well as any potential risks or complications that may occur from a failure to adhere to, and participate in, the recommended course of therapy. The discussion included a complete verbal, and/or written explanation of the examination results, any x-rays taken, the proposed diagnosis, and outline of the treatment plan. A schedule for future care needs was also explained. The patient verbalized an understanding of the instructions at this time and agreed to be an active participant in their treatment. If the patient should think of any questions or concerns after the visit, I have encouraged the patient to call the office.?F/U Fungal nails:?Reviewed with the patient the results we acheived so far with the oral Lamisil. Discussed the results that we hope to see and that marjan a topical medication to the nails may also help. We discussed the duration of time that the Lamisil will work on the nails for. We should wait 1 year before we take the Lamisil again., Nail debridement performed extensively to reduce/remove overall nail length and girth, subungual debris, and necrotic tissue, by manual and electrical means with use of a nail nipper and/or dremel, to more viable healthy nail plate or bed tissue. Silver nitrate used for any petechial bleeding as necessary.Requested copy of most recent LFT S from PCP.? * Follow Up:?3 Months * Images: * Sign off status: Completed true * Provider:?Cristina Aguila DPM Date:?2023 Generated for Braden reyes/Hill/Pedroitting on:?10/29/2024 11:26 AM EST History and Physical Notes * HPI (History of Present Illness) Category Sub-Category Detail Notes Category Not es Painful Nails Onset/Cause: unknown Course: , improved Duration: 1 year or more Location: Great toe , Left anyi t Nature: tender , dull , thic k Treatments: Pulse Dose PO Antifu ngal Treatment DOS 11/05 , denies any adverse side effects to medication , (i.e. rash, hives, taste/GI disturbance, yellow skin/eye discoloration, discolored stools, or any other unusual bodily complaints) Recent LFT's with PCP Pt States Last PCP Visit: Date:: 06/06/2024 Skin problems Pt States PCP Visit: DATE: 06/06/2024 Examination Category Sub-Category Detail Notes Category Not es Neurological SENSORY: Neurological exa m reveals intact sensorium, pain sensation normal, vibration sensation intact, pinprick sensation is normal in the lower extremities, Pt denies, anesthesia, burning, paresthesia, tingling, B/L Dermatologic VERRUCA: Reveals a Single , multi-loculated , mosaic-patterned, round, raised, flat-topped, petechial bleeding papule(s), with cauliflower appearance and interruption of skin lines, pain to lateral compression, and size estimated at 3 mm diameter left dorsal foot Orthopedic DIGITAL DEFORMITIES: General Examination GENERAL APPEARANCE: Reveals a pleasant, alert, well nourished, well-developed, well hydrated individual, who demonstrates proper attention to hygiene/body habitus, and is in no acute distress, Pt serves as own historian for office visit today ORIENTED: person, place, and t candace Vascular DP PULSES(B): 2/4, B/L PT PULSES(B): 2/4, B/L CAPILLARY FILL TIME: immediate, all digi ts, B/L TEMPERTURE GRADIENT(C): normal, warm to cool, proximal to distal, B/L, B/L TROPHIC CONDITION-TEXTURE/ELASTICITY/TURGOR/HAIR GROWTH(B): normal, B/L Nails NAILS are: Elongated, overg rown, dystrophic, lytic, greater than 3mm thick, discolored and friable with crumbly malodorous subungual debris, with pain on palpation , TA , proximal clearing of nail 50 percent
--- OUTSIDE RECORDS SUMMARY | 2024-10-29 11:26 | XMS_ITS ---
Author Organization [facility] Address [address] [place] [address] Care Team Providers Care Senior Office Assistant Name Role Phone Alex ALY, Luiza Null Primary Care Provider Un available Cristina Aguila Unavailable [phone] REASON FOR VISIT [place] [facility] [place] Encounter Location Date Provider Diagnosis [address] [address] 08/06/2024 Cristina Mingo Plan Of Treatment Next Appt Details Provider Name:Cristina Aguila , 11/22/2024 09:30:00 AM, [address] [place], [address], Progress Notes * Kelvin EDGAR DDOB:[birth year] (73 yo M)Acc No.[id number]:08/06/2024 Patient:?Kelvin Edgar :1950???Age:73 Y???Sex:Male Address:[address] [place] [address], [address] * true * Date:? Generated for Candelariai eric/Hill/eTransmitting on:?10/29/2024 11:26 AM EST
--- OUTSIDE RECORDS SUMMARY | 2024-10-29 11:27 | XMS_ITS | Patient Health Record ---
Author Organization [facility] Address [address] [place] [address] Care Team Providers Care Tube Heater Name Role Phone Alex ALY, Luiza Null Primary Care Provider Un available Cristina Aguila Unavailable [phone] Allergies No Known Allergies Reason For Referral No Information Medications Medication SIG (Take, Route, Frequency, Duration) Notes Start Date End Date Status Xarelto 20 MG 1 tablet with food Orally Once a day prn Not-Taking Indomethacin 50 MG 1 capsule with food Orally Twice a day for 30 day(s) 08/08/2013 Not-Taking hydrOXYzine HCl 25 MG 1 tablet as needed Orally Once a day prn Not-Taking Nabumetone 500 MG 1 tablet Orally Twic e a day prn Not-Taking Pantoprazole Sodium 40 MG 1 tablet Orall y Once a day for 30 day(s) Not-Taking Multivitamin Not-Gustabo ing Zolpidem Tartrate 10 MG 1 tablet at bedt candace as needed Orally Once a day Not-Taking ALPRAZolam 0.5 MG as directed Orally Not-Taking Gemfibrozil 600 MG Orally Twice a day Not-Taking Magnesium 250 MG 1 tablet with a meal Orally Once a day Active Folic Acid 1 MG 1 tablet Orally Once a day Active Losartan Potassium 25 MG Orally Active Atorvastatin Calcium 10 MG Orally Once a day Active Allopurinol 300 MG 1 tablet Orally Once a day for 30 day(s) Active amLODIPine Besylate 5 MG as directed Ora lly Once a day Active Sertraline HCl 50 MG 1 tablet Orally Onc e a day 10/20/2017 Not-Taking Omeprazole 20 MG 1 capsule Orally Onc e a day for 30 day(s) Not-Taking Vitamin B-1 100 MG 1 tablet Orally Once a day Not-Taking Lisinopril 5 MG as directed Orally O nce a day Not-Taking Terbinafine HCl 250 MG TAKE 1 TABLET ORA LLY ONCE A DAY FOR 7 DAYS DAYS THEN STOP FOR 3 WEEKS REPEAT CYCLE 90 DAYS for 84 Active Escitalopram Oxalate 10 MG 1 tablet Orally Once a day Active Social History Tobacco Use: Social History Observation Description Date Details (start date - stop date) Former Smoker NA - NA Tobacco Use/Smoking Question Answer Notes Are you a: former smoker Alcohol Screen Question Answer Notes Did you have a drink contain ing alcohol in the past year? Yes How often did you have a dri nk containing alcohol in the past year? 2 to 3 times a week (3 points) Points 3 Interpretation Negative Tobacco use other than smoking: Question Answer Notes Are you an other tobacco user? Yes o ne cigar every now and then Problems Problem Type SNOMED Code ICD Code Onset Dates Problem Status W/U Status Risk Notes Problem Plantar wart (53269507) Plantar wart (B07.0) Active confirmed Vital Signs Blood pressure diastolic 70 mm Hg 12/29/2023 Height 5ft9in in 08/06/2024 Blood pressure systolic 118 mm Hg 12/29/2023 Weight 188 lbs 08/06/2024 BMI 27.76 kg/m2 08/06/2024 Procedures Procedure Date Ordered Date Performed Result Body Sit e 60713-Qmgo Destruction, 1-14 08/06/2024 N/A Encounters Encounter Location Date Provider Diagnosis [address] [address] 12/29/2023 Cristina Black Tinea unguium B35.1 and Pain in left toe(s) M79.[address] [address] 04/26/2024 Cristina Black Tinea unguium B35.1 and Pain in left toe(s) M79.[address] [address] 08/06/2024 Cristina Black Tinea unguium B35.1 ; Pain in left toe(s) M79.675 ; Left foot pain M79.672 and Plantar wart B07.0 [facility] [address] [address] 11/02/2023 Cristina Aguila [facility] [address] [address] 12/29/2023 Cristina Aguila [facility] [address] [address] 12/30/2023 Cristina Aguila [facility] [address] [address] 06/08/2024 Cristina Aguila [facility] [address] [address] 08/06/2024 Cristinali Aguila Assessments Encounter Date Diagnosis (ICD Code) Assessment Notes Treatment Notes Treatment Clinical Notes Section Notes 12/29/2023 Tinea unguium (ICD-10 - B35.1) Patient Educated with: FUNGUS NAIL INFECTIONS.pdf (FUNGUS NAIL INFECTIONS.pdf ) 12/29/2023 Pain in left toe(s) (ICD-10 - M79.675) 04/26/2024 Tinea unguium (ICD-10 - B35.1) Patient Educated with: FUNGUS NAIL INFECTIONS.pdf (FUNGUS NAIL INFECTIONS.pdf ) 04/26/2024 Pain in left toe(s) (ICD-10 - M79.675) 08/06/2024 Tinea unguium (ICD-10 - B35.1) 08/06/2024 Pain in left toe(s) (ICD-10 - M79.675) 08/06/2024 Left foot pain (ICD-10 - M79.672) 08/06/2024 Plantar wart (ICD-10 - B07.0) Plan Of Treatment Pending Test Test Name Order Date Tc99 3 phase Bone Scan 10/24/2017 *Uric Acid, Serum 08/08/2013 *Sedimentation Rate-Westergren 3 *Liver Function Test (LFT) 10/03/2023 *Liver Function Test (LFT) 04/26/2024 X ray : Foot, left 3V 08/08/2013 24128-Srgw Destruction, 1-14 08/06/2024 Nail Panel 09/26/2023 Next Appt Details Provider Name:Cristina Aguila , 11/22/2024 09:30:00 AM, [address] [facility], [place], [address], Insurance Providers Payer Name Payer Address Payer Phone Subscriber Number Group Number Insured Name Patient Relationship to Insured Coverage Start Date Coverage End Date [employer] [place] [employer]age [facility] [address] [place] [address] [id number] Kelvin Chauhan Self - patient is the insured 6 Medical (General) History Medical History History ICD Code Gout reflux hypertension chicken pox measles Hepatitis B Anxiety Warts Joint implants/screws raynauds disease Vascular phlebitis (clots) Surgical History Surgery Date(Month/Year) back surgery 04/2012 rotator cuff tear repair 2014 varicose vein stripping
--- OUTSIDE RECORDS SUMMARY | 2024-10-29 11:27 | XMS_ITS ---
Author Organization [facility] Address [address] [place] [address] Care Team Providers Care Moisture Conditioner Operator Name Role Phone Alex ALY, Luiza Null Primary Care Provider Un available Cristina Aguila Unavailable [phone] REASON FOR VISIT Labs reviewed Encounters Encounter Location Date Provider Diagnosis [facility] [address] [place] [address] 06/08/2024 Cristina Mingo Plan Of Treatment Next Appt Details Provider Name:Cristina Aguila , 11/22/2024 09:30:00 AM, [address] [place], [address], Progress Notes * Kelvin EDGAR DDOB:[birth year] (73 yo M)Acc No.[id number]:06/08/2024 Patient:?Kelvin Edgar :1950???Age:73 Y???Sex:Male Address:[address] [place] [address], [address] * true * Date:? Generated for Printi eric/Hill/eTransmitting on:?10/29/2024 11:26 AM EST
[2024-10-29 12:23] VITALS: BP 110/68; PULSE 58; BMI 28.1
--- NOTE | 2024-10-29 12:23 | MHC.PC.OV ---
Vital Signs 10/29/24 12:23 Height 5 ft 9 in Weight 190 lb BMI 28.1 BP 110/68 Blood Pressure Location Lt brachial Position Sitting Pulse 58 Pulse Source Pulse Oximeter Intake Visit Reasons: Follow up htn , lipids , anxiety Intake Note: Pt is here today f/u HTN and anxiety: Pt will get his fasting labs done tomorrow Allergies No Known Allergies [No Known Allergies*] Allergy (Verified 10/29/24 12:45) Medication List - Last Reconciled 10/29/24 by Luiza Johnson MD allopurinol 300 mg PO DAILY alprazolam 0.25 mg (1/2 x 0.5 mg) PO DAILY PRN amlodipine 5 mg PO DAILY atorvastatin 10 mg PO DAILY escitalopram oxalate 20 mg PO DAILY folic acid 1 mg PO DAILY losartan 25 mg PO DAILY 90 days magnesium oxide 400 mg PO DAILY nabumetone 500 mg PO BID PRN omeprazole 20 mg orally Take Tuesday, Tuesday, Tuesday; terbinafine HCl mg PO Tobacco use date assessed: 10/29/24 Fall risk assessment: No Falls in past year Last assessed Fall Risk: 10/29/24 Dental Screening Dental Screen Date: 10/29/24 Did you have a dental visit in the last 12 months?: Yes Did you have a dental problem in the last 6 months where you did not have access to dental care?: Yes Was dental information given to patient?: Patient has dentist HPI Follow up htn , lipids , anxiety HPI Details 73-year-old male here today for follow-up on his hypertension and anxiety disorder. Has not yet had his fasting lipid lab done. Compliant with taking his medications, tries to follow recommended diet, and get regular exercise. Continues to smoke cigarettes with no desire to quit at present time. Blood pressure stable and controlled on present treatment with losartan 25 mg daily. Takes escitalopram 20 mg daily and lorazepam as needed for anxiety disorder which is stable and controlled on present treatment. Has been compliant with taking his atorvastatin 10 mg daily and tries to follow a low-cholesterol diet [facility] Medical History Onychomycosis of left great toe Thiamine deficiency Vitamin D deficiency Chronic gastroesophageal reflux disease Obesity (BMI 30.0-34.9) Hepatic encephalopathy Alcohol use disorder Hyperammonemia Chronic deep vein thrombosis (DVT) of distal vein of right lower extremity History of hepatitis B Varicose vein of leg Pain in joint, foot, left Lower leg DVT (deep venous thromboembolism), acute H/O irritable bowel syndrome Insomnia Anxiety Mixed dyslipidemia HTN (hypertension) Gout Impaired fasting glucose Surgical History History of esophagogastroduodenoscopy (EGD) H/O varicose vein stripping Hx of colonoscopy Status post rotator cuff surgery S/P lumbar microdiscectomy Family History Mother Varicose vein of leg Father No problems noted. Brother No problems noted. Brother No problems noted. Son No problems noted. Son No problems noted. Social History Household Members: Spouse Housing: House Are you a primary rn home care to a significant other at home: No Do you presently have visiting nurse or other home services: No Alcohol intake: former Patient Tobacco Use Status: Current everyday Tobacco user Tobacco use type: Cigar e-Cigarette/Vaping Use: Never Used Substance Use Type: Marijuana Advance Directives Date on File: 04/26/23 Current occupational status: retired Cognitive needs: No Hearing needs: No Vision needs: Yes Questionnaire PHQ-9 Over the last 2 weeks, how often have you been bothered by any of the following problems? Depression Screening Interpretation: Negative Depression Screening Done: Yes Source: Developed by Drs. Max Pollard, Siobhan Diop, Steven Mirza and colleagues, with an educational winsome from [employer]. Thrive Questionnaire Date Thrive assessed: 10/22/24 I am a: Patient What is your living situation today?: I choose not to answer this question Within the past 12 months, did the food you bought not last and you didn't have the money to get more?: Never true Within the past 12 months, did you worry whether your food would run out before you got money to buy more?: Never true Do you have trouble paying for medicines?: I choose not to answer this question Do you have trouble getting transportation to medical appointments?: I choose not to answer this question Do you have trouble paying your heating and electricity bill?: I choose not to answer this question Do you have trouble taking care of your child, family member or friend?: I choose not to answer this question Do you have trouble with day-to-day activities such as bathing, preparing meals, shopping, managing finances, etc.?: I choose not to answer this question Are you currently unemployed and looking for a job?: I choose not to answer this question Are you interested in more education?: No Please select the resources that you would like help with: None Currently or been in a relationship where the following occur: No concerns reported THRIVE Score: 0 AUDIT C Alcohol Use Questionnaire (AUDIT-C) 1. How often do you have a drink containing alcohol?: 2-3 times a week 2. How many drinks containing alcohol do you have on a typical day when you are drinking?: 1 or 2 3. How often do you have six or more drinks on one occasion?: Never Total Score: 3 MARY-7 AMB Questionnaire MARY-7 Date MARY - 7 assessed: 10/29/24 Feeling nervous, anxious, or on edge: 0 = Not at all Not being able to stop or control worryin = Not at all Worrying too much about different things: 1 = Several days Trouble relaxin = Not at all Being so restless that it is hard to sit still: 0 = Not at all Becoming easily annoyed or irritable: 0 = Not at all Feeling afraid as if something awful might happen: 0 = Not at all Total MARY-7 score (0-4 normal; 5-9 mild; 10-14 moderate; 15-21 severe): 1 Source: Developed by Drs. Max Pollard, Siobhan Diop, Steven Mirza and colleagues, with an educational winsome from [employer]. MARY-7 Assessment Billing MARY-7 Assessment Tool: MARY-7 Assessment 62024 Review of Systems Const Denies body aches Eyes Reports no additional complaints ENT Reports no additional complaints Card Reports no additional complaints Resp Reports no additional complaints GI Denies abdominal pain, Denies belching, Denies melena, Denies change in bowel habits, Denies heartburn and Denies nausea Reports no additional complaints Musc Reports no additional complaints Neuro Reports no additional complaints Psych Reports no additional complaints Endo Reports no additional complaints Bassem/Lymph Reports no additional complaints Physical exam (Primary Care) Vital Signs: Last Vital Signs Pulse 58 12/16/24 12:23 BP 110/68 10/29/24 12:23 BMI result Body Mass Index 28.1 Tobacco/Smoking Status: Tobacco use Status Tobacco use date assessed 10/29/24 10/29/24 12:32 Patient Tobacco Use Status Current everyday Tobacco 10/29/24 12:23 Tobacco use type Cigar 10/29/24 12:23 e-Cigarette/Vaping Use Never Used 10/29/24 12:23 Depression Screening Interpretation: Negative Thrive Assessment: Date of Thrive Assessment Date Thrive assessed 10/22/24 10/29/24 12:23 Currently or been in a relationship where the following occur: No concerns reported Const General: no acute distress, alert and Physically active Nutritional Appearance: overweight Orientation/consciousness: patient oriented x3 HENMT Ears: external ears normal General nose exam: Normal external nose present Face and sinus: Yes sinuses nontender and Yes face symmetric Mouth: Normal oral and palatal mucosa present, oropharynx normal and moist mucous membranes Eyes General: appearance normal, both eyes and all related structures Neck Neck: Yes full ROM, Yes no lymphadenopathy and Yes supple Resp Auscultation: clear to auscultation bilaterally Cardio Rate: regular rate Rhythm: regular rhythm Heart sounds: S1 normal heart sound present and S2 normal heart sound present GI Palpation (GI): Soft to palpation, nontender and no guarding Auscultation: normal bowel sounds Skin General skin exam: no rashes or lesions noted Neuro General: patient oriented x3, gait normal, tone normal, moves all extremities, Normal light touch and pain sensation and no focal motor deficits Cognition (Neuro): normal cognition Gait exam (Neuro): Normal gait present Extrem General: Yes full ROM, Yes no joint enlargement, Yes no clubbing, cyanosis or edema and Yes normal gait Psych Appearance: grossly normal and well kempt Mental Status: mental status grossly normal Speech and movement: Normal speech and movement present Affect: normal affect Coding Level of Care Code Est Pt Level 4 (99288) Complex EM visit Add On G2211 Diagnoses Primary hypertension I10 Hypertension type: primary hypertension Mixed dyslipidemia E78.2 Impaired fasting glucose R73.01 Anxiety F41.9 Additional Codes MARY-7 Assessment Billing - MARY-7 Assessment Tool: MARY-7 Assessment 07985 ([id number]) Assessment & Plan Assessment & Plan (1) HTN (hypertension): Code(s): I10 - Essential (primary) hypertension Category: Medical Qualifiers: Hypertension type: primary hypertension Qualified Code(s): I10 - Essential (primary) hypertension Plan: Blood pressure at goal of less than 130/80. Continue with current medication. Reinforced importance of following a low sodium diet, getting regular exercise, and lowering stress levels. (2) Mixed dyslipidemia: Code(s): E78.2 - Mixed hyperlipidemia Category: Medical Plan: Continue atorvastatin 10 mg daily, reminded to get his fasting labs check lipids (3) Impaired fasting glucose: Code(s): R73.01 - Impaired fasting glucose Category: Medical Plan: Insert impaired fasting (4) Anxiety: Code(s): F41.9 - Anxiety disorder, unspecified Category: Medical Plan: Stable controlled on escitalopram 20 mg daily and takes lorazepam as needed acute anxiety attacks Medications: Discontinued omeprazole Discontinued Reason: Doctor's Order 20 mg orally Take Tuesday, Tuesday, Tuesday; 30 caps 3RF K21.9 - Gastro-esophageal reflux disease without esophagitis
== END 2024-10-29 12:51 | disposition home or self-care (01) ==
PROVIDERS: PCP Internal Medicine; Visit Provider Internal Medicine
DX: I10 Essential (primary) hypertension (principal); E78.2 Mixed hyperlipidemia; R73.01 Impaired fasting glucose; F41.9 Anxiety disorder, unspecified

== ENCOUNTER → 2024-10-29 11:23 | Outpatient (BNVA) | payer MEDICARE, SELFPAY | PROVIDERS: PCP Internal Medicine; Visit Provider Internal Medicine | DX: F41.9 Anxiety disorder, unspecified (principal); I10 Essential (primary) hypertension; E78.2 Mixed hyperlipidemia; R73.01 Impaired fasting glucose; F17.210 Nicotine dependence, cigarettes, uncomplicated; Z79.899 Other long term (current) drug therapy | CPT/HCPCS: 96127; 99212 ==

== ENCOUNTER 2024-10-30 10:49 | Outpatient (REF) | payer MEDICARE, SELFPAY ==
[2024-10-30 13:16] LABS: MANUAL DIFF FLAG NO
[2024-10-30 13:22] LABS: Basophils Percent Auto 0.5 % (0-2); Eosinophils Absolute Auto 0.1 X10*3/uL (0.0-0.4); Eosinophils Percent Auto 1.4 % (0-4); Hematocrit 41.3 % (42.0-52.0); Hemoglobin 14.4 g/dl (14.0-18.0); Imm Gran Abs Auto 0.01 X10*3/uL (0.00-0.03); Imm Gran Pct Auto 0.2 % (0.0-0.4); Lymphocytes Absolute Auto 2.2 X10*3/uL (1.2-4.9); Lymphocytes Percent Auto 37.8 % (20-40); Mean Corpuscular HGB Conc 34.9 g/dl (31.0-36.0); Mean Corpuscular Hemoglobin 34.1 pg (27.0-33.0); Mean Corpuscular Volume 97.9 fL (80.0-98.0); Mean Platelet Volume 9.8 fL (9.4-12.4); Monocytes Absolute Auto 0.4 X10*3/uL (0.1-1.2); Monocytes Percent Auto 7.4 % (2-11); Neutrophils Percent Auto 52.7 % (45-73); Platelet Count 169 X10*3/uL (160-400); Red Blood Count 4.22 X10*6/uL (4.60-5.80); Red Cell Distribution Width 12.7 % (11.0-16.0); White Blood Count 5.7 X10*3/uL (4.8-10.8)
[2024-10-30 13:52] LABS: Alanine Aminotransferase 24 U/L (0-40); Albumin Level 3.8 g/dL (3.5-5.0); Alkaline Phosphatase 70 U/L (39-117); Anion Gap 11 (12-20); Aspartate Amino Transferase 33 U/L (5-37); Bilirubin Total 0.5 mg/dL (0.0-1.0); Blood Urea Nitrogen 8 mg/dL (9-16); Calcium 8.6 mg/dL (8.4-10.2); Carbon Dioxide 27 mmol/L (22-29); Chloride 106 mmol/L (96-108); Cholesterol 176 mg/dL (<200); Estimated Glomerular Filt Rate > 60; Glucose Fasting 103 mg/dL (60-99); HDL Cholesterol 61 mg/dL (>40); LDL Cholesterol Calculated 62 mg/dL (<100); Potassium 3.9 mmol/L (3.3-5.1); Sodium 140 mmol/L (135-145); Total Protein 6.4 g/dL (6.5-8.0); Triglycerides 267 mg/dL (<150); Uric Acid 5.3 mg/dL (3.4-7.0)
[2024-10-30 13:54] LABS: PSA,Total (Free>4and<10) 0.57 ng/mL (0.00-4.00)
[2024-10-30 14:02] LABS: Magnesium 1.4 mg/dL (1.6-2.6); Vitamin D 25-OH Total 47.4 ng/mL (>30)
== END 2024-10-30 10:50 | disposition home or self-care (01) ==
LOC: HO.HMGCLDS 10:49
PROVIDERS: PCP Internal Medicine; Visit Provider Internal Medicine
DX: E66.9 Obesity, unspecified (principal); E78.2 Mixed hyperlipidemia; I10 Essential (primary) hypertension; R73.01 Impaired fasting glucose; E83.42 Hypomagnesemia; Z12.5 Encounter for screening for malignant neoplasm of prostate
CPT/HCPCS: 36415; 80053; 80061; 82306; 83735; 84153; 84550; 85025

== ENCOUNTER 2025-05-13 08:52 | Outpatient (REF) | payer MEDICARE, SELFPAY ==
--- OUTSIDE RECORDS SUMMARY | 2025-05-13 09:06 | XMS_ITS | Patient Health Record ---
Author Organization [facility] Address [address] [place] [id number] Care Team Providers Care Acid Changer Name Role Phone Alex ALY, Luiza Primary Care Provider Sav Lam Jr Unavailable Allergies No Known Allergies Reason For Referral No Information Medications Medication SIG (Take, Route, Frequency, Duration) Notes Start Date End Date Status Losartan Potassium 25 MG 1 tablet Orally Once a day Active Fish Oil Active Aspir-81 81 MG 1 tablet Orally Once a day Active ALPRAZolam 0.5 MG 1 tablet Orally once a day Active Pantoprazole Sodium Active Magnesium 300 MG 1 capsule with a kael l Orally Once a day for 30 day(s) Active Folic Acid Active Escitalopram Oxalate Active Allopurinol 300 MG 1 tablet Orally Once a day Active Vitamin B-1 Active Atorvastatin Calcium 10 MG 1 tablet Oral ly Once a day Active amLODIPine Besylate 5 MG 1 tablet Orally Once a day Active Immunizations Vaccine Route Administration Date Status Comme nts Flu vaccine no Preserv 3 and > Unknown 07/19/2018 Admin istered Social History Tobacco Use: Social History Observation Description Date Details (start date - stop date) Former Smoker NA - NA Tobacco Use/Smoking Question Answer Notes Patient is a former smoker How long has it been since you last smoked? > 10 years Alcohol Screen Question Answer Notes Did you have a drink containing alcohol in the p ast year? No Points 0 Interpretation Negative Section Notes: Tobacco use negative. Alcoho l use one to 2 drinks per day. Tobacco use negative. Alcoho l use one to 2 drinks per day. Tobacco use negative. Alcohol use one to 2 drinks per day. recently decreased alcohol consumption after visit to ER in October 2015 Tobacco use negative. Alcohol use one to 2 drinks per day. He decreased alcohol consumption after visit to ER in October 2015 Tobacco use negative. Patien t quit drinking completely Problems Problem Type SNOMED Code ICD Code Onset Dates Problem Status W/U Status Risk Notes Problem 475245866 Colon cancer screening (Z12.11) Active confirmed Problem 659638805 Gastroesophageal reflux disease without esophagitis (K21.9) Active confirmed Problem 118148396 Increased ammoni a level (R79.89) Active confirmed Problem 578164302 Altered mental status, unspecified altered mental status type (R41.82) Active confirmed Plan Of Treatment Future Test Test Name Order Date COLONOSCOPY 03/16/2012 COLONOSCOPY 08/03/2013 COLONOSCOPY 08/23/2018 Insurance Providers Payer Name Payer Address Payer Phone Subscriber Number Group Number Insured Name Patient Relationship to Insured Coverage Start Date Coverage End Date [place] OF [place] [address] [place] [address] [id number] TIMOTHY EDGAR Self - patient is the insured [facility] [address] [place] [address] [id number] TIMOTHY EDGAR Self - patient is the insured Medical (General) History Medical History History ICD Code hypertension gout elevated cholesterol esophageal reflux Denies HI,DM,CVA,Lung disease,renal dise ase Surgical History Surgery Date(Month/Year) back surgery 2012 rotator cuff left 2014 Hospitalization History Reason Date(Month/Year) amanette may
[2025-05-13 10:29] LABS: Estimated Average Glucose 85 mg/dL; Hemoglobin A1c % 4.6 % (<6.0)
[2025-05-13 10:39] LABS: Alanine Aminotransferase 25 U/L (0-40); Anion Gap 13 (12-20); Aspartate Amino Transferase 34 U/L (5-37); Blood Urea Nitrogen 10 mg/dL (9-16); Calcium 8.8 mg/dL (8.4-10.2); Carbon Dioxide 25 mmol/L (22-29); Chloride 106 mmol/L (96-108); Cholesterol 152 mg/dL (<200); Estimated Glomerular Filt Rate > 60; Glucose Fasting 90 mg/dL (60-99); HDL Cholesterol 66 mg/dL (>40); LDL Cholesterol Calculated 62 mg/dL (<100); Potassium 3.9 mmol/L (3.3-5.1); Sodium 140 mmol/L (135-145); Triglycerides 124 mg/dL (<150); Uric Acid 4.4 mg/dL (3.4-7.0)
[2025-05-13 11:08] LABS: Folate 13.7 ng/mL (> or = 4.0); Vitamin B12 382 pg/mL (200-900)
== END 2025-05-13 08:53 | disposition home or self-care (01) ==
LOC: HO.HMGCLDS 08:52
PROVIDERS: PCP Internal Medicine; Visit Provider Internal Medicine
DX: E55.9 Vitamin D deficiency, unspecified (principal); K21.9 Gastro-esophageal reflux disease without esophagitis; E66.9 Obesity, unspecified; E78.2 Mixed hyperlipidemia; I10 Essential (primary) hypertension; R73.01 Impaired fasting glucose; Z87.39 Personal history of other diseases of the musculoskeletal system and connective tissue
CPT/HCPCS: 36415; 80048; 80061; 82607; 82746; 83036; 84450; 84460; 84550

== ENCOUNTER 2025-05-15 10:43 | Outpatient (AMB) | payer MEDICARE, SELFPAY ==
--- NOTE | 2025-05-15 11:09 | A.OFFVIS_ITS ---
Intake Vital Signs 05/15/25 11:17 Height 5 ft 9 in Weight 182 lb BMI 26.9 BP 106/70 Blood Pressure Location Lt brachial Position Sitting Respiration 17 Pulse 60 Pulse Source Pulse Oximeter Temp 97.6 F Pulse Oximetry (%) 98 Oxygen Delivery Method Room Air Intake Visit Reasons: SWV G0439 hardik 05/08 Intake Note: Pt is here today for his SWV: last colonoscopy 05/21/24 Allergies No Known Allergies (No Known Allergies*) Allergy (Verified 10/29/24 12:45) Medication List - Last Reconciled 05/15/25 by Luiza Johnson MD allopurinol 300 mg PO DAILY alprazolam 0.25 mg (1/2 x 0.5 mg) PO DAILY PRN amlodipine 5 mg PO DAILY atorvastatin 10 mg PO DAILY escitalopram oxalate 20 mg PO DAILY folic acid 1 mg PO DAILY losartan 25 mg PO DAILY 90 days magnesium oxide 400 mg PO DAILY omeprazole 20 mg PO DAILY HPI SWV G0439 hardik 05/08 HPI Details SWV ? 74 year old male with history of hypertension, generalized anxiety disorder, mixed dyslipidemia, impaired fasting glucose, gastroesophageal reflux disease, presents for his? Annual Wellness Visit, subsequent visit.? He is up-to-date with his screening colonoscopy done 05/21/2024 with no polyps seen, with diverticulosis and moderate hemorrhoids noted, repeat to be done again in 10 years . His last PSA level was checked 10/30/2024 which came back within normal limits. Has fasting lipids checked 05/13/2025 together with his fasting blood sugar came back within normal limits. He is up-to-date with his flu shot and pneumonia vaccine but has not yet had his shingles vaccination. ? Medical / Social History Reviewed? Past Medical History ?Yes . ? [place] of Care / Care Team list updated ?Yes . ? Surgical/Hospitalization History ?Yes . ? Current Medications (including OTC and supplements) ?Yes . ? Family History ?Yes . ? Tobacco Control form ?Yes . ? AUDIT-C (Alcohol use) form ?Yes . ? Illicit drug use in Social History ?Yes . ? Current diagnosis of depression? ?No ? Appropriate PHQ2/PHQ9 completed ?Yes . ? Data entered by ?Veterinary Science Teacher and reviewed by provider ? Fall Risk ? Fall History? Have you had any falls with injury in the past year? ?No . ? Have you had two or more falls in the past year? ?No . ? Fall Risk Assessment: ?No falls in the past year . ? HRA filled out by the patient, reviewed by Provider and scanned. ?SWV ? Balance? Romberg ?negative. ? Tandem walk ?Yes . ? Walk and Turn ?Yes . ? Rise from sit to stand ?Yes . ?Vision? Corrective lens ?Yes ? Vision screen ? , overdue, sees [facility], states will make own appointment ?Hearing? Whisper test ?pass . ?Written Plan?Completed. See Patient Documents. He is up-to-date with his healthcare proxy done again today and already completed his MOLST form? HPI Comments History of Present Illness Details Patient is concerned that he is starting to lose his memory, unable to recall events that happened a week ago , and has difficulty remembering his appointments and thinks that he needs to do. Keeps on repeating things . Needs to be reminded to take his medication all the time. Patient's is requesting a referral to have him checked for possible dementia. He is also here for follow-up on his dyslipidemia , currently on atorvastatin 10 mg daily and hypertension, currently stable and controlled on amlodipine 5 mg daily and losartan 25 mg once a day. Please still gets episodes of heartburn symptoms despite taking famotidine, would like to back on omeprazole, has helped in the past . He still continues to beverage but not on a regular basis , he has been advised to stop completely alcohol intake Anxiety symptoms stable and controlled on escitalopram. Would like a refill prescription sent for alprazolam to take as needed for acute anxiety attacks which has been occurring infrequently. [facility] Medical History (Updated 05/15/25 @ 15:38 by Luiza Johnson MD) Memory change Onychomycosis of left great toe Thiamine deficiency Vitamin D deficiency Chronic gastroesophageal reflux disease Obesity (BMI 30.0-34.9) Hepatic encephalopathy Alcohol use disorder Hyperammonemia Chronic deep vein thrombosis (DVT) of distal vein of right lower extremity History of hepatitis B Varicose vein of leg Pain in joint, foot, left Lower leg DVT (deep venous thromboembolism), acute H/O irritable bowel syndrome Insomnia Anxiety Mixed dyslipidemia HTN (hypertension) Gout Impaired fasting glucose Surgical History History of esophagogastroduodenoscopy (EGD) H/O varicose vein stripping Hx of colonoscopy Status post rotator cuff surgery S/P lumbar microdiscectomy Family History Mother Varicose vein of leg Father No problems noted. Brother No problems noted. Brother No problems noted. Son No problems noted. Son No problems noted. Social History Household Members: Spouse Housing: House Are you a primary account executive healthcare to a significant other at home: No Do you presently have visiting nurse or other home services: No Alcohol intake: former Patient Tobacco Use Status: Current everyday Tobacco user Tobacco use type: Cigar e-Cigarette/Vaping Use: Never Used Substance Use Type: Marijuana Advance Directives Date on File: 04/26/23 Current occupational status: retired Cognitive needs: No Hearing needs: No Vision needs: Yes Questionnaire Medicare Wellness Checkup [age] What gender do you identify with?: male During the past 4 weeks, how much have you been bothered by emotional problems such as feeling anxious, depressed, irritable, sad or downhearted, and blue?: moderately During the past 4 weeks, has your physical & emotional health limited your social activities with family, friends, neighbors, or groups?: not at all During the past 4 weeks, how much bodily pain have you generally had?: mild pain During the past 4 weeks, was someone available to help you if you needed & wanted help?: yes, as much as I wanted During the past 4 weeks, what was the hardest physical activity you could do for at least 2 minutes?: heavy Can you get to places out of walking distance without help? (For eg., can you travel alone on buses, taxis or drive your car?): Yes Can you go shopping for groceries or clothes without someone's help?: Yes Can you prepare your own meals?: Yes Can you do your housework without help?: Yes Because of any health problems, do you need the help of another person with your personal care needs such as eating, bathing, dressing or getting around the house?: No Can you handle your own money without help?: Yes During the past 4 weeks, how would you rate your health in general?: very good During the past 4 weeks how have things been going for you?: very well; could hardly better Are you having difficulties driving your car?: no Do you always fasten your seat belt when you are in a car?: yes, usually During past 4 weeks, have you been bothered by the following: never: Falling or dizzy when standing up, Trouble eating well?, Teeth or denture problems?, Problems using the telephone? and Tiredness or fatigue? and often: Sexual problems? Have you fallen 2 or more times in the past year?: No Are you afraid of falling?: No Are you a smoker?: no During the past 4 weeks, how many drinks of wine, beer, or other alcoholic beverages did you have?: 2-5 drinks per week Do you exercise for about 20 minutes 3 or more times a week?: yes, some of the time Have you been given information to help with the following?: no: Hazards in your house that might hurt you? and no: Keeping track of your medications? How often do you have trouble taking medicines the way you have been told to take them?: I always take medicine as prescribed How confident are you that you can control & manage most of your health problem s?: very confident What is your race?: White Mini Mental State Exam (MMSE) Orientation What is the (year) (season) (date) (day) (month)?: year (2024), season (summer), date (Unable to recall), day and month (may) Where are we (state) (county) (town or city) (hospital) (floor)?: state ([place]), county ([place]), town or city ([place]) and hospital/clinic ([facility]) Score Score: 9 Activity of Daily Living Bathing - sponge bath, tub bath or shower: receives no assistance (gets in/out by self, if usual bathing means Dressing - getting clothes from closets & drawers, including inner/outer garments & fasteners.: gets clothes & gets completely dressed without help Toileting - going to the 'toilet room' for urine/bowel elimination & cleaning self/arranging clothes: goes to toilet room, cleans self, arranges clothes without help Transfer: moves in & out of bed and chair without help (may use support object) Continence: controls urination/bowel movements completely by self Feeding: feeds self without help Total Score: 0 Information obtained from: patient Using telephone: independent Traveling: needs assistance Shopping: needs assistance Preparing meals: needs assistance Housework: needs assistance Taking medicine: needs assistance Managing money: needs assistance PHQ-9 Over the last 2 weeks, how often have you been bothered by any of the following problems? 1. Little interest or pleasure in doing things: not at all 2. Feeling down, depressed, or hopeless: not at all 3. Trouble falling or staying asleep, or sleeping too much: not at all 4. Feeling tired or having little energy: not at all 5. Poor appetite or overeating: not at all 6. Feeling bad about yourself - or that you are a failure or have let yourself or your family down: not at all 7. Trouble concentrating on things, such as reading the newspaper or watching television: not at all 8. Moving or speaking so slowly that other people could have noticed. Or the opposite - being so fidgety or restless that you have been moving around a lot more than usual: not at all 9. Thoughts that you would be better off or of hurting yourself in some way: not at all Total score: 0 Depression Screening Interpretation: Negative Depression Screening Done: Yes 68037 - PHQ-9 Billing: Yes Source: Developed by Drs. Max Pollard, Siobhan Diop, Steven Mirza and colleagues, with an educational winsome from [employer]. Review of Systems Const All systems reviewed & are unremarkable except as noted in HPI and below Physical Exam Vital Signs: Last Vital Signs Temp 97.6 F 05/15/25 11:17 Pulse 60 05/15/25 11:17 Resp 17 05/15/25 11:17 BP 106/70 05/15/25 11:17 Pulse Ox 98 05/15/25 11:17 Oxygen Delivery Method Room Air 05/15/25 11:17 BMI result Body Mass Index 26.9 Const General: comfortable Orientation/consciousness: oriented to person, oriented to place and oriented to time Eyes General: appearance normal, both eyes and all related structures Neck Neck: Yes full ROM, Yes no lymphadenopathy and Yes supple Resp Effort & Inspection: normal respiratory effort Auscultation: clear to auscultation bilaterally Cardio Rate: regular rate Rhythm: regular rhythm Heart sounds: S1 normal heart sound present and S2 normal heart sound present GI Inspection: Yes normal to inspection Palpation (GI): Soft to palpation, nontender and no guarding Neuro General: oriented to person, oriented to place and oriented to time Psych Appearance: grossly normal and well kempt Mental Status: mental status grossly normal Speech and movement: Normal speech and movement present Affect: normal affect Attitude: cooperative Thought process: Normal thought process present Results Reviewed Results Reviewed: Laboratory Tests 05/13/25 08:56 Estimat Average Glucose 85 Hemoglobin A1c % 4.6 Name: Kelvin Chauhan Age/Sex: 74/M : 1950 Unit#: [id number] Attend Dr: Luiza Johnson MD Re05/13/25 Status: DEP REF Location: [facility] Disch: SPEC : [id number] GEORGE: 05/13/25 STATUS: COMP REQ : [id number] RECD: 05/13/25-[address]: Luiza Johnson MD COMP: 05/13/25 ENTERED: 05/13/[address]: ORDERED: Met Prof Fast, Uric, AST, ALT, Lipid Panel Test Result Flag Reference Sodium 140 135-145 mmol/L Potassium 3.9 3.3-5.1 mmol/L CL 106 96-108 mmol/L CO2 25 22-29 mmol/L Gap 13 12-20 BUN 10 9-16 mg/dL Creat 0.84 0.5-1.4 mg/dL eGFR > 60 Chronic Kidney Disease: Estimated GFR < 60 mL/min/1.73m2 Severe Kidney Disease: Estimated GFR < 15 mL/min/1.73m2 FBS 90 60-99 mg/dL Uric Acid 4.4 3.4-7.0 mg/dL CA 8.8 8.4-10.2 mg/dL AST (GOT) 34 5-37 U/L ALT (GPT) 25 0-40 U/L Triglyceride 124 <150 mg/dL Desirable Triglyceride: less than 150 mg/dL Borderline High Triglyceride 150-199 mg/dL High Triglyceride: 200-499 mg/dL Very High Triglyceride: greater than or equal to 5OO mg/dL Cholesterol 152 <200 mg/dL Desirable Cholesterol: less than 200 mg/dL Borderline High Cholesterol: 200-239 mg/dL High Cholesterol: greater than 239 mg/dL LDL Calculated 62 <100 mg/dL Desirable LDL: less than 100 mg/dL Near Optimal/Above Optimal LDL: 110-129 mg/dL Borderline High LDL: 130-159 mg/dL High LDL: 160-189 mg/dL Very High LDL: greater than or equal to 190 mg/dL HDL 66 >40 mg/dL Desirable HDL: greater than 40 mg/dL Note: This HDL assay may give artificially low results in patients with liver disease. Assessment & Plan Assessment & Plan (1) Encounter for subsequent annual wellness visit (AWV) in Medicare patient: Code(s): Z00.00 - Encounter for general adult medical examination without abnormal findings Plan: Medical wellness checklist reviewed, discussed with patient and updated. Copy gain (2) Memory change: Code(s): R41.3 - Other amnesia Plan: Neurology consult ordered (3) Anxiety: Code(s): F41.9 - Anxiety disorder, unspecified Plan: Continue escitalopram oxalate 20 mg daily, refill prescription sent 0.25 mg to take 1 tablet as needed for episodes of anxiety attacks. (4) HTN (hypertension): Code(s): I10 - Essential (primary) hypertension Qualifiers: Hypertension type: primary hypertension Qualified Code(s): I10 - Essential (primary) hypertension Plan: Blood pressure at goal of less than 130/80. Continue with current medication. Reinforced importance of following a low sodium diet, getting regular exercise, and lowering stress levels. (5) Mixed dyslipidemia: Code(s): E78.2 - Mixed hyperlipidemia Plan: Reviewed recent fasting labs with patient which showed lipids within normal limits, continued atorvastatin 10 mg daily, reinforced importance of following low-cholesterol diet and getting regular exercise. (6) Chronic gastroesophageal reflux disease: Code(s): K21.9 - Gastro-esophageal reflux disease without esophagitis Plan: Prescription sent for omeprazole 20 mg per capsule to take once a day only as needed for episodes of heartburn. Advised adherence to healthy eating habits avoidance of foods that trigger heartburn and avoid alcohol intake (7) Advanced directives, counseling/discussion: Code(s): Z71.89 - Other specified counseling Plan: Initiated the conversation about Advanced Directives. Advanced Directives help patients prepare for current and future decisions about their medical treatment and place of care. Discussed with patient that it is a process where a patients current condition and prognosis are reviewed, their wishes for information regarding their illness are elicited, and likely medical dilemmas are presented and options discussed. Patient already completed MOLST form in the past, healthcare proxy updated. These forms can be amended as needed, reviewed yearly and make changes as needed Orders: Referrals Neurology Referral R41.3 - Other amnesia Medications: New omeprazole 20 mg PO DAILY 30 caps 0RF Refilled alprazolam 0.25 mg (1/2 x 0.5 mg) PO DAILY PRN 20 tabs 0RF acute anxiety attacks Quality Reporting (2019) Depression/Bipolar (159/160/161/177) PHQ-9: Total score: 0 Coding Level of Care Code Medicare Subsequent (G0439) Est Pt Level 4 (80692) Diagnoses Encounter for subsequent annual wellness visit (AWV) in Medicare patient Z00.00 Memory change R41.3 Anxiety F41.9 Primary hypertension I10 Hypertension type: primary hypertension Mixed dyslipidemia E78.2 Chronic gastroesophageal reflux disease K21.9 Advanced directives, counseling/discussion Z71.89 CPT Codes Advance Care Planning - Time spent: 16-45 minutes ([id number]) Additional Codes PHQ-9 - 30930 - PHQ-9 Billing: Yes ([id number]) Advance Care Planning Advance Care Planning discussion: Completed/Scanned Date of discussion: 05/15/25 Who was present: Patient Forms completed: Health Care Proxy Time spent: 16-45 minutes Actual minutes spent: 3
[2025-05-15 11:17] VITALS: BP 106/70; PULSE 60; RESP 17; TEMP 36.4; O2SAT 98; BMI 26.9
--- OUTSIDE RECORDS SUMMARY | 2025-05-15 11:24 | XMS_ITS | Patient Health Record ---
Author Organization [facility] Address [address] [place] [address] Care Team Providers Care Assembling Motor Builder Name Role Phone Alex ALY, Luiza Null Primary Care Provider Un available BlackCristina Unavailable [phone] Allergies No Known Allergies Reason For Referral No Information Medications Medication SIG (Take, Route, Frequency, Duration) Notes Start Date End Date Status Magnesium 250 MG 1 tablet with a meal Orally Once a day Active Pantoprazole Sodium 40 MG 1 tablet Orall y Once a day; Duration: 30 day(s) Not-Taking Escitalopram Oxalate 10 MG 1 tablet Orally Once a day Active Nabumetone 500 MG 1 tablet Orally Twic e a day prn Not-Taking hydrOXYzine HCl 25 MG 1 tablet as needed Orally Once a day prn Not-Taking Xarelto 20 MG 1 tablet with food Orally Once a day prn Not-Taking Indomethacin 50 MG 1 capsule with food Orally Twice a day; Duration: 30 day(s) 08/08/2013 Not-Taking Allopurinol 300 MG 1 tablet Orally Once a day; Duration: 30 day(s) Active Gemfibrozil 600 MG Orally Twice a day Not-Taking Atorvastatin Calcium 10 MG Orally Once a day Active ALPRAZolam 0.5 MG as directed Orally Not-Taking Losartan Potassium 25 MG Orally Active Zolpidem Tartrate 10 MG 1 tablet at bedt candace as needed Orally Once a day Not-Taking Folic Acid 1 MG 1 tablet Orally Once a day Active Multivitamin Not-Gustabo ing Vitamin B-1 100 MG 1 tablet Orally Once a day Not-Taking Lisinopril 5 MG as directed Orally O nce a day Not-Taking Omeprazole 20 MG 1 capsule Orally Onc e a day; Duration: 30 day(s) Not-Taking Terbinafine HCl 250 MG TAKE 1 TABLET ORA LLY ONCE A DAY FOR 7 DAYS DAYS THEN STOP FOR 3 WEEKS REPEAT CYCLE 90 DAYS; Duration: 84 Active amLODIPine Besylate 5 MG as directed Ora lly Once a day Active Sertraline HCl 50 MG 1 tablet Orally Onc e a day 10/20/2017 Not-Taking Social History Tobacco Use: Social History Observation Description Date Details (start date - stop date) Never Smoker NA - NA Alcohol Screen Question Answer Notes Did you [...] o ne cigar every now and then Tobacco Control (Standard) Question Answer Notes Tobacco use: Nonsmoker Problems Problem Type SNOMED Code ICD Code Onset Dates Problem Status W/U Status Risk Notes Problem Plantar wart (08665742) Plantar wart (B07.0) Active confirmed Vital Signs Blood pressure diastolic 75 mm Hg 04/22/2025 Height 5ft9in in 04/22/2025 Blood pressure systolic 118 mm Hg 04/22/2025 Weight 180 lbs 04/22/2025 BMI 26.58 kg/m2 04/22/2025 Procedures Procedure Date Ordered Date Performed Result Body Sit e 62601-Clxd Destruction, -08/06/2024 N/A 10807-Enei Destruction, -11/22/2024 N/A 57636-Bnsp Destruction, -04/22/2025 N/A Encounters Encounter Location Date Provider Diagnosis [facility] [address] 08/06/2024 Cristina Black Tinea unguium B35.1 ; Pain in left toe(s) M79.675 ; Left foot pain M79.672 and Plantar wart B07.[address] [facility] [address] 11/22/2024 Cristina Black Tinea unguium B35.1 ; Pain in left toe(s) M79.675 ; Left foot pain M79.672 and Plantar wart B07.0 [facility] [address] 04/22/2025 Cristina Aguila Tinea unguium B35.1 ; Pain in left toe(s) M79.675 ; Left foot pain M79.672 ; Plantar wart B07.0 and Pain in right toe(s) M79.[address] [address] 06/08/2024 Cristina Black [address] [address] 08/06/2024 Cristina Aguila Assessments Encounter Date Diagnosis (ICD Code) Assessment Notes Treatment Notes Treatment Clinical Notes Section Notes 08/06/2024 Tinea unguium (ICD-10 - B35.1) 11/22/2024 Tinea unguium (ICD-10 - B35.1) 04/22/2025 Tinea unguium (ICD-10 - B35.1) 04/22/2025 Pain in left toe(s) (ICD-10 - M79.675) 11/22/2024 Pain in left toe(s) (ICD-10 - M79.675) 08/06/2024 Pain in left toe(s) (ICD-10 - M79.675) 08/06/2024 Left foot pain (ICD-10 - M79.672) 11/22/2024 Left foot pain (ICD-10 - M79.672) 04/22/2025 Left foot pain (ICD-10 - M79.672) 04/22/2025 Pain in right toe(s) (ICD-10 - M79.674) 04/22/2025 Plantar wart (ICD-10 - B07.0) 11/22/2024 Plantar wart (ICD-10 - B07.0) 08/06/2024 Plantar wart (ICD-10 - B07.0) Plan Of Treatment Pending Test Test Name Order Date Tc99 3 phase Bone Scan 10/24/2017 *Uric Acid, Serum 08/08/2013 *Sedimentation Rate-Westergren 3 *Liver Function Test (LFT) 10/03/2023 *Liver Function Test (LFT) 04/26/2024 X ray : Foot, left 3V 08/08/2013 14186-Yrzs Destruction, 1-14 08/06/2024 69083-Avii Destruction, 1-14 11/22/2024 69907-Ovva Destruction, 1-14 04/22/2025 Nail Panel 09/26/2023 Insurance Providers Payer Name Payer Address Payer Phone Subscriber Number Group Number Insured Name Patient Relationship to Insured Coverage Start Date Coverage End Date [employer]age [address] [facility] [place], [place] [address] [id number] Kelvin Chauhan Self - patient is the insured 6 Medical (General) History Medical History History ICD Code Gout reflux hypertension chicken pox measles Hepatitis B Anxiety Warts Joint implants/screws raynauds disease Vascular phlebitis (clots) Surgical History Surgery Date(Month/Year) back surgery 04/2012 rotator cuff tear repair 2015 varicose vein stripping
--- OUTSIDE RECORDS SUMMARY | 2025-05-15 11:24 | XMS_ITS | Patient Health Record ---
Author Organization [facility] Address [address] [place] [address] Care Team Providers Care Senior Speech Pathologist Name Role Phone Alex ALY, Luiza Primary [...] Problem Status W/U Status Risk Notes Problem 558897326 Colon cancer screening (Z12.11) Active confirmed Problem 951595174 Gastroesophageal reflux disease without esophagitis (K21.9) Active confirmed Problem 886832935 Increased ammoni a level (R79.89) Active confirmed Problem 506617681 Altered mental status, unspecified altered mental status type (R41.82) Active confirmed Plan Of Treatment Future Test Test Name Order Date COLONOSCOPY 03/16/2012 COLONOSCOPY 08/03/2013 COLONOSCOPY 08/23/2018 Insurance Providers Payer Name Payer Address Payer Phone Subscriber Number Group Number Insured Name Patient Relationship to Insured Coverage Start Date Coverage End Date MEDICARE OF [place] [address] [place] [address] [id number] TIMOTHY EDGAR Self - patient is the insured [facility] [address] [place] [phone] [id number] TIMOTHY EDGAR Self - patient is the insured Medical (General) History Medical History History ICD Code hypertension gout elevated cholesterol esophageal reflux Denies [place],DM,CVA,Lung disease,renal dise ase Surgical History Surgery Date(Month/Year) back surgery 2012 rotator cuff left 2014 Hospitalization History Reason Date(Month/Year) amanette may
--- OUTSIDE RECORDS SUMMARY | 2025-05-15 11:24 | XMS_ITS | Clinical Summary ---
Author Organization [facility] Facility Address [address] [address] Care Team Providers Care Sewer Contractor Name Role Phone Didier Johnson MD Primary Care Provider [phone]- [phone] Allergies No known active allergies Medications pantoprazole (PROTONIX) 40 MG EC tablet Take 40 mg by mouth 1 (one) time each day 11/24/2022 Active folic acid (FOLVITE) 1 MG tablet Take 1,000 mcg by mouth 1 (one) time each day 10/11/2022 Active famotidine (PEPCID) 40 MG tablet Take 40 mg by mouth 11/12/2022 Active escitalopram (LEXAPRO) 20 MG tablet Take 20 mg by mouth 1 (one) time each day 10/18/2022 Active D3-50 1.25 MG (68088 UT) capsule Take 50,000 Units by mouth 1 (one) time per week 10/19/2022 Active ALPRAZolam (XANAX) 0.25 MG tablet TAKE 1 TABLET ( 0.25 MG ) BY MOUTH DAILY NEEDED FOR ACUTE ANXIETY ATTACKS 10/18/2022 Active allopurinol (ZYLOPRIM) 300 MG tablet Take 300 mg by mouth 1 (one) time each day Active losartan (COZAAR) 25 MG tablet Take 25 mg by mouth 1 (one) time each day Active atorvastatin (LIPITOR) 10 MG tablet Take 10 mg by mouth 1 (one) time each day Active hydrOXYzine (ATARAX) 25 MG tablet Take 25 mg by mouth 3 (three) times a day if needed for itching Active nabumetone (RELAFEN) 500 MG tablet Take 500 mg by mouth in the morning and 500 mg in the evening. Active amLODIPine (NORVASC) 5 MG tablet Take 5 mg by mouth 1 (one) time each day Active Active Problems Problem Noted Date Diagnosed Date Hypomagnesemia 03/03/2023 Screening for malignant neoplasm of colon 2022 Gastro-esophageal reflux disease without esophag itis 12/07/2022 Blood chemistry outside reference range 12/07/19 23 Altered mental status 12/07/2022 Viral hepatitis C 12/07/2022 Hypertensive disorder 12/07/2022 Hyperlipidemia 12/07/2022 Gout 12/07/2022 Backache 12/07/2022 Anxiety 12/07/2022 Immunizations Immunization Administration Dates Next Due Influenza, Unspecified 07/19/2018 Tdap 08/19/2010 Social History Tobacco Use Types Packs/Day Years Used Date Smoking Tobacco: Some Days Cigars Smokeless Tobacco: Never Tobacco Cessation:Ready to Q uit: Not Asked; Counseling Given: Not Answered Alcohol Use Standard Drinks/Week Comments Not Currently 0 (1 standard drink = 0.6 oz pur e alcohol) Sex and Gender Information Value Date Recorded Sex Assigned at Not on file Legal Sex Male 8:20 AM EST Gender Identity Not on file Sexual Orientation Not on file Last Filed Vital Signs Vital Sign Reading Time Taken Comments Blood Pressure 127/65 12/07/2022 5:31 PM EST Pulse 68 12/07/2022 5:31 PM EST Temperature - - Respiratory Rate - - Oxygen Saturation 98% 12/07/2022 5:31 PM EST Inhaled Oxygen Concentration - - Weight 94.8 kg (209 lb) 12/07/2022 5:31 PM EST Height - - Body Mass Index - - Plan of Treatment Health Maintenance Due Date Last Done Comments Pneumococcal Vaccine: 50+ Ye ars (1 of 2 - PCV) 1969 Colorectal Cancer Screening: Annual FOBT 1999 Colorectal Cancer Screening: Colonoscopy 1999 Colorectal Cancer Screening: Sigmoidoscopy 1999 Influenza Vaccine (Season Ended) 2025 07/19/20 18 Hepatitis B Vaccine Aged Out No longe r eligible based on patient's age to complete this topic Insurance Medicare [facility] Medicare [facility] Care Teams Sewer Contractor Relationship Specialty Start Date End Date Didier Johnson MD [address] [place] [id number] PCP - General Internal Medicine 12/01/22
== END 2025-05-15 12:00 | disposition home or self-care (01) ==
LOC: HO.HMCC 10:44
PROVIDERS: PCP Internal Medicine; Visit Provider Internal Medicine
DX: Z00.00 Encounter for general adult medical examination without abnormal findings (principal); R41.3 Other amnesia; F41.9 Anxiety disorder, unspecified; I10 Essential (primary) hypertension; E78.2 Mixed hyperlipidemia; K21.9 Gastro-esophageal reflux disease without esophagitis; Z71.89 Other specified counseling

== ENCOUNTER → 2025-05-15 10:43 | Outpatient (BNVA) | payer MEDICARE, SELFPAY | PROVIDERS: PCP Internal Medicine; Visit Provider Internal Medicine | DX: Z00.00 Encounter for general adult medical examination without abnormal findings (principal); I10 Essential (primary) hypertension; F41.1 Generalized anxiety disorder; E78.2 Mixed hyperlipidemia; K21.9 Gastro-esophageal reflux disease without esophagitis; R41.3 Other amnesia; Z71.89 Other specified counseling | CPT/HCPCS: 96127; 99212 ==

== ENCOUNTER 2025-08-22 07:18 | Outpatient (AMB) | payer MEDICARE, SELFPAY ==
--- NOTE | 2025-08-22 07:24 | A.OFFVIS_ITS ---
Vital Signs 08/22/25 07:25 Height 5 ft 9 in Weight 181 lb 8 oz BMI 26.8 BP 110/64 Blood Pressure Location Rt brachial Position Sitting Pulse 48 L Pulse Source Pulse Oximeter Pulse Oximetry (%) 99 Oxygen Delivery Method Room Air Intake Visit Reasons: INP-Amnesia Intake Note: Amnesia Proposal Consultant Required: No Accompanied by: Spouse Allergies No Known Allergies (No Known Allergies*) Allergy (Verified 08/22/25 07:25) Medication List - Last Reconciled 08/22/25 by Sarah Haji MD allopurinol 300 mg PO DAILY alprazolam 0.25 mg (1/2 x 0.5 mg) PO DAILY PRN amlodipine 5 mg PO DAILY atorvastatin 10 mg PO DAILY escitalopram oxalate 20 mg PO DAILY losartan 25 mg PO DAILY 90 days magnesium oxide 400 mg PO DAILY omeprazole 20 mg PO DAILY PRN HPI Comments Details: 74y/o Right handed male comes for evaluation of short term memory for about 1 year. He is accompanied by his Mary Anne who helps with history. He misplaces things around house, searching for keys, glasses etc. He frequently repeats himself.he forgets conversations and keeps notes for all important appointments. he gets easily confused with instructions - may get the date or time wrong. He has trouble with TV remote.He takes his meds - uses a pill box. He manages his finances with his . No change in behavior- gets upset when he is confused. No head injury No depression. He has h/o anxiety .He was a heavy drinker , had hepatic encephelopathy 3 years ago and quit drinking. He smokes 1 joint a day for relaxation. 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 His older brother - 77 yrs old has dementia. He used to be a heavy snorer. [facility], [facility] Medical History (Updated 08/22/25 @ 08:06 by Sarah Haji MD) Mild cognitive impairment Memory change Onychomycosis of left great toe Thiamine deficiency Vitamin D deficiency Chronic gastroesophageal reflux disease Obesity (BMI 30.0-34.9) Hepatic encephalopathy Alcohol use disorder Hyperammonemia Chronic deep vein thrombosis (DVT) of distal vein of right lower extremity History of hepatitis B Varicose vein of leg Pain in joint, foot, left Lower leg DVT (deep venous thromboembolism), acute H/O irritable bowel syndrome Insomnia Anxiety Mixed dyslipidemia HTN (hypertension) Gout Impaired fasting glucose Surgical History History of esophagogastroduodenoscopy (EGD) H/O varicose vein stripping Hx of colonoscopy Status post rotator cuff surgery S/P lumbar microdiscectomy Family History Mother Varicose vein of leg Father No problems noted. Brother No problems noted. Brother No problems noted. Son No problems noted. Son No problems noted. Social History Household Members: Spouse Housing: House Are you a primary care team coordinator scheduler to a significant other at home: No Do you presently have visiting nurse or other home services: No Alcohol intake: former Patient Tobacco Use Status: Current everyday Tobacco user Tobacco use type: Cigar e-Cigarette/Vaping Use: Never Used Substance Use Type: Marijuana Advance Directives Date on File: 04/26/23 Current occupational status: retired Cognitive needs: No Hearing needs: No Vision needs: Yes Physical Exam Vital Signs: Last Vital Signs Pulse 48 L 08/22/25 07:25 BP 110/64 08/22/25 07:25 Pulse Ox 99 08/22/25 07:25 Oxygen Delivery Method Room Air 08/22/25 07:25 BMI result Body Mass Index 26.8 Const General: cooperative, healthy appearing, comfortable and no acute distress Nutritional Appearance: average body habitus Orientation/consciousness: patient oriented x3 Eyes Pupils: Equal, round and reactive pupils present Neuro General: patient oriented x3, gait normal, tone normal, moves all extremities and no focal motor deficits Cranial nerves: Yes Facial sensation intact/muscles of mastication intact, Yes Equal, round and reactive pupils present, Yes Bilaterally intact EOM present, Yes Nystagmus not present, Yes Normal facial strength present, Yes Midline tongue present, Yes Symmetric palate elevation present and Yes Ability to bilaterally elevate shoulders present Cognition (Neuro): normal cognition Gait exam (Neuro): Normal gait present Motor exam (neuro): 5/5 motor strength present throughout and Normal motor muscle tone present throughout Deep tendon reflexes (DTR's): Right triceps reflex intensity grade: 2+, Left triceps reflex intensity grade: 2+, Rt Biceps (C5, C6): 2+, Left biceps reflex intensity grade: 2+, Right brachioradialis reflex intensity grade: 2+, Left brachioradialis reflex intensity grade: 2+, Right patellar reflex intensity grade: 2+ and Left patellar reflex intensity grade: 2+ Coordination: [id number]-[id number] test normal Orientation What is the (year) (season) (date) (day) (month)?: year, season, date, day and month Where are we (state) (county) (town or city) (hospital) (floor)?: state, county, town or city, hospital/clinic and floor Registration Name of 3 unrelated objects clearly and slowly, then ask patient to repeat all 3 of them. (1st repeat determines score. Make sure they can repeat all three): object 1, object 2 and object 3 Attention & Calculation (CHOOSE ONE) Spell WORLD backwards (DLROW): 5 letters Recall Ask patient to repeat the 3 items from question #3.: object 1 and object 2 Language Show patient a wristwatch & ask what it is. Repeat for pencil.: watch and pencil Ask the patient to repeat the phrase 'No ifs, ands, or buts' after you.: correct Ask the patient to 'take a piece of paper with their right hand' 'fold paper in half' 'place paper on floor': take paper in right hand, fold paper in half and place paper on floor Print the sentence 'CLOSE YOUR EYES' on a piece. If patient actually closes eyes then score.: followed written direction Give patient a blank piece of paper & ask to write a sentence. Score if it contains a noun & verb.: sentence contains subject and verb Ask patient to copy figure of intersecting pentagons exactly. Score if all 10 angles & 2 intersects are included.: all 10 angles present & 2 are intersected Score Score: 29 Assessment & Plan Assessment & Plan (1) Mild cognitive impairment: Comment: ? vascular Code(s): G384 - Mild cognitive impairment of uncertain or unknown etiology Category: Medical Plan I will check his TSH homocysteine ESR CBC MRI brain with neuroquant Speech - for cognitive eval and therapy Orders: Orders Complete Blood Count Auto Diff Today G384 - Mild cognitive impairment of uncertain or unknown etiology TSH reflex Free T4 Today G3.84 - Mild cognitive impairment of uncertain or unknown etiology Erythrocyte Sedimentation Rate Today G31.84 - Mild cognitive impairment of uncertain or unknown etiology Homocysteine Today G31.84 - Mild cognitive impairment of uncertain or unknown etiology MR brain wo con w neuroquant Today G31.84 - Mild cognitive impairment of uncertain or unknown etiology Referrals Speech and Hearing Referral G31.84 - Mild cognitive impairment of uncertain or unknown etiology Coding Level of Care Code New Pt Level 4 (15022) Complex EM visit Add On G2211 Diagnoses Mild cognitive impairment G31.84
[2025-08-22 07:25] VITALS: BP 110/64; PULSE 48; O2SAT 99; BMI 26.8
== END 2025-08-22 08:15 | disposition home or self-care (01) ==
LOC: HO.HSMS 07:19
PROVIDERS: PCP Internal Medicine; Visit Provider Psychiatry & Neurology Neurology
DX: G31.84 Mild cognitive impairment of uncertain or unknown etiology (principal)
CPT/HCPCS: 99204; G2211

== ENCOUNTER 2025-08-22 07:18 | Outpatient (REF) | payer MEDICARE, SELFPAY ==
[2025-08-22 13:41] LABS: MANUAL DIFF FLAG NO
[2025-08-22 14:12] LABS: Hematocrit 41.9 % (42.0-52.0); Hemoglobin 13.8 g/dl (14.0-18.0); Imm Gran Abs Auto 0.02 X10*3/uL (0.00-0.03); Imm Gran Pct Auto 0.3 % (0.0-0.4); Lymphocytes Absolute Auto 2.3 X10*3/uL (1.2-4.9); Mean Corpuscular HGB Conc 32.9 g/dl (31.0-36.0); Mean Corpuscular Hemoglobin 33.3 pg (27.0-33.0); Mean Corpuscular Volume 101.0 fL (80.0-98.0); NRBC Abs Auto 0.000 X10*3/uL (0.0-0.012); NRBC Pct Auto 0.0 /100WBC (0.0-0.2); Platelet Count 148 X10*3/uL (160-400); Red Blood Count 4.15 X10*6/uL (4.60-5.80); White Blood Count 6.3 X10*3/uL (4.8-10.8)
== END 2025-08-22 07:19 | disposition home or self-care (01) ==
LOC: HO.HKASLDS 07:18
PROVIDERS: PCP Internal Medicine; Visit Provider Psychiatry & Neurology Neurology
DX: G31.84 Mild cognitive impairment of uncertain or unknown etiology (principal)
CPT/HCPCS: 36415; 83090; 84443; 85025; 85652; 99202

== ENCOUNTER 2025-09-03 12:17 | Outpatient (AMB) | payer MEDICARE, SELFPAY ==
--- OUTSIDE RECORDS SUMMARY | 2024-04-05 07:00 | XMS_ITS ---
Author Organization [facility] Address [address] [place] [address] Care Team Providers Care Lap Machine Tender Name Role Phone Alex ALY, Luiza Null Primary Care Provider Un available Cristina Aguila Unavailable [phone] Carmona Encounters Encounter Location Date Provider Diagnosis [facility] [address] [place] [address] 04/05/2024 Cristina Black Plan Of Treatment No Information Progress Notes * Kelvin EDGAR DDOB:[birth year] (74 yo M)Acc No.[id number]:04/05/2024 Progress Note Patient: Lambert FLEMING Kelvin Harrison Provider: Edy Aguila DPM :1950 A ge:73 Y S ex:Male Date:04/05/2024 Address:[address] [place], [place] [id number] Pcp:Bianka Perez Subjective: * Chief Complaints: * [...] DPM Date: 0 04/05/2024 Generated for Printi ng/Faxing/eTransmitting on: 1 03:48 PM EDT
--- NOTE | 2025-09-03 12:23 | AM.OFFWIN_ITS ---
Intake Vital Signs 09/03/25 12:24 Height 5 ft 9 in Weight 178 lb BMI 26.3 BP 120/68 Blood Pressure Location Lt brachial Position Sitting Pulse 54 Pulse Source Pulse Oximeter Temp 97.9 F Temp Source Oral Pulse Oximetry (%) 98 Oxygen Delivery Method Room Air Intake Visit Reasons: EP-rt knee pain & swollen Intake Note: pt presents with right knee pain and swelling x 2.5wks without injury Patient Tobacco Use Status: Current everyday Tobacco user Allergies No Known Allergies (No Known Allergies*) Allergy (Verified 09/03/25 12:24) Do you need a note to return to daycare/school/sports/work: No HPI HPI Comments History of Present Illness Details History of Present Illness - The patient is a 74-year-old male pres enting with right knee pain. - The knee pain began approximately two and a half weeks ago without any known injury or trauma. - The patient denies any recent falls, t wists, or other inciting events. - The knee became swollen and painful engel ddenly. - The patient has a history of gout and is currently taking 300 mg Allopurinol daily for management. - The patient reports that the swelling has decreased slightly over the past few days. - The patient denies any tick bites, fev ers, or rashes recently. - The patient has not used NSAIDs recent ly but reports that they have been effective in the past. - The patient denies any pain upon palpa tion around the knee area. - The patient denies having diabetes or stomach ulcers. Review of Systems - Musculoskeletal: Reports right knee pa in and swelling. Denies pain upon palpation. - Integumentary: Denies recent tick bite s, rashes. - Constitutional: Denies fever. - Endocrine: Denies diabetes. - Gastrointestinal: Denies stomach ulcer s. All systems reviewed and are unremarkable except as noted in HPI Physical Exam General: Cooperative, healthy appearing, comfortable, no acute distress and well developed Orientation: Patient oriented x3 Limitations: ambulates normally Head: Normal to inspection Ears: Hearing grossly normal bilaterally Face and sinus: Normal facial exam Eyes: Appearance normal, both eyes and all related structures Neck: Normal visual inspection, full ROM Respiratory: Normal respiratory effort and able to speak in complete sentences. Skin: No rashes or lesions noted Neuro: Patient oriented x3, gait normal Back/spine: no TTP cervical, thoracic or lumbar spine Extremities: Right knee with slight medial edema, negative patellar ballottment, no TTP anterior or posterior knee, neg anterior and posterior drawer test, positive medial joint laxity, negative lateral joint laxity, full ROM, no skin changes. Left knee with normal ROM and no skin changes, no edema PFSH Medical History (Updated 09/03/25 @ 12:45 by La Lacey PA-C) Mild cognitive impairment Memory change Onychomycosis of left great toe Thiamine deficiency Vitamin D deficiency Chronic gastroesophageal reflux disease Obesity (BMI 30.0-34.9) Hepatic encephalopathy Alcohol use disorder Hyperammonemia Chronic deep vein thrombosis (DVT) of distal vein of right lower extremity History of hepatitis B Varicose vein of leg Pain in joint, foot, left Lower leg DVT (deep venous thromboembolism), acute H/O irritable bowel syndrome Insomnia Anxiety Mixed dyslipidemia HTN (hypertension) Gout Impaired fasting glucose Surgical History History of esophagogastroduodenoscopy (EGD) H/O varicose vein stripping Hx of colonoscopy Status post rotator cuff surgery S/P lumbar microdiscectomy Family History Mother Varicose vein of leg Father No problems noted. Brother No problems noted. Brother No problems noted. Son No problems noted. Son No problems noted. Social History Household Members: Spouse Housing: House Are you a primary progressive care manager to a significant other at home: No Do you presently have visiting nurse or other home services: No Alcohol intake: former Patient Tobacco Use Status: Current everyday Tobacco user Tobacco use type: Cigar e-Cigarette/Vaping Use: Never Used Substance Use Type: Marijuana Advance Directives Date on File: 04/26/23 Current occupational status: retired Cognitive needs: No Hearing needs: No Vision needs: Yes Physical Exam Vital Signs: Last Vital Signs Temp 97.9 F 09/03/25 12:24 Pulse 54 09/03/25 12:24 BP 120/68 09/03/25 12:24 Pulse Ox 98 09/03/25 12:24 Oxygen Delivery Method Room Air 09/03/25 12:24 BMI result Body Mass Index 26.3 Assessment & Plan Assessment & Plan (1) Right medial knee pain: Code(s): M25.561 - Pain in right knee Plan: Assessment and Plan Right knee osteoarthritis vs MCL sprain vs gout vs other; less likely Lyme as no tick bites, rashes or fevers. - The patient presents with right knee pain and swelling without a history of trauma. - The plan includes administering a prednisone burst to address potential gout or musculoskeletal pain, recommending rest, ice, and compression wrap for support. Reji wrapped knee for patient and educated him on how to wrap it. - An orthopedic referral has been sent if symptoms persist. - Continue Allopurinol Patient was informed and verbally consented to the use of an ambient scribe for clinic note documentation during this visit. Orders: Referrals Orthopedics Referral M25.561 - Pain in right knee Medications: New prednisone 40 mg (2 x 20 mg) PO QAM 10 tabs 0RF Coding Level of Care Code Est Pt Level 3 (73693) Diagnoses Right medial knee pain M25.561
[2025-09-03 12:24] VITALS: BP 120/68; PULSE 54; TEMP 36.6; O2SAT 98; BMI 26.3
--- OUTSIDE RECORDS SUMMARY | 2025-09-03 15:48 | XMS_ITS | Patient Health Record ---
Author Organization [facility] Address [address] [place] [id number] Care Team Providers Care Production Packager Name Role Phone Alex ALY, Luiza Primary [...] with a kael l Orally Once a day; Duration: 30 day(s) Active Folic Acid Active Escitalopram [...] Problem Status W/U Status Risk Notes Problem Colon cancer screening (775134029) Colon cancer screening (Z12.11) Active confirmed Problem Gastroesophageal reflux disease without esophagitis (149356509) Gastroesophageal reflux disease without esophagitis (K21.9) Active confirmed Problem Blood chemistry abnormal (369562068) Increased ammonia level (R79.89) Active confirmed Problem Altered mental status (938165177) Altered mental status, unspecified altered mental status type (R41.82) Active confirmed Plan Of Treatment Future Test Test Name Order Date COLONOSCOPY 03/16/2012 COLONOSCOPY 08/03/2013 COLONOSCOPY 08/23/2018 Insurance Providers Payer Name Payer Address Payer Phone Subscriber Number Group Number Insured Name Patient Relationship to Insured Coverage Start Date Coverage End Date MEDICARE OF [place] [address] [place] [address] [phone] [id number] TIMOTHY EDGAR Self - [facility] the insured [facility] [address] [place] [address] [id number] TIMOTHY EDGAR Self - patient is the insured Medical (General) History Medical History History ICD Code hypertension gout elevated cholesterol esophageal reflux Denies [place],DM,CVA,Lung disease,renal dise ase Surgical History Surgery Date(Month/Year) back surgery 2012 rotator cuff left 2015 Hospitalization History Reason Date(Month/Year) xavier díaz
--- OUTSIDE RECORDS SUMMARY | 2025-09-03 15:49 | XMS_ITS | Clinical Summary ---
Author Organization [facility] Facility Address [address] [address] Care Team Providers Care Stage Producer Name Role Phone Didier Johnson MD Primary Care Provider [phone]- [phone] Allergies No known active allergies Medications pantoprazole [...] each day 10/18/2022 Active D3-50 1.25 MG (76936 UT) capsule Take 50,000 Units by mouth [...] Colorectal Cancer Screening: Sigmoidoscopy 1999 Influenza Vaccine (#1) 2025 07/19/2018 Hepatitis B Vaccine Aged Out No longe r eligible based on patient's age to complete this topic Insurance Medicare [facility] Medicare [facility] Care Teams Stage Producer Relationship Specialty Start Date End Date Didier Johnson MD [address] [place] [id number] PCP - General Internal Medicine 12/01/22
--- OUTSIDE RECORDS SUMMARY | 2025-09-03 15:49 | XMS_ITS | Patient Health Record ---
Author Organization [facility] Address [address] [place] [address] Care Team Providers Care Air Brake Rigger Name Role Phone Alex ALY, Luiza Null Primary Care Provider Un available BlackCristina Unavailable [phone] Allergies No Known Allergies Reason For Referral [...] W/U Status Risk Notes Problem Plantar wart (87912875) Plantar wart (B07.0) Active confirmed Vital Signs Blood pressure diastolic 75 mm Hg 04/22/2025 Height 5ft9in in 04/22/2025 Blood pressure systolic 118 mm Hg 04/22/2025 Weight 180 lbs 04/22/2025 BMI 26.58 kg/m2 04/22/2025 Procedures Procedure Date Ordered Date Performed Result Body Sit e 10379-Duia Destruction, -11/22/2024 N/A 51303-Lnfx Destruction, 11-2704/22/2025 N/A Encounters Encounter Location Date Provider Diagnosis [facility] [address] [address] 11/22/2024 Cristina Black Tinea unguium B35.1 ; Pain in left toe(s) M79.675 ; Left foot pain M79.672 and Plantar wart B07.0 [facility] [address] [address] 04/22/2025 Cristina Black Tinea unguium B35.1 ; Pain in left toe(s) M79.675 ; Left foot pain M79.672 ; Plantar wart B07.0 and Pain in right toe(s) M79.674 Assessments Encounter Date Diagnosis (ICD Code) Assessment Notes Treatment Notes Treatment Clinical Notes Section Notes 11/22/2024 Tinea unguium (ICD-10 - B35.1) 04/22/2025 Tinea unguium (ICD-10 - B35.1) 04/22/2025 Pain in left toe(s) (ICD-10 - M79.675) 11/22/2024 Pain in left toe(s) (ICD-10 - M79.675) 11/22/2024 Left foot pain (ICD-10 - M79.672) 04/22/2025 Left foot pain (ICD-10 - M79.672) 04/22/2025 Pain in right toe(s) (ICD-10 - M79.674) 04/22/2025 Plantar wart (ICD-10 - B07.0) 11/22/2024 Plantar wart (ICD-10 - B07.0) Plan Of Treatment Pending Test Test Name Order Date Tc99 3 phase Bone Scan 10/24/2017 *Uric Acid, Serum 08/08/2013 *Sedimentation Rate-Westergren 3 *Liver Function Test (LFT) 10/03/2023 *Liver Function Test (LFT) 04/26/2024 X ray : Foot, left 3V 08/08/2013 67826-Wygc Destruction, 1-14 08/06/2024 21538-Ehmg Destruction, 1-14 11/22/2024 87044-Jyng Destruction, 1-14 04/22/2025 Nail Panel 09/26/2023 Insurance Providers Payer Name Payer Address Payer Phone Subscriber Number Group Number Insured Name Patient Relationship to Insured Coverage Start Date Coverage End Date [employer]age [address] [facility] [address] [id number] Kelvin Chauhan Self - patient is the insured 6 Medical (General) History Medical History History ICD Code Gout reflux hypertension chicken pox measles Hepatitis B Anxiety Warts Joint implants/screws raynauds disease Vascular phlebitis (clots) Surgical History Surgery Date(Month/Year) back surgery 04/2012 rotator cuff tear repair 2014 varicose vein stripping
== END 2025-09-03 12:56 | disposition home or self-care (01) ==
PROVIDERS: PCP Internal Medicine; Visit Provider Physician Assistant
DX: M25.561 Pain in right knee (principal)

== ENCOUNTER → 2025-09-03 12:17 | Outpatient (BNVA) | payer MEDICARE, SELFPAY | PROVIDERS: PCP Internal Medicine; Visit Provider Physician Assistant | DX: M25.561 Pain in right knee (principal) | CPT/HCPCS: 99212 ==

== ENCOUNTER 2025-09-29 10:29 | Outpatient (REF) | payer MEDICARE, SELFPAY ==
--- OUTSIDE RECORDS SUMMARY | 2024-04-05 06:00 | XMS_ITS ---
Author Organization [facility] Address [address] [place] [address] Care Team Providers Care Opal Miner Name Role Phone Alex ALY, Luiza Null Primary Care Provider Un available Bebo Aguilamie Unavailable [phone] Carmona Encounters Encounter Location Date Provider Diagnosis [facility] [address] [place] [address] 04/05/2024 Cristina Black Plan Of Treatment No Information Progress Notes * Kelvin EDGAR DDOB:[birth year] (74 yo M)Acc No.[id number]:04/05/2024 Progress Note Patient: Lambert FLEMING Kelvin Harrison Provider: Edy Aguila DPM :1950 A ge:73 Y S ex:Male Date:04/05/2024 Address:[address] [place], [place] [id number] Pcp:Bianka Perez Subjective: * Chief Complaints: * [address] Carmona. * Medical History: Objective: * Vitals: Assessment: Plan: * Treatment: * Images: * The named appointment provid er may or may not be the originator of this progress note, and it is not deemed complete until electronically signed by the appointment provider. Sign off status: Pending * Provider: Edy Aguila DPM Date: 0 04/05/2024 Generated for Printi ng/Fadebrag/eTransmitting on: 1 11/29/2024 10:38 AM EST
--- NOTE | ~2025-09-29 | MR_ITS ---
CLINICAL HISTORY: G31.84 - Mild cognitive impairment of uncertain or unknown etiology MR Brain without gadolinium Comparison: CT/MI/SR - CT HEAD WITHOUT IV CONTRAST - 01/04/24 12:31 EST Findings: No restricted area of diffusion is identified to suggest an acute area of infarct. No intra-axial mass or hemorrhage. Generalized cerebral atrophy is noted with chronic nonspecific periventricular and subcortical deep white matter high-signal change. Similar chronic changes noted within the jason. These findings are nonspecific but often associated with chronic small-vessel ischemic disease in a patient of this age. No midline shift. Ex vacuo dilatation is noted of the ventricles. Vascular flow voids are intact. The orbits are normal. Mild mucosal thickening is noted within the paranasal sinuses. No focal bone lesion. IMPRESSION: Generalized atrophy and chronic white matter change without evidence of acute process. This document has been electronically signed by: Kelvin Tate MD on 10/01/2025 07:23:42
--- OUTSIDE RECORDS SUMMARY | 2025-09-29 10:38 | XMS_ITS | Patient Health Record ---
Author Organization [facility] Address [address] [place] [address] Care Team Providers Care Strategic Communications Manager Name Role Phone Alex ALY, Luiza Primary Care Provider Sav Lam Jr Unavailable [phone] Allergies No Known Allergies Reason For Referral No Information Medications Medication SIG (Take, Route, Frequency, Duration) Notes Start Date End Date Status Losartan Potassium 25 MG Tablet 1 tablet Orally Once a day Active Fish Oil Active Aspir-81 81 MG Tablet Delayed Release 1 tablet Orally Once a day Active ALPRAZolam 0.5 MG Tablet 1 tablet Orally once a day Active Pantoprazole Sodium Active Magnesium 300 MG Capsule 1 capsule with a meal Orally Once a day; Duration: 30 day(s) Active Folic Acid Active Escitalopram Oxalate Active Allopurinol 300 MG Tablet 1 tablet Orall y Once a day Active Vitamin B-1 Active Atorvastatin Calcium 10 MG Tablet 1 tablet Orally Once a day Active amLODIPine Besylate 5 MG Tablet 1 tablet Orally Once a day Active Immunizations Vaccine Route Administration Date Status Comme nts Flu vaccine no Preserv 3 and > Unknown 07/19/2018 Admin istered Social History Tobacco Use: Social History Observation Description Date Details (start date - stop date) Former Smoker NA - NA Social History Drugs/Alcohol: Social Info Question Answer Notes Alcohol Screen Did you have a drink containing alcohol in the past year? No Points 0 Interpretation Negative Tobacco Use: Social Info Question Answer Notes Tobacco Use/Smoking Patient is a former smoker How long has it been since you last smoked? 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 Alcoho l [...] ER in October 2015 Tobacco use negative. Patibonnie t quit drinking completely Problems Problem Type SNOMED Code ICD Code Onset Dates Problem Status W/U Status Risk Notes Problem Colon cancer screening (469245439) Colon cancer screening (Z12.11) Active confirmed Problem Gastroesophageal reflux disease without esophagitis (642151539) Gastroesophageal reflux disease without esophagitis (K21.9) Active confirmed Problem Blood chemistry abnormal (925252466) Increased ammonia level (R79.89) Active confirmed Problem Altered mental status (658001247) Altered mental status, unspecified altered mental status type (R41.82) Active confirmed Plan Of Treatment Future Test Test Name Order Date COLONOSCOPY 03/16/2012 COLONOSCOPY 08/03/2013 COLONOSCOPY 08/23/2018 Insurance Providers Payer Name Payer Address Payer Phone Subscriber Number Group Number Insured Name Patient Relationship to Insured Coverage Start Date Coverage End Date MED[place] [address] [place] [address] [phone] [id number] TIMOTHY EDGAR Self - patient is the insured [facility] [address] [place] [phone] [id number] TIMOTHY EDGAR Self - patient is the insured Medical (General) History Medical History History ICD Code hypertension gout elevated cholesterol esophageal reflux Denies [place],DM,CVA,Lung disease,renal dise ase Surgical History Surgery Date(Month/Year) back surgery 2012 rotator cuff left 2015 Hospitalization History Reason Date(Month/Year) amonia march
--- OUTSIDE RECORDS SUMMARY | 2025-09-29 10:39 | XMS_ITS | Patient Health Record ---
Author Organization [facility] Address [address] [place] [address] Care Team Providers Care Bone Glue Maker Name Role Phone Alex ALY, Luiza Null Primary Care Provider Un available BlackCristina Unavailable [phone] Allergies No Known Allergies Reason For Referral [...] W/U Status Risk Notes Problem Plantar wart (38681263) Plantar wart (B07.0) Active confirmed Vital Signs Blood pressure diastolic 75 mm Hg 04/22/2025 Height 5ft9in in 04/22/2025 Blood pressure systolic 118 mm Hg 04/22/2025 Weight 180 lbs 04/22/2025 BMI 26.58 kg/m2 04/22/2025 Procedures Procedure Date Ordered Date Performed Result Body Sit e 81747-Avwy Destruction, -11/22/2024 N/A 08818-Cddi Destruction, 11-2704/22/2025 N/A Encounters Encounter Location Date Provider Diagnosis [facility] [address] [address] 11/22/2024 Cristina Black Tinea unguium B35.1 ; Pain in left toe(s) M79.675 ; Left foot pain M79.672 and Plantar wart B07.0 [facility] [address] [address] 04/22/2025 Cristina Black Tinea unguium B35.1 ; [...] X ray : Foot, left 3V 08/08/2013 24915-Ghzo Destruction, 1-14 08/06/2024 16403-Jxmy Destruction, 1-14 11/22/2024 37096-Wgcf Destruction, 1-14 04/22/2025 Nail Panel 09/26/2023 Insurance Providers Payer Name Payer Address Payer Phone Subscriber Number Group Number Insured Name Patient Relationship to Insured Coverage Start Date Coverage End Date [employer] [place] Medicare Advantage [address] [facility] [address] [phone] [id number] Kelvin Chauhan Self - patient is the insured 6 Medical (General) History Medical History History ICD Code Gout reflux hypertension chicken pox measles Hepatitis B Anxiety Warts Joint implants/screws raynauds disease Vascular phlebitis (clots) Surgical History Surgery Date(Month/Year) back surgery 04/2012 rotator cuff tear repair 2014 varicose vein stripping
--- OUTSIDE RECORDS SUMMARY | 2025-09-29 10:40 | XMS_ITS | Clinical Summary ---
Author Organization [facility] Address [address] [address] Care Team Providers Care Instructor Traffic Safety Name Role Phone Didier Johnson MD Primary Care Provider [phone] Allergies No known active allergies Medications pantoprazole [...] each day 10/18/2022 Active D3-50 1.25 MG (00429 UT) capsule Take 50,000 Units by mouth [...] age to complete this topic Insurance Medicare [facility] Medicare [facility] Care Teams Instructor Traffic Safety Relationship Specialty Start Date End Date Didier Johnson MD PCP - General Internal Medicine 12/01/22
== END 2025-09-29 10:30 | disposition home or self-care (01) ==
LOC: HO.MRI 10:29
PROVIDERS: PCP Internal Medicine; Visit Provider Psychiatry & Neurology Neurology
DX: G31.84 Mild cognitive impairment of uncertain or unknown etiology (principal)
CPT/HCPCS: 70551; 76377

== ENCOUNTER → 2025-09-29 10:37 | Outpatient (BNV) | payer MEDICARE, SELFPAY | PROVIDERS: PCP Internal Medicine; Visit Provider Radiology Diagnostic Radiology | DX: G31.84 Mild cognitive impairment of uncertain or unknown etiology (principal) | CPT/HCPCS: 70551 ==

== ENCOUNTER 2025-10-16 10:25 | Outpatient (REF) | payer MEDICARE, SELFPAY ==
--- NOTE | ~2025-10-16 | XR_ITS ---
EXAMINATION: XR KNEE, RIGHT CLINICAL INFORMATION: M25.561 - Pain in right knee COMPARISON: X-ray 07/30/2024 TECHNIQUE: Three views of the right knee. FINDINGS: There are patchy lucencies in the femoral condyles and the proximal tibial epiphysis and metaphysis. These are more prominent as compared to previous.. This could be related to bone demineralization, sequela of trauma, with undisplaced fracture planes not excluded. Joint spaces are relatively maintained. Trace suprapatellar joint fluid. Vascular calcifications. XR/XR knee RT 3V IMPRESSION: Patchy lucencies in the femoral condyles, and the proximal tibial epiphysis/metaphysis. This appears more prominent as compared to previous. This could be related to bone demineralization. Other etiologies such as sequela of trauma, undisplaced fracture planes cannot be excluded. Clinically correlate. Consider further/follow-up imaging as clinically indicated. Electronically signed by: Daljit Mon MD 10/16/2025 02:51 PM DAISY
--- OUTSIDE RECORDS SUMMARY | 2025-10-17 12:47 | XMS_ITS | Patient Health Record ---
Author Organization [facility] Address [address] [place] [address] Care Team Providers Care Trust Vault Custodian Name Role Phone Alex ALY, Luiza Primary [...] Status Risk Notes Problem Colon cancer screening (984050243) Colon cancer screening (Z12.11) Active confirmed Problem Gastroesophageal reflux disease without esophagitis (019540681) Gastroesophageal reflux disease without esophagitis (K21.9) Active confirmed Problem Blood chemistry abnormal (046960975) Increased ammonia level (R79.89) Active confirmed Problem Altered mental status (795214165) Altered mental status, unspecified altered mental status type (R41.82) Active confirmed Plan Of Treatment Future Test Test Name Order Date COLONOSCOPY 03/16/2012 COLONOSCOPY 08/03/2013 COLONOSCOPY 08/23/2018 Insurance Providers Payer Name Payer Address Payer Phone Subscriber Number Group Number Insured Name Patient Relationship to Insured Coverage Start Date Coverage End Date [place] [address] [place] [address] [phone] [id number] TIMOTHY EDGAR Self - patient is the insured [facility] [address] [place] [phone] [id number] TIMOTHY EDGAR Self - patient is the insured Medical (General) History Medical History History ICD Code hypertension gout elevated cholesterol esophageal reflux Denies [place],DM,CVA,Lung disease,renal dise ase Surgical History Surgery Date(Month/Year) back surgery 2012 rotator cuff left 2015 Hospitalization History Reason Date(Month/Year) am[facility] march
--- OUTSIDE RECORDS SUMMARY | 2025-10-17 12:49 | XMS_ITS | Patient Health Record ---
Author Organization [facility] Address [address] [place] [address] Care Team Providers Care Telesales Specialist Name Role Phone Alex ALY, Luiza Null Primary Care Provider Un available BlackCristina Unavailable [phone] Allergies No Known Allergies Reason For Referral [...] W/U Status Risk Notes Problem Plantar wart (88761937) Plantar wart (B07.0) Active confirmed Vital Signs Blood pressure diastolic 75 mm Hg 04/22/2025 Height 5ft9in in 04/22/2025 Blood pressure systolic 118 mm Hg 04/22/2025 Weight 180 lbs 04/22/2025 BMI 26.58 kg/m2 04/22/2025 Procedures Procedure Date Ordered Date Performed Result Body Sit e 43490-Taum Destruction, -11/22/2024 N/A 78878-Gpgl Destruction, 11-2704/22/2025 N/A Encounters Encounter Location Date Provider Diagnosis [facility] [address] [address] 11/22/2024 Cristina Black Tinea unguium B35.1 ; Pain in left toe(s) M79.675 ; Left foot pain M79.672 and Plantar wart B07.0 [facility] [address] [address] 04/22/2025 Cristina Black Tinea unguium B35.1 ; [...] X ray : Foot, left 3V 08/08/2013 56846-Wecp Destruction, 1-14 08/06/2024 32329-Juus Destruction, 1-14 11/22/2024 34877-Ugke Destruction, 1-14 04/22/2025 Nail Panel 09/26/2023 Insurance Providers Payer Name Payer Address Payer Phone Subscriber Number Group Number Insured Name Patient Relationship to Insured Coverage Start Date Coverage End Date [employer] [place] Medicare Advantage [address] [facility] [address] [phone] [id number] Kelvin Chauhan Self - patient is the insured 6 Medical (General) History Medical History History ICD Code Gout reflux hypertension chicken pox measles Hepatitis B Anxiety Warts Joint implants/screws raynauds disease Vascular phlebitis (clots) Surgical History Surgery Date(Month/Year) back surgery 04/2012 rotator cuff tear repair 2014 varicose vein stripping
--- OUTSIDE RECORDS SUMMARY | 2025-10-17 12:49 | XMS_ITS | Clinical Summary ---
Author Organization [facility] Address [address] [address] Care Team Providers Care Title I Instructional Assistant Name Role Phone Didier Johnson MD Primary Care Provider +1- [phone] Allergies No known active allergies Medications pantoprazole [...] each day 10/18/2022 Active D3-50 1.25 MG (99533 UT) capsule Take 50,000 Units by mouth [...] age to complete this topic Insurance Medicare [facility] Medicare [facility] Care Teams Title I Instructional Assistant Relationship Specialty Start Date End Date Didier Johnson MD PCP - General Internal Medicine 12/01/22
== END 2025-10-16 10:26 | disposition home or self-care (01) ==
LOC: HO.HOSX 10:25
PROVIDERS: Visit Provider Orthopaedic Surgery
DX: M25.561 Pain in right knee (principal)
CPT/HCPCS: 20610; 73562; 99202; J1010; J2003

== ENCOUNTER 2025-10-16 14:11 | Outpatient (AMB) | payer MEDICARE, SELFPAY ==
--- NOTE | 2025-10-16 14:38 | MHC.OFFVIS ---
Intake Visit Reasons: New prob Pain in right knee Intake Note: Kelvin is a 74 year old male who presents with complaints of progressively worsening right knee pain. He describes his pain as sharp in nature. He states that most of the pain is along the medial aspect of his knee. He states that his knee will give out intermittently. He has tried Tylenol, anti-inflammatory medicines and prednisone which have given him mild relief. Has had cortisone injections given into his shoulders which gave him good relief. He has not had an MRI of his knee. Allergies No Known Allergies (No Known Allergies*) Allergy (Verified 10/16/25 14:47) Medication List - Last Reconciled 10/16/25 by Gunnar Batres MD allopurinol 300 mg PO DAILY alprazolam 0.25 mg (1/2 x 0.5 mg) PO DAILY PRN amlodipine 5 mg PO DAILY atorvastatin 10 mg PO DAILY escitalopram oxalate 20 mg PO DAILY losartan 25 mg PO DAILY 90 days magnesium oxide 400 mg PO DAILY omeprazole 20 mg PO DAILY PRN prednisone 40 mg (2 x 20 mg) PO [facility]LY [facility] Medical History (Updated 10/14/25 @ 14:25 by Gunnar Batres MD) Mild cognitive impairment Memory change Onychomycosis of left great toe Thiamine deficiency Vitamin D deficiency Chronic gastroesophageal reflux disease Obesity (BMI 30.0-34.9) Hepatic encephalopathy Alcohol use disorder Hyperammonemia Chronic deep vein thrombosis (DVT) of distal vein of right lower extremity History of hepatitis B Varicose vein of leg Pain in joint, foot, left Lower leg DVT (deep venous thromboembolism), acute H/O irritable bowel syndrome Insomnia Anxiety Mixed dyslipidemia HTN (hypertension) Gout Impaired fasting glucose Surgical History History of esophagogastroduodenoscopy (EGD) H/O varicose vein stripping Hx of colonoscopy Status post rotator cuff surgery S/P lumbar microdiscectomy Family History Mother Varicose vein of leg Father No problems noted. Brother No problems noted. Brother No problems noted. Son No problems noted. Son No problems noted. Social History Household Members: Spouse Housing: House Are you a primary healthcare administration internship to a significant other at home: No Do you presently have visiting nurse or other home services: No Alcohol intake: former Patient Tobacco Use Status: Current everyday Tobacco user Tobacco use type: Cigar e-Cigarette/Vaping Use: Never Used Substance Use Type: Marijuana Advance Directives Date on File: 04/26/23 Current occupational status: retired Cognitive needs: No Hearing needs: No Vision needs: Yes Physical Exam Extrem Other: Right knee examination shows a minimal effusion, mild crepitus with range of motion, tenderness along his medial joint line, positive Estephanie's test, no instability Office Procedures AMB Joint Injection/Aspiration Joint Injection/Aspiration Primary Site: Right Knee Prep: site was prepped using aseptic technique Injected: 40 mg of, DepoMedrol, with 3 mL of and 1% plain Lidocaine Procedure: The patient tolerated the procedure well Coding - Large joint Procedure code (CPT) selection complete Results Reviewed Results Reviewed: X-rays of the patient's right knee show mild to moderate diffuse degenerative changes, no acute bony abnormalities Assessment & Plan Assessment & Plan (1) Right knee pain: Code(s): M25.561 - Pain in right knee Category: Medical Plan Mr. Chauhan presents with right knee pain and mechanical symptoms due to early degenerative joint disease as well as possible medial meniscus tearing. I had a lengthy discussion with the patient regarding the treatment options. The risks and benefits of a right knee cortisone injection were discussed at length with the patient. The patient wished proceed. He tolerated the injection well. He will continue with his activity modifications. He will contact me prior to his follow-up appointment in 3 months should any questions or concerns arise. If he does not get lasting relief from the cortisone injection I will order an MRI of his right knee to further evaluate the status of his medial meniscus. Feel free to call me at any time should questions regarding his orthopedic management arise. I spent 20 minutes in reviewing the patient's records and imaging studies, seeing the patient and documenting in the medical record. Orders: Orders AMB Joint Injection/Aspiration 10/16/25 M25.561 - Pain in right knee XR knee RT 3V 10/16/25 M25.561 - Pain in right knee Coding Level of Care Code New Pt Level 3 (86516) Complex visit Add On G2211 Diagnoses Right knee pain M25.561 CPT Codes Coding - 80247 Large joint: 21467 - Large joint ([id number])
--- OUTSIDE RECORDS SUMMARY | 2025-10-16 17:01 | XMS_ITS | Patient Health Record ---
Author Organization [facility] Address [address] [place] [address] Care Team Providers Care Printing And Stamping Supervisor Name Role Phone Alex ALY, Luiza Null Primary Care Provider Un available BlackCristina Unavailable [phone] Allergies No Known Allergies Reason For Referral [...] Tartrate 10 MG 1 tablet at bedt cadnace as needed Orally Once a day Not-Taking [...] W/U Status Risk Notes Problem Plantar wart (85726598) Plantar wart (B07.0) Active confirmed Vital Signs Blood pressure diastolic 75 mm Hg 04/22/2025 Height 5ft9in in 04/22/2025 Blood pressure systolic 118 mm Hg 04/22/2025 Weight 180 lbs 04/22/2025 BMI 26.58 kg/m2 04/22/2025 Procedures Procedure Date Ordered Date Performed Result Body Sit e 62723-Vyte Destruction, -11/22/2024 N/A 29660-Lvgb Destruction, 11-2704/22/2025 N/A Encounters Encounter Location Date Provider Diagnosis [facility] [address] [address] 11/22/2024 Cristina Black Tinea unguium B35.1 ; Pain in left toe(s) M79.675 ; Left foot pain M79.672 and Plantar wart B07.0 [facility] [address] [address] 04/22/2025 Cristina Black Tinea unguium B35.1 ; [...] X ray : Foot, left 3V 08/08/2013 90517-Apyo Destruction, 1-14 08/06/2024 83078-Jojm Destruction, 1-14 11/22/2024 93036-Iaxl Destruction, 1-14 04/22/2025 Nail Panel 09/26/2023 Insurance Providers Payer Name Payer Address Payer Phone Subscriber Number Group Number Insured Name Patient Relationship to Insured Coverage Start Date Coverage End Date [employer] [place] Medicare Advantage [address] [facility] [address] [id number] Kelvin Chauhan Self - patient is the insured 6 Medical (General) History Medical History History ICD Code Gout reflux hypertension chicken pox measles Hepatitis B Anxiety Warts Joint implants/screws raynauds disease Vascular phlebitis (clots) Surgical History Surgery Date(Month/Year) back surgery 04/2012 rotator cuff tear repair 2014 varicose vein stripping
--- OUTSIDE RECORDS SUMMARY | 2025-10-16 17:01 | XMS_ITS | Patient Health Record ---
Author Organization [facility] Address [address] [place] [address] Care Team Providers Care Porcelain Enamel Repairer Name Role Phone Alex ALY, Luiza Primary [...] Status Risk Notes Problem Colon cancer screening (027586183) Colon cancer screening (Z12.11) Active confirmed Problem Gastroesophageal reflux disease without esophagitis (527390061) Gastroesophageal reflux disease without esophagitis (K21.9) Active confirmed Problem Blood chemistry abnormal (322548393) Increased ammonia level (R79.89) Active confirmed Problem Altered mental status (447239449) Altered mental status, unspecified altered mental status type (R41.82) Active confirmed Plan Of Treatment Future Test Test Name Order Date COLONOSCOPY 03/16/2012 COLONOSCOPY 08/03/2013 COLONOSCOPY 08/23/2018 Insurance Providers Payer Name Payer Address Payer Phone Subscriber Number Group Number Insured Name Patient Relationship to Insured Coverage Start Date Coverage End Date [place] [address] [place] [address] [phone] [id number] TIMOTHY EDGAR Self - patient is the insured [facility] [address] [place] [phone] [id number] TIMOTHY EDGAR Self - patient is the insured Medical (General) History Medical History History ICD Code hypertension gout elevated cholesterol esophageal reflux Denies [place],DM,CVA,Lung disease,renal dise ase Surgical History Surgery Date(Month/Year) back surgery 2012 rotator cuff left 2015 Hospitalization History Reason Date(Month/Year) [facility] march
== END 2025-10-16 14:58 | disposition home or self-care (01) ==
LOC: HO.HOS 14:12
PROVIDERS: PCP Internal Medicine; Visit Provider Orthopaedic Surgery
DX: M25.561 Pain in right knee (principal)
CPT/HCPCS: 20610; 99203

== ENCOUNTER → 2025-10-16 14:28 | Outpatient (BNV) | payer MEDICARE, SELFPAY | PROVIDERS: Visit Provider Radiology Diagnostic Ultrasound | DX: M25.561 Pain in right knee (principal) | CPT/HCPCS: 73562 ==

== ENCOUNTER 2025-10-23 14:42 | Outpatient (AMB) | payer MEDICARE, SELFPAY ==
[2025-10-23 14:44] VITALS: BP 116/62; PULSE 63; O2SAT 97; BMI 27.4
--- NOTE | 2025-10-23 14:44 | MHC.OFFVIS ---
Vital Signs 10/23/25 14:44 Height 5 ft 9 in Weight 185 lb 8 oz BMI 27.4 BP 116/62 Blood Pressure Location Rt brachial Position Sitting Pulse 63 Pulse Source Pulse Oximeter Pulse Oximetry (%) 97 Oxygen Delivery Method Room Air Intake Visit Reasons: Follow up Intake Note: Follow up Mild cognitive impairment [employer] Supervisor Required: No Accompanied by: Spouse Allergies No Known Allergies (No Known Allergies*) Allergy (Verified 10/23/25 14:44) Medication List - Last Reconciled 10/23/25 by Sarah Haji MD allopurinol 300 mg PO DAILY alprazolam 0.25 mg (1/2 x 0.5 mg) PO DAILY PRN amlodipine 5 mg PO DAILY atorvastatin 10 mg PO DAILY escitalopram oxalate 20 mg PO DAILY losartan 25 mg PO DAILY 90 days magnesium oxide 400 mg PO DAILY memantine 7 mg PO DAILY omeprazole 20 mg PO DAILY PRN HPI Comments Details: 74y/o Right handed male comes for follow up of short term memory for about 1 year. His MRI was nonfocal , has white matter changes . labs normal Cognitive eval c/w mCI He drinks 2 glasses of wine a day . History from last visit-He is accompanied by his Mary Anne who helps with history. He misplaces things around house, searching for keys, glasses etc. He frequently repeats himself.he forgets conversations and keeps notes for all important appointments. he gets easily confused with instructions - may get the date or time wrong. He has trouble with TV remote.He takes his meds - uses a pill box. He manages his finances with his . No change in behavior- gets upset when he is confused. No head injury No depression. He has h/o anxiety .He was a heavy drinker , had hepatic encephelopathy 3 years ago and quit drinking. He smokes 1 joint a day for relaxation. 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 His older brother - 77 yrs old has dementia. He used to be a heavy snorer. [facility] Medical History Mild cognitive impairment Memory change Onychomycosis of left great toe Thiamine deficiency Vitamin D deficiency Chronic gastroesophageal reflux disease Obesity (BMI 30.0-34.9) Hepatic encephalopathy Alcohol use disorder Hyperammonemia Chronic deep vein thrombosis (DVT) of distal vein of right lower extremity History of hepatitis B Varicose vein of leg Pain in joint, foot, left Lower leg DVT (deep venous thromboembolism), acute H/O irritable bowel syndrome Insomnia Anxiety Mixed dyslipidemia HTN (hypertension) Gout Impaired fasting glucose Surgical History History of esophagogastroduodenoscopy (EGD) H/O varicose vein stripping Hx of colonoscopy Status post rotator cuff surgery S/P lumbar microdiscectomy Family History Mother Varicose vein of leg Father No problems noted. Brother No problems noted. Brother No problems noted. Son No problems noted. Son No problems noted. Social History Household Members: Spouse Housing: House Are you a primary chiropractic care to a significant other at home: No Do you presently have visiting nurse or other home services: No Alcohol intake: former Patient Tobacco Use Status: Current everyday Tobacco user Tobacco use type: Cigar e-Cigarette/Vaping Use: Never Used Substance Use Type: Marijuana Advance Directives Date on File: 04/26/23 Current occupational status: retired Cognitive needs: No Hearing needs: No Vision needs: Yes Physical Exam Vital Signs: Last Vital Signs Pulse 63 10/23/25 14:44 BP 116/62 10/23/25 14:44 Pulse Ox 97 10/23/25 14:44 Oxygen Delivery Method Room Air 10/23/25 14:44 BMI result Body Mass Index 27.4 Const General: cooperative, healthy appearing, comfortable and no acute distress Nutritional Appearance: average body habitus Orientation/consciousness: patient oriented x3 Eyes Pupils: Equal, round and reactive pupils present Neuro General: patient oriented x3, gait normal, tone normal, moves all extremities and no focal motor deficits Cranial nerves: Yes Facial sensation intact/muscles of mastication intact, Yes Equal, round and reactive pupils present, Yes Bilaterally intact EOM present, Yes Nystagmus not present, Yes Normal facial strength present, Yes Midline tongue present, Yes Symmetric palate elevation present and Yes Ability to bilaterally elevate shoulders present Cognition (Neuro): normal cognition Gait exam (Neuro): Normal gait present Motor exam (neuro): 5/5 motor strength present throughout and Normal motor muscle tone present throughout Coordination: [id number] test normal Assessment & Plan Assessment & Plan (1) Mild cognitive impairment: Comment: ? vascular Code(s): G31.84 - Mild cognitive impairment of uncertain or unknown etiology Category: Medical Plan Labs - homocysteine was normal MRI brain- white matter changes Speech and hearing- c/w MCI and suggested cog therapy 1/week for 6 weeks I will trial him on memantine XR 7 mg qd decrease wine consumption Medications: New memantine 7 mg PO DAILY 30 ea 3RF Coding Level of Care Code Est Pt Level 4 (77048) Add On Problem Visit Only Diagnoses Mild cognitive impairment G31.84
--- OUTSIDE RECORDS SUMMARY | 2025-10-23 23:03 | XMS_ITS | Clinical Summary ---
Author Organization [facility] Facility Address [address] [address] Care Team Providers Care Social Work Faculty Member Name Role Phone Diider Johnson MD Primary Care Provider [phone] Allergies No known active allergies Medications pantoprazole [...] each day 10/18/2022 Active D3-50 1.25 MG (35026 UT) capsule Take 50,000 Units by mouth [...] age to complete this topic Insurance Medicare [facility] Medicare [facility] Care Teams Social Work Faculty Member Relationship Specialty Start Date End Date Didier Johnson MD PCP - General Internal Medicine 12/01/22
== END 2025-10-23 15:22 | disposition home or self-care (01) ==
LOC: HO.HSMS 14:42
PROVIDERS: Visit Provider Psychiatry & Neurology Neurology
DX: G31.84 Mild cognitive impairment of uncertain or unknown etiology (principal)
CPT/HCPCS: 99214; G2211

== ENCOUNTER → 2025-10-23 14:42 | Outpatient (BNVA) | payer MEDICARE, SELFPAY | PROVIDERS: Visit Provider Psychiatry & Neurology Neurology | DX: G31.84 Mild cognitive impairment of uncertain or unknown etiology (principal); I10 Essential (primary) hypertension; F17.210 Nicotine dependence, cigarettes, uncomplicated | CPT/HCPCS: 99212 ==